=== PATIENT | female | born 1970 | race Caucasian/White ===

== ENCOUNTER 2019-08-02 09:59 | Emergency (ER) | payer BC, SELFPAY ==
--- NOTE | ~2019-08-02 | XR_ITS ---
EXAMINATION: XR chest 2V DATE: 08/02/2019 10:44 INDICATION: Shortness of breath and cough TECHNIQUE: PA and lateral views of the chest are obtained. COMPARISON: None available FINDINGS: The lungs are free of acute opacities. There is no pleural effusion or pneumothorax. The ca rdiomediastinal silhouette is normal. There is moderate thoracic spondylosis. IMPRESSION: 1. No acute cardiopulmonary abnormality. Reviewed, dictated and finalized at location A.
--- NOTE | ~2019-08-02 | CT_ITS ---
EXAMINATION: CTA chest PE protocol DATE: 08/02/2019 11:31 INDICATION: Left-sided chest pain, fever and shortness of breath TECHNIQUE: Computed tomography angiography (CTA) of the chest was performed with 100 mL Omnipaque-350 intravenous contrast timed to evaluate the pulmonary arteries. Coronal maximum intensity projection 3D-reconstructions were created by the technologist. The dose-length product (DLP) was 301.48 mGy-cm. Automated exposure control and iterative reconstruction technique were employed. COMPARISON: None. FINDINGS: The pulmonary arteries are well-opacified. No pulmonary embolism is identified. There is mi ld atelectasis of the lower lobes. No pleural effusion or pneumothorax is identified. No pathological ly enlarged thoracic lymph nodes are identified. The heart size is normal. There is mild thoracic spo ndylosis. IMPRESSION: 1. No pulmonary embolism or acute cardiopulmonary abnormality. Reviewed, dictated and finalized at location A.
--- NOTE | 2019-08-02 10:11 | ED_ITS ---
I attest that this documentation has been prepared under the direction and in the presence of Katherine Sams MD. Santos Lopez, Abbyibdc 08/02/19;10:12 HPI - URI/Sore Throat General Chief Complaint: Upper Respiratory Infection Stated Complaint: +INFLUENZA A, RIB PAIN Time Seen by Provider: 08/02/19 10:06 Related Data Allergies Allergy/AdvReac Type Severity Reaction Status Date / Time No Known Allergies Allergy Verified 08/02/19 10:11
[2019-08-02 10:14] VITALS: BP 132/91; PULSE 104; RESP 20; TEMP 37.3; O2SAT 99
--- NOTE | 2019-08-02 10:14 | ED_ITS ---
I attest that this documentation has been prepared under the direction and in the presence of Katherine Sams MD. Santos Lopez, Scribdc 08/02/19;10:14 HPI - Chest Pain General Chief Complaint: Upper Respiratory Infection Stated Complaint: +INFLUENZA A, RIB PAIN Time Seen by Provider: 08/02/19 10:06 Related Data Allergies Allergy/AdvReac Type Severity Reaction Status Date / Time No Known Allergies Allergy Verified 08/02/19 10:11
--- NOTE | 2019-08-02 10:15 | ED.GENADULT ---
HPI - General Adult General Chief complaint: Upper Respiratory Infection Stated complaint: +INFLUENZA A, RIB PAIN Time Seen by Provider: 08/02/19 10:06 Source: patient Mode of arrival: ambulatory Limitations: no limitations History of Present Illness HPI narrative: The pt is a 49 y/o female who presents to the ED c/o left-sided ribs pain onset one day ago. Pt states that she tested positive for Influenza A on 07/29/19. The pt states that she received Tamiflu and Tessalon Perles. She states that the pain radiates to the back and worsens when she coughs. She notes that she has utilized Tylenol and a heating pad to try and alleviate the pain. Pt states that she experienced a fever that resolved one day ago after taking Tylenol. She also notes that she had a fever prior to the pain beginning as well, but this also resolved. Pt reports cough and SOB that both began prior to the pain's onset. She denies N/V and rash. Pt notes that she has a PMHx of asthma and Ankylosing spondylitis. MD complaint: Left-sided ribs pain Onset (ago): day(s) (1) Location: chest (Left-sided ribs) Radiation: back Exacerbating factors: other (Coughing) Associated symptoms: cough (Onset prior to pain), fever/chills (Resolved) and shortness of breath (Onset prior to pain) Treatments prior to arrival: other (Tylenol, heating pad) Related Data Home Medications Medication Instructions Recorded Confirmed benzonatate 100 mg PO TID PRN 08/02/19 fluticasone furoate-vilanterol 1 inh INHALATION DAILY 08/02/19 [Breo Ellipta] methylprednisolone See Rx Instructions .ROUTE .COMPLEX 08/02/19 oseltamivir 75 mg PO BID 08/02/19 pantoprazole 40 mg PO DAILY 08/02/19 Allergies Allergy/AdvReac Type Severity Reaction Status Date / Time No Known Allergies Allergy Verified 08/02/19 10:11 Review of Systems Review of Systems: All systems reviewed & are unremarkable except as noted in HPI and below Constitutional: Constitutional: Reports fever(s) (Resolved) Respiratory: Respiratory: Reports cough (Onset prior to pain) and Reports dyspnea (Onset prior to pain) Gastrointestinal: Gastrointestinal: Denies nausea and Denies vomiting Musculoskeletal: Musculoskeletal: Reports other (Left-sided ribs pain that radiates to the back) Integumentary/Breasts: Skin/Breast: Denies rash PMFSH Past Medical History Medical History (Updated 08/02/19 @ 12:52 by Katherine Sams MD) [place]'s disease Ankylosing spondylitis Asthma Humberto disease GERD (gastroesophageal reflux disease) Surgical History Surgical History (Updated 08/02/19 @ 10:21 by Santos Lopez) S/P foot surgery, left Social History Social History (Updated 08/02/19 @ 10:21 by Santos Lopez) Smoking status: Never smoker Gender identity (if verbalized by the patient): Female Exam Narrative: Exam Narrative: GENERAL: Well-appearing, well-nourished, and in no acute distress. HEAD: Normocephalic, atraumatic EYES: PERRLA and EOMI, conjunctiva clear without discharge EARS: TM's clear bilaterally without erythema or dullness NOSE: Nares clear, no rhinorrhea or epistaxis THROAT:Mucous membranes moist, Oropharynx normal without erythema, exudate, peritonsillar swelling or fluctuance NECK: Supple, without lymphadenopathy or mass RESPIRATORY: No respiratory distress, Airway patent, Respirations non-labored, Expiratory wheezing to left lower, left lower anterior tenderness HEART: Regular rate and rhythm. No murmur heard. Normal peripheral pulses. ABDOMEN: Soft, nontender, nondistended, normal active bowel sounds. No masses. No rebound or guarding, No organomegaly. EXTREMITIES: No edema, normal strength with full range of motion. SKIN: Warm, dry, normal color without rash NEURO: Alert and oriented x3. CN 2-12 grossly intact. No focal deficits. PSYCH: Normal mood and affect. Course Reevaluation(s) Reevaluation #1: I have discussed with patient that her CT was negative for pneumonia and
--- NOTE | 2019-08-02 10:18 | ECG_ITS ---
Measurements Intervals [place] Rate: 92 P: 57 TX: 137 QRS: 15 QRSD: 87 T: 31 QT: 361 QTc: 449 Interpretive Statements SINUS RHYTHM BASELINE ARTIFACT- III, V1-V6 NORMAL ECG Electronically Signed On 08-02-2019 13:28:22 CDT by Gordon Serna D.O.
[2019-08-02] MEDS: IPRATROPIUM BR 0.02% INH SOLN 0.5 MG/2.5 ML VIAL INHALATION (10:28)
[2019-08-02] MEDS: ALBUTEROL SULFATE NEB 2.5 MG/0.5 ML INH 5 MG INHALATION (10:28)
[2019-08-02 10:31] VITALS: PULSE 87; RESP 18
[2019-08-02 10:35] VITALS: PULSE 88; RESP 18
[2019-08-02] MEDS: KETOROLAC 30 MG/ML VIAL (*BKC) IV PUSH (10:36)
[2019-08-02 10:38] LABS: Basophils Percent Auto 0.4 % (0.2-1.2); Eosinophils Percent Auto 0.4 % (0-4.4); Hematocrit 44.6 % (37.0-47.0); Hemoglobin 14.8 g/dL (12.0-15.0); Immature Granulocyte Absolute 0.02 K/mm3 (0.00-0.031); Immature Granulocyte Percent A 0.4 % (0-0.5); Lymphocytes Absolute Auto 1.71 K/mm3 (0.9-3.2); Lymphocytes Percent Auto 37.3 % (18.3-44.2); Mean Corpuscular HGB Conc 33.2 g/dl (32-36); Mean Corpuscular Hemoglobin 29.4 pg (26-34); Mean Corpuscular Volume 88.7 fl (80-100); Mean Platelet Volume 9.6 fl (7.4-10.4); Monocytes Absolute Auto 0.7 K/mm3 (0.1-0.6); Monocytes Percent Auto 15.9 % (2.6-8.5); Neutrophils Absolute Auto 2.1 K/mm3 (1.3-6.7); Neutrophils Percent Auto 45.6 % (45.5-73.1); Platelet Count Result 318 k/mm3 (150-375); Red Blood Count 5.03 M/mm3 (4.2-5.4); Red Cell Distribution Width 12.7 % (11.5-14.5); White Blood Count 4.6 K/mm3 (4.5-10.0)
[2019-08-02 10:46] LABS: Lactic Acid Reflex 0.7 mmol/L (0.7-2.1)
[2019-08-02 10:47] LABS: Alanine Aminotransferase 79 U/L (4-35); Albumin Level 4.2 g/dL (3.5-5.1); Alkaline Phosphatase 78 U/L (38-126); Aspartate Amino Transferase 77 U/L (14-36); Bilirubin,Total 0.5 mg/dL (0.2-1.3); Blood Urea Nitrogen 10 mg/dL (7-17); Calcium 8.6 mg/dL (8.4-10.2); Carbon Dioxide 24 mmol/L (22-30); Chloride 102 mmol/L (98-107); Estimated CRCL calculation 98 ml/min; Estimated Glomerular Filt Rate > 60; Glucose 90 mg/dL (65-105); Potassium 3.5 mmol/L (3.4-5.0); Sodium 137 mmol/L (137-145)
== END 2019-08-02 13:04 | disposition home or self-care (01) ==
PROVIDERS: Emergency Provider General Practice
DX: J10.1 Influenza due to other identified influenza virus with other respiratory manifestations (principal); J45.909 Unspecified asthma, uncomplicated; E27.1 Primary adrenocortical insufficiency; E24.9 Cushing's syndrome, unspecified; K21.9 Gastro-esophageal reflux disease without esophagitis; M45.9 Ankylosing spondylitis of unspecified sites in spine
CPT/HCPCS: 36415; 71046; 71275; 80053; 83605; 85025; 93005; 94640; 96374; 99284; J1885; Q9967

== ENCOUNTER 2021-04-11 12:23 | Emergency (ER) | payer BC, SELFPAY ==
--- NOTE | ~2021-04-11 | XR_ITS ---
EXAMINATION: XR chest 2V DATE: 04/11/2021 13:08 INDICATION: Cough and congestion TECHNIQUE: PA and lateral views of the chest were obtained. COMPARISON: Chest radiograph and CT dated 08/02/2019 FINDINGS: The lungs remain clear with no focal airspace opacities, pulmonary edema, pleural effusion or pneumot horax. The cardiomediastinal silhouette is normal. Mild thoracic levocurvature with moderate spondylo sis. IMPRESSION: 1. No acute cardiopulmonary disease. Reviewed, dictated and finalized at location A. TION CLASSIFICATION MANAGER
[2021-04-11 12:42] VITALS: BP 133/65; PULSE 91; RESP 16; TEMP 36.6; O2SAT 99
--- NOTE | 2021-04-11 12:54 | ED.URI ---
HPI - URI/Sore Throat General Chief Complaint: Upper Respiratory Infection Stated Complaint: Sinus,Sore Throat,Headache,Cough Time Seen by Provider: 04/11/21 12:54 Source: patient Mode of arrival: ambulatory Limitations: no limitations History of Present Illness HPI Narrative: Sienna Walker is a 51 yo female with a PMH of GERD, ankylosing spondylitis, who comes to [facility] with upper respiratory symptoms of sore throat, sinus drainage, headache and cough x1 week-states she is not taking [id number] meds but has not improved her symptoms Related Data Home Medications Medication Instructions Recorded Confirmed fluticasone furoate-vilanterol 1 inh INHALATION DAILY 08/02/19 [Breo Ellipta] oseltamivir 75 mg PO BID 08/02/19 pantoprazole 40 mg PO DAILY 08/02/19 Remicade 04/11/21 meloxicam 04/11/21 Allergies Allergy/AdvReac Type Severity Reaction Status Date / Time No Known Allergies Allergy Verified 08/02/19 10:11 Review of Systems Review of Systems: CONSTITUTIONAL: Denies fever, chills, sweats. EYES: Denies visual changes, redness, discharge. ENT: Denies rhinorrhea, congestion, sore throat, otalgia. CARDIOVASCULAR: Denies chest pain, palpitations, edema. RESPIRATORY: Denies dyspnea, wheezing, cough GASTROINTESTINAL: Denies abdominal pain, nausea, vomiting, diarrhea. GENITOURINARY: Denies dysuria, hematuria, abnormal discharge SKIN: Denies rash or itching. NEUROLOGIC: Denies numbness, or focal weakness. PSYCHIATRIC: Denies anxiety or depression. [facility] Past Medical History Medical History [place]'s disease Ankylosing spondylitis Asthma Humberto disease GERD (gastroesophageal reflux disease) Surgical History Surgical History S/P foot surgery, left Social History Social History Smoking status: Never smoker Gender identity (if verbalized by the patient): Female Comments At time of signature, I agree with nursing past medical, surgical, social and family history. There is no relevant family history pertinent to the presenting complaint. Exam Narrative: GENERAL: This is a well-nourished, well-developed patient, in mild distress. HEAD: normocephalic, atraumatic. EYES: PERRL. Sclera clear/white. Vision is grossly intact. EARS: External ears normal, auditory canals clear and without drainage, bulging TMs due to fluid. Hearing grossly intact. NOSE: External nose normal without nasal discharge, nares with redness, has rhinorrhea. THROAT: Mucous membranes moist, posterior pharynx erythema w PND. Voice diminished NECK: Neck supple, non-tender CARDIOVASCULAR: Regular rate and rhythm without murmurs, gallops, or rubs. RESPIRATORY: coarselear to auscultation. Breath sounds equal bilaterally. No wheezes, rales, or rhonchi. GASTROINTESTINAL: Abdomen soft, non-tender, SKIN: warm, intact with no suspicious lesions or rash, good texture and turgor. NEURO: awake, alert, and oriented to person, place and time. There were no obvious focal neurologic abnormalities. Steady gait EXTREMITIES: Normal range of motion. BACK: Nontender without deformity Course Course Emergency Course: Patient comes in with a weeks worth of worsening upper respiratory symptoms including laryngitis, ear pain and sore throat. On Remicade so may not be running fever Chest x-ray done-no acute cardiopulmonary disease Started on prednisone Zithromax Tessalon Michael; use albuterol inhaler as needed Vital Signs Vital signs: Vital Signs Temperature 97.9 F 04/11/21 12:42 Pulse Rate 91 04/11/21 12:42 Respiratory Rate 16 04/11/21 12:42 Blood Pressure 133/65 04/11/21 12:42 Pulse Oximetry 99 04/11/21 12:42 Temperature 97.9 F 04/11/21 12:42 Pulse Rate 91 04/11/21 12:42 Respiratory Rate 16 04/11/21 12:42 Blood Pressure 133/65 04/11/21 1
== END 2021-04-11 13:33 | disposition home or self-care (01) ==
PROVIDERS: Emergency Provider Nurse Practitioner; PCP Internal Medicine
DX: J04.0 Acute laryngitis (principal); J40 Bronchitis, not specified as acute or chronic; E27.1 Primary adrenocortical insufficiency; M45.9 Ankylosing spondylitis of unspecified sites in spine; J45.909 Unspecified asthma, uncomplicated; K21.9 Gastro-esophageal reflux disease without esophagitis
CPT/HCPCS: 71046; 99213; G0463

== ENCOUNTER 2021-08-28 12:55 | Emergency (ER) | payer BC, SELFPAY ==
--- NOTE | ~2021-08-28 | XR_ITS ---
EXAMINATION: XR foot RT min 3V EXAM DATE: 08/28/2021 14:21 INDICATION: Loss of toenail right 1st toe, unknown cause. Possible foreign body. TECHNIQUE: Right foot dorsoplantar, lateral and oblique projections obtained and reviewed. There is no prior study for comparison. FINDINGS: There are no bony erosions identified. Small inferior right calcaneal spur. There are no acute fractures or dislocations identified. There is no subcutaneous gas. The soft tissue is unrema rkable. There are no radiopaque foreign bodies. Mild bunion and hallux valgus. Mild to moderate os teoarthritis at the 2nd, 3rd tarsometatarsal joint. IMPRESSION: No radiopaque foreign bodies identified. Reviewed, dictated and finalized at location A.
[2021-08-28 13:26] VITALS: BP 153/91; PULSE 86; RESP 16; TEMP 36.8; O2SAT 99
[2021-08-28 13:33] VITALS: BP 153/91; PULSE 86; RESP 16; TEMP 36.8; O2SAT 99
--- NOTE | 2021-08-28 14:10 | ED.GENADULT ---
HPI - General Adult General Chief complaint: Extremity Problem,Nontraumatic Stated complaint: toenail fell off Source: patient Mode of arrival: ambulatory Limitations: no limitations History of Present Illness HPI narrative: Patient presents for evaluation of pain in the right great toe. She indicates she was walking with some friends about a month ago and had some mild discomfort at that time. Pain improved over the week. Two days ago she noted some yellow drainage from beneath the nailplate of the left great toe. The nail seemed to come of the nailbed yesterday. She was able to trim the nail back. She continues to have a throbbing sensation in the affected digit. No fever, chills, nausea, vomiting. She is diabetic. She does not smoke. Date of last tetanus unknown. She has underlying ankylosing spondylitis for which she receives remicade per rheumatology. In the past she had a UTI that progressed quite quickly to the point that she was admitted for four days for IV abx. She came in today and she was concerned this could progress quickly. Related Data Home Medications Medication Instructions Recorded Confirmed fluticasone furoate-vilanterol 1 inh INHALATION DAILY 08/02/19 08/28/21 [Breo Ellipta] pantoprazole 40 mg PO DAILY 08/02/19 08/28/21 meloxicam 15 mg PO DAILY 04/11/21 08/28/21 infliximab [Remicade] 100 mg IV USEASDIRECTD 08/28/21 08/28/21 Allergies Allergy/AdvReac Type Severity Reaction Status Date / Time No Known Allergies Allergy Verified 08/28/21 13:28 Review of Systems Review of Systems: CONSTITUTIONAL: Denies fever, chills, or sweats. EYES: Denies visual changes, redness, or discharge. ENT: Denies rhinorrhea, congestion, sore throat, or otalgia. CARDIOVASCULAR: Denies chest pain, palpitations, or edema. RESPIRATORY: Denies cough or dyspnea. GASTROINTESTINAL: Denies abdominal pain, nausea, vomiting, or diarrhea. GENITOURINARY: Denies dysuria or hematuria. SKIN: Reports yellow drainage from left great toe. MUSCULOSKELETAL: Reports pain in left great toe. Denies back pain NEUROLOGIC: Denies headache, numbness, dizziness, or weakness. PSYCHIATRIC: Denies anxiety or depression. [facility] Past Medical History Medical History (Updated 08/28/21 @ 14:32 by JAMILA AbramsP, ) [place]'s disease Ankylosing spondylitis Asthma [place] disease GERD (gastroesophageal reflux disease) Surgical History Surgical History Hx of total adrenalectomy S/P foot surgery, left Family History Family History Father Diabetes mellitus Social History Social History Smoking status: Never smoker Alcohol intake: never Substance use: never Living arrangements: with family Gender identity (if verbalized by the patient): Female Sexual Orientation (if Verbalized by the Patient): Straight or Heterosexual Spiritual care concerns: No Exam Narrative: GENERAL: Well-appearing, well-nourished, and in no acute distress. HEAD: Normocephalic, atraumatic. EYES: PERRLA and EOMI. ENT: Nares clear, no rhinorrhea or epistaxis. Mucous membranes moist. Oropharynx without tonsillar hypertrophy exudate or other lesions. Bilateral TMs pearly bartlett nonbulging NECK: Supple. No adenopathy or masses. No carotid bruits or JVD CHEST: Clear to auscultation. No respiratory distress. No wheezes rales or rhonchi HEART: Regular rate and rhythm. No murmur heard. Normal peripheral pulses. ABDOMEN: Soft, nontender, nondistended, normal active bowel sounds. EXTREMITIES: Normal range of motion. No edema. SKIN: There is a transverse incision through the nailplate of left great toe with distal portion of that nailplate absent. No discharge noted NEURO: No focal deficits. Alert and oriented x3. PSYCH: Normal mood and affect. Course Course Emergency C
[2021-08-28] MEDS: TETANUS,DIPHTHERIA,AC PERTUSSIS ADULT (0.5 ML) BOOSTRIX IM (14:49)
== END 2021-08-28 15:10 | disposition home or self-care (01) ==
PROVIDERS: Emergency Provider Nurse Practitioner; PCP Internal Medicine
DX: L03.031 Cellulitis of right toe (principal); Z23 Encounter for immunization; E27.1 Primary adrenocortical insufficiency; M45.9 Ankylosing spondylitis of unspecified sites in spine; J45.909 Unspecified asthma, uncomplicated; K21.9 Gastro-esophageal reflux disease without esophagitis; E24.9 Cushing's syndrome, unspecified
CPT/HCPCS: 73630; 90471; 90715; 99213; G0463

== ENCOUNTER 2024-12-14 04:11 | Inpatient (IN) | payer BC, SELFPAY ==
[2024-12-14] VITALS (16 sets, daily range): BP systolic 100–128; BP diastolic 50–88; PULSE 74–100; RESP 15–22; TEMP 36.6–36.9; O2SAT 91–99; BMI 29.7
--- NOTE | ~2024-12-14 | CT_ITS ---
CLINICAL INDICATION: Abdominal pain and diverticulitis without along the spine. Upper lobes are favored. If COMPARISON: . TECHNIQUE: Multiple contiguous axial images of the abdomen and pelvis were performed following the ad ministration of with 100 mL Omnipaque-350 intravenous contrast The dose-length product (DLP) was 694.32 mGy-cm. Automated exposure control and iterative reconstruction technique were employed. FINDINGS/OBSERVATIONS: Visualized lower thorax: Redemonstration of atelectasis along the medial right lung base. The remainder of the bilateral lung bases are clear. The heart is of normal size, without pericardial effusion. Small hiatal hernia is present. Liver: The liver demonstrates homogeneous enhancement and is not enlarged. Gallbladder and biliary system: The gallbladder is only minimally distended, and otherwise unremarkable. Pancreas: The pancreas enhances homogeneously without ductal dilatation. Spleen: The spleen enhances homogeneously and is not enlarged. Kidneys: The bilateral kidneys enhance symmetrically without hydronephrosis or renal calculi. Adrenal glands: Unremarkable. Gastrointestinal tract: Redemonstration of mural thickening within the proximal sigmoid colon. On today's study, there are very few diverticulum in this area, which raises the concern for a possib le malignancy. Follow-up to resolution is recommended, as is direct visualization when patient is cli nically able. No gross perforation or drainable fluid collection. . Appendix: The appendix is not definitively visualized. However, no pericecal inflammatory change is identified suggest the presence of acute appendicitis. Vasculature: Unremarkable. Lymph nodes: No pathologically enlarged or morphologically suspicious lymph nodes within the retroperitoneum or at the root of the mesentery. Pelvic structures: The bladder is only minimally distended, and otherwise unremarkable. The uterus is either surgically absent or markedly atrophic. Body wall and musculoskeletal: Small fat-containing umbilical hernia. Age advanced degenerative disease within the lower thoracic and lumbosacral spines. IMPRESSION: Redemonstration of mural thickening within the proximal sigmoid colon. The diverticulum are less prom inent on today's examination for which the possibility of malignancy is suggested. Follow-up to resolution is again recommended as a malignancy has a similar appearance. No drainable fluid collection or gross perforation is appreciated Reviewed, dictated and finalized at location A. IMPRESSION: Redemonstration of mural thickening within the proximal sigmoid colon. The dive rticulum are less prominent on today's examination for which the possibility of malignancy is suggested. Follow-up to resolution is again recommended as a malignancy has a similar appe arance. No drainable fluid collection or gross perforation is appreciated
--- NOTE | ~2024-12-14 | XR_ITS ---
Exam: Abdomen 1V HISTORY: abd pain, constipation in a 50-year-old patient with acute diverticulitis COMPARISON: Reference is made to CT examination of the abdomen and pelvis performed 48 hours earlier which demonstrated acute diverticulitis of the sigmoid colon TECHNIQUE: Supine images of the abdomen FINDINGS: Gaseous distention of the stomach. A paucity of bowel gas is identified within the left lower quadrant, consistent with patient's known inflammatory change. There is no free air or deep sulci. No pathologic calcifications are seen. Lung bases are unremarkable. Age advanced degenerative disease within the lumbar spine. IMPRESSION: A paucity of bowel gas within the left lower quadrant consistent with patient's known sigmoid diverti culitis for which follow-up CT examination may be performed for if the concern is for possible progre ssion to abscess formation. Follow-up to resolution is recommended as a malignancy has a similar appearance. Reviewed, dictated and finalized at location A. IMPRESSION: A paucity of bowel gas within the left lower quadrant consistent with patient's known sigmoid diverticulitis for which follow-up CT examination may be perform ed for if the concern is for possible progression to abscess formation. Follow-up to resolution is recommended as a malignancy has a similar appearance .
--- NOTE | ~2024-12-14 | CT_ITS ---
CLINICAL INDICATION: Left lower quadrant pain COMPARISON: None. TECHNIQUE: Multiple contiguous axial images of the abdomen and pelvis were performed following the ad ministration of with 100 mL Omnipaque-350 intravenous contrast The dose-length product (DLP) was 674.65 mGy-cm. Automated exposure control and iterative reconstruction technique were employed. FINDINGS/OBSERVATIONS: Visualized lower thorax: Medial right basilar atelectasis. The remainder of the bilateral lung bases are clear. The heart is borderline enlarged, without pericardial effusion. Small hiatal hernia is present. Liver: The liver demonstrates homogeneous enhancement and is not enlarged. Gallbladder and biliary system: The gallbladder is distended, and otherwise unremarkable. Pancreas: The pancreas enhances homogeneously without ductal dilatation. Spleen: The spleen enhances homogeneously and is not enlarged. Kidneys: The bilateral kidneys enhance symmetrically without hydronephrosis or renal calculi. Adrenal glands: Unremarkable. Gastrointestinal tract: Mural thickening and surrounding inflammatory changes identified within the distal descending colon, with infiltration of the adjacent mesentery, findings consistent with (likely) acute diverticulitis f or which follow-up to resolution is recommended as a malignancy can have a similar appearance. Appendix: The air-filled appendix is of normal caliber (axial series, images 136 through 145). Vasculature: Unremarkable. Lymph nodes: No pathologically enlarged or morphologically suspicious lymph nodes within the retroperitoneum or at the root of the mesentery. Pelvic structures: The bladder is only minimally distended, and otherwise unremarkable. The uterus is either atrophic or surgically absent. Body wall and musculoskeletal: Small fat-containing umbilical hernia. Age advanced degenerative disease within the lumbosacral spine without acute compression fracture. IMPRESSION: Mural thickening and surrounding inflammatory change within the distal descending colon, with infiltr ation of the adjacent mesentery, consistent with (likely) acute diverticulitis for which follow-up to resolution is recommended as a malignancy can have a similar appearance. No gross perforation or drainable fluid collection. Reviewed, dictated and finalized at location A. IMPRESSION: Mural thickening and surrounding inflammatory change within the distal descendi ng colon, with infiltration of the adjacent mesentery, consistent with (likely) acute diverticulitis for which follow-up to resolution is recommended as a mal ignancy can have a similar appearance. No gross perforation or drainable fluid collection.
--- OUTSIDE RECORDS SUMMARY | 2024-12-14 04:13 | XMS_ITS ---
Author Organization [facility] Address [address] [place], [place] [id number] Care Team Providers Care Milker Machine Name Role Phone Jaleel CONROY, Abelino Primary Care Provider UnavailClarisa Sykes Unavailable [phone] REASON FOR VISIT Cancel Appointment Request Encounters Encounter Location Date Provider Diagnosis [facility] [address] [place], [place] [id number] 12/02/2024 Clarisa Arreaga PLAN OF TREATMENT No Information
--- OUTSIDE RECORDS SUMMARY | 2024-12-14 04:13 | XMS_ITS | Patient Health Record ---
Author Organization [facility] Address [address] [facility] [address] [place], [place] [address] Care Team Providers Care Freelance Operator Name Role Phone Abelino Marmolejo Primary Care Provider Jackson Scott Unavailable [phone] Migration, Provider Unavailable Unavailable Allergies No Known Allergies Reason For Referral No Information Medications Medication SIG (Take, Route, Frequency, Duration) Notes Start Date End Date Status Singulair 10 MG 1 tab(s) orally once a day for 30 day(s) Unknown KENALOG IN ORA BASE 0.1% USE PEA SIZE AMOUNT ON TONGUE 2-3 TIMES A DAY, MAY APPLY BY HAND OR WITH TOOTH BRUSH ORALLY BID for 14 DAYS *Please review for potential replacement for e-prescription and drug interaction check* 08/16/2022 Active Cyclobenzaprine HCl 10 MG 1 tab(s) orally 3 times a day Unknown Albuterol Sulfate (2.5 MG/3ML) 0.083% 3 mL inhaled every 6 hours as needed for 30 day(s) Unknown metFORMIN HCl 500 MG 1 tab(s) orally 2 times a day for 30 day(s) Unknown Meloxicam 15 MG 1 tab(s) orally once a day for 30 day(s) Unknown MAGIC MOUTHWASH BENADRYL 50MG/5ML, MAALOX [id number]/5ML, LIDOCAINE VICOUS 2% 5ML ORALLY, SWISH AND SPIT TID for 7 DAYS *Please review for potential replacement for e-prescription and drug interaction check* 07/26/2022 Unknown Remicade *Please review a nd pick correct strength-formulati on from Medispan options. If intended option is not shown, discontinue and re-order from Quick Search* Unknown Breo Ellipta 100 MCG-25 MCG/INH 1 PUFF(S) INHALED ONCE A DAY for 30 DAY(S) *Please review and pick correct strength-formulati on from Medispan options. If intended option is not shown, discontinue and re-order from Quick Search* Unknown NexIUM 40 MG 1 cap(s) orally once a day for 30 day(s) Unknown traMADol HCl 50 MG 1 tab(s) orally every 6 hours Unknown Problems Problem Type SNOMED Code ICD Code Onset Dates Problem Status W/U Status Risk Notes Problem Ankylosing spondylitis (0564337) Ankylosing spondylitis sacral and sacrococcygeal region (M45.8) Active confirmed Problem Allergic rhinitis (17194404) Allergic rhinitis, unspecified (J30.9) Active confirmed Problem Uncomplicated mild persistent asthma (997003334) Mild persistent asthma, uncomplicated (J45.30) Active confirmed Encounters Encounter Location Date Provider Diagnosis [facility] [address] [facility] [address] [place], [place] [id number] 05/03/2024 Provider Migration Ankylosing spondylitis sacral and sacrococcygeal region M45.8 Assessments Encounter Date Diagnosis (ICD Code) Assessment Notes Treatment Notes Treatment Clinical Notes Section Notes 05/03/2024 Ankylosing spondylitis sacral and sacrococcygeal region (ICD-10 - M45.8) Plan Of Treatment No Information Insurance Providers Payer Name Payer Address Payer Phone Subscriber Number Group Number Insured Name Patient Relationship to Insured Coverage Start Date Coverage End Date [facility] [address] [place] [address] [id number] Sienna Martines Self - patient is the insured Medical (General) History Medical History History ICD Code Pertinent Medical History: H istory of Allergies, Throat/Neck problems, Asthma, Other, Surgical History Surgery Date(Month/Year) adrenal gland removal 2014 foot surgery 2010 hernia 2015/2016 hysterectomy 2018
--- OUTSIDE RECORDS SUMMARY | 2024-12-14 04:14 | XMS_ITS ---
Author Organization [facility] Address [address] [place] [address] Care Team Providers Care Wharf Labourer Name Role Phone Abelino Marmolejo MD Primary Care Provider Abelino Marmolejo MD Unavailable [phone] Hansa Cheng MD Unavailable Cirilo Guzman MD Unavailable [phone] Vicki Mackay MD Unavailable Active Problems Problem Noted Date Diagnosed Date Vomiting without nausea 03/18/2024 Epigastric pain 03/18/2024 Skin lesion of right leg 04/24/2022 Neck pain 04/24/2022 Elevated C peptide level 04/24/2022 COVID-19 11/10/2021 Allergic rhinitis due to animal hair and dander 05/12/2021 Carpal tunnel syndrome of left wrist 05/12/2021 Carpal tunnel syndrome of right wrist 05/12/2021 Thrombocytosis 05/12/2021 History of tobacco use 05/12/2021 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 2020 Low back pain 05/12/2021 Pain in joint involving pelvic region and thigh 05/12/2021 Pain in thoracic spine 05/12/2021 Rectal bleeding 05/12/2021 Urinary urgency 05/12/2021 GERD (gastroesophageal reflux disease) Hematochezia 02/08/2021 Essential hypertension 12/14/2020 Acute pyelonephritis 11/03/2020 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 Hernández on 04/1998 based on inflammatory back pain; sacroiliitis; elevated CRP. Treated with sulfasalazine and Vioxx. Added Enbrel (very briefly) 1999. Remicade started 10/2005. Excellent response. Asthma Current Treatment and Therapy Plans No current plan information found. Other Current Plans INFLIXIMAB (REMICADE)??THERAPY PLAN* Plan Start Date:03/30/2023 Plan Provider:Yuan Garcia MD Linked Problems Ankylosing spondylitis, unsp ecified site of spine (HCC)Secondary adrenal insufficiency (HCC) Treatment Medications No medications scheduled. 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 Extensive workup showed evidence for adrenal adenoma. Surgery at 09/2013; had cortisol producing tumor.
--- OUTSIDE RECORDS SUMMARY | 2024-12-14 04:14 | XMS_ITS | Patient Health Record ---
Author Organization [facility] Address [address] [place], [place] [id number] Care Team Providers Care Ice Guard [employer] Name Role Phone Greta Early Unavailable [phone] Allergies No Known Allergies Reason For Referral No Information Medications Medication SIG (Take, Route, Frequency, Duration) Notes Start Date End Date Status metFORMIN HCl 500 MG 1 tablet with a vanessa l Orally Once a day Active Cosentyx Sensoready Pen 150 MG/ML Inject 1 pen (150mg) Subcutaneous on week 4 and then every 4 weeks thereafter for 84 days 11/27/2024 02/19/2025 Active NexIUM 40 MG 1 capsule 1/2 to 1 h our before morning meal Orally Once a day Active Medrol 4 MG 1 tablet with food o r milk Orally every 12 hrs Active Spironolactone 100 MG 1 tablet Orally On ce a day Active Cosentyx Sensoready Pen 150 MG/ML Inject 1 pen (150mg) Subcutaneous on week 0, 1, 2, and 3 11/27/2024 Active Albuterol Sulfate 0.63 MG/3ML as directed Inhalation Activ e Estradiol 0.5 MG 1 tablet Orally Once a day Active Meloxicam 15 MG 1 tablet Orally Once a day Active Social History Tobacco Use: Social History Observation Description Date Details (start date - stop date) Never Smoker NA - NA Sex Assigned At : Social History Observation Description Sex Assigned At Unknown Tobacco Control (Standard) Question Answer Notes Tobacco use: Nonsmoker Problems Problem Type SNOMED Code ICD Code Onset Dates Problem Status W/U Status Risk Notes Problem [id number] Arthropathic psoriasis, unspecified (L40.50) Active confirmed Problem Chronic fatigue syndrome (54395587) Chronic fatigue (R53.82) Active confirmed Problem Rheumatoid arthritis (81369266) Rheumatoid arthritis, involving unspecified site, unspecified whether rheumatoid factor present (M06.9) Active confirmed Problem Raised antinuclear antibody (350658483) Positive TANIA (antinuclear antibody) (R76.8) Active confirmed Problem Psoriasis (7415578) Psoriasis (L40.9) Active confirmed Problem Dry mouth (11324717) Dry mouth (R68.2) Active confirmed Problem Oral ulcer (99635740) Oral ulcer (K12.1) Active confirmed Problem Osteoarthritis (611868562) OA (osteoarthritis ) (M19.90) Active confirmed Problem Gastroesophageal reflux disease (566980132) GERD (gastroesophage al reflux disease) (K21.9) Active confirmed Problem Ankylosing spondylitis (9134706) (ankylosing spondylitis) (M45.9) Active confirmed Problem PsA (Psoriatic arthritis) (408856169) PSA (psoriatic arthritis) (L40.50) Active 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 Problem 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 Vital Signs Height-cm 160.02 cm 11/26/2024 Weight-kg 77.11 kg 11/26/2024 Height 63 in 11/26/2024 Weight 170 lbs 11/26/2024 BMI 30.11 kg/m2 11/26/2024 Encounters Encounter Location Date Provider Diagnosis [address] [place], [place] [id number] 11/26/2024 Greta Espurvoa Arthropathic psoriasis, unspecified L40.50 ; Other halfway (current) drug therapy Z79.899 and Routine health maintenance Z00.00 Assessments Encounter Date Diagnosis (ICD Code) Assessment Notes Treatment Notes Treatment Clinical Notes Section Notes 11/26/2024 Arthropathic psoriasis, unspecified (ICD-10 - L40.50) Ms. Walker is a 54 year-old female with psoriatic arthritis, currently managed by Dr. Osuna. At this time, patient will begin Cosentyx. Patient will be monitored night supervisor for symptom control and side effects. LABS: QuantiFERON-TB Gold (11/03/2024): Negative Hepatitis B Surface Antigen (11/03/2024): NR Psoriatic Arthritis is chronic in nature with periods of remission and flares. Flares can be triggered by stress, infections (group A strep), certain medications, and alcohol. Discussed Cosentyx can worsen Crohn's disease, immunosuppressi on, allergic reactions and infections. Instructed to call the office with any concerns. 11/26/2024 Other night supervisor (current) drug therapy (ICD-10 - Z79.899) When on high-risk medications, patient must be vigilant about any new symptoms and understand the risks and side effects of their treatment. Biologic/small molecule medications can have significant side effects that may require blood test monitoring on a regular basis. Patient to contact providers for fever, chills, night sweats, malaise, abdominal pain, weakness, fatigue, headaches, infections, difficulty breathing or persistent cough, new skin lesions, or other unusual symptoms. 11/26/2024 Routine health maintenance (ICD-10 - Z00.00) https://www.cdc .gov/vaccines/s chedules/downlo ads/adult/adult -combined-sched ule.pdf 11/26/2024 Other Plan Of Treatment No Information Medical (General) History Medical History History ICD Code PSA (psoriatic arthritis) L40.50 Psoriasis L40.9 (ankylosing spondylitis) M45.9 OA (osteoarthritis) M19.90 Humberto's syndrome E24.9 GERD (gastroesophageal reflux disease) K 21.9 Chronic fatigue R53.82 Oral ulcer K12.1 Lichen planopilaris L66.10 Dry mouth R68.2 Positive TANIA (antinuclear antibody) R76. 8 Hospitalization History Reason Date(Month/Year) Visited urgent care due to cold 07/2024
--- OUTSIDE RECORDS SUMMARY | 2024-12-14 04:14 | XMS_ITS ---
Author Organization [facility] Address [address] [facility] [address] [place], [place] [address] Care Team Providers Care Editor Continuity And Script Name Role Phone Abelino Marmolejo Primary Care Provider UnavailJackson Miguel Unavailable [phone] Migration, Provider Unavailable Unavailable [facility] Encounter Medications Medication SIG (Take, Route, Frequency, Duration) Notes Start Date End Date Status Cyclobenzaprine HCl 10 MG 1 tab(s) orally 3 times a day Unknown Meloxicam 15 MG 1 tab(s) orally once a day for 30 day(s) Unknown Breo Ellipta 100 MCG-25 MCG/INH 1 PUFF(S) INHALED ONCE A DAY for 30 DAY(S) *Please review and pick correct strength-formulati on from [facility] options. If intended option is not shown, discontinue and re-order from Quick Search* Unknown NexIUM 40 MG 1 cap(s) orally once a day for 30 day(s) Unknown traMADol HCl 50 MG 1 tab(s) orally every 6 hours Unknown Singulair 10 MG 1 tab(s) orally once a day for 30 day(s) Unknown KENALOG IN ORA BASE 0.1% USE PEA SIZE AMOUNT ON TONGUE 2-3 TIMES A DAY, MAY APPLY BY HAND OR WITH TOOTH BRUSH ORALLY BID for 14 DAYS *Please review for potential replacement for e-prescription and drug interaction check* 08/16/2022 Active Albuterol Sulfate (2.5 MG/3ML) 0.083% 3 mL inhaled every 6 hours as needed for 30 day(s) Unknown MAGIC MOUTHWASH BENADRYL 50MG/5ML, MAALOX [id number]/5ML, LIDOCAINE VICOUS 2% 5ML ORALLY, SWISH AND SPIT TID for 7 DAYS *Please review for potential replacement for e-prescription and drug interaction check* 07/26/2022 Unknown Remicade *Please review a nd pick correct strength-formulati on from [employer] options. If intended option is not shown, discontinue and re-order from Quick Search* Unknown metFORMIN HCl 500 MG 1 tab(s) orally 2 times a day for 30 day(s) Unknown Encounters Encounter Location Date Provider Diagnosis [facility] [address] [facility], [place] [id number] 05/03/2024 Provider Migration Ankylosing spondylitis sacral and sacrococcygeal region M45.8 Assessments Encounter Date Diagnosis (ICD Code) Assessment Notes Treatment Notes Treatment Clinical Notes Section Notes 05/03/2024 Ankylosing spondylitis sacral and sacrococcygeal region (ICD-10 - M45.8) Plan Of Treatment Medication Medication Name Sig Start Date Stop Date Notes KENALOG IN ORA BASE 0.1% USE PEA SIZE AMOUNT ON TONGUE 2-3 TIMES A DAY, MAY APPLY BY HAND OR WITH TOOTH BRUSH ORALLY BID for 14 DAYS 08/16/2022 *Please review for potential replacement for e-prescription and drug interaction check* Progress Notes * KAYLEE ColtOB:[birth year] (54 yo F)Acc No.[id number]:05/03/2024 Patient: Sienna HERNANDEZ Provider: Larissa Edgar :1970 A ge:54 Y S ex:Female Date:05/03/2024 Address:[address] [place] [address] Pcp:Abelino Marmolejo Subjective: * Chief Complaints: * 1 . [facility] Encounter. * Medical History: * Medications: U nknown Singulair 10 MG Tablet 1 tab(s) orally once a day , Unknown Albuterol Sulfate (2.5 MG/3ML) 0.083% Nebulization Solution 3 mL inhaled every 6 hours as needed , Unknown Cyclobenzaprine HCl 10 MG Tablet 1 tab(s) orally 3 times a day , Unknown traMADol HCl 50 MG Tablet 1 tab(s) orally every 6 hours , Unknown NexIUM 40 MG Capsule Delayed Release 1 cap(s) orally once a day , Unknown Breo Ellipta 100 MCG-25 MCG/INH POWDER 1 PUFF(S) INHALED ONCE A DAY , Notes to Pharmacist: *Please review and pick correct strength-formulation from [employer] options. If intended option is not shown, discontinue and re-order from Quick Search*, Unknown Meloxicam 15 MG Tablet 1 tab(s) orally once a day , Unknown metFORMIN HCl 500 MG Tablet 1 tab(s) orally 2 times a day , Unknown Remicade , Notes to Pharmacist: *Please review and pick correct strength-formulation from [facility] options. If intended option is not shown, discontinue and re-order from Quick Search*, Unknown MAGIC MOUTHWASH BENADRYL 50MG/5ML, MAALOX [id number]/5ML, LIDOCAINE VICOUS 2% BENADRYL 20ML, MAALOX 20ML, VICOUS LIDOCAINE 20ML 5ML ORALLY, SWISH AND SPIT TID , Notes to Pharmacist: *Please review for potential replacement for e-prescription and drug interaction check* Objective: * Vitals: * Physical Examination: Assessment: * Assessment: 1. A nkylosing spondylitis sacral and sacrococcygeal region - M45.8 Plan: * Treatment: * Images: * Electronic signature of Prov ider Migration on 12/14/2024 at 04:13 AM CDT Sign off status: Pending * Provider: Larissa padilla Migration Date: 07/04/2023 Generated for Jonny good/Mira/Giorgio on: 12/14/2024 04:13 AM CDT
--- OUTSIDE RECORDS SUMMARY | 2024-12-14 04:14 | XMS_ITS | Encounter Summary ---
Author Organization [facility] Address [address] [place] [address] Care Team Providers Care Director Payer Name Role Phone Abelino Marmolejo MD Primary Care Provider Abelino Marmolejo MD Unavailable [phone] Hansa Cheng MD Unavailable [phone] Tereso Gardner MD Unavailable [phone] Cirilo Guzman MD Unavailable [phone] Marquise Peres MD Unavailable [phone] Vicki Mackay MD Unavailable Encounter Details Date Type Department Care Team (Late st Contact Info) Description 01/20/2016 [facility] [address] [place] [address] [place] [address] 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 Gender Identity Not on file Sexual Orientation Not on file documented as of this encounter Plan of Treatment Upcoming Encounters Date Type Department Care Team (Late st Contact Info) Description 01/08/2025 11:20 AM CDT Office Visit [facility] - Endocrinology [address] [facility], [address] [place] [address] [place] [address] [facility] [address] [place] [address] 02/10/2025 10:45 AM CDT Office [place] [facility] [place] [address] [facility] [address] [place] [address] [place] [address] [facility] [address] [place] [address] 11/16/2025 10:30 AM CDT Office Visit [facility] - OLERICULTURE PROFESSOR [address] [facility] [address] [place] [address] Heath Hernandez MD [address] [facility] [address] [place] [address] documented as of this encounter Visit Diagnoses Not on filedocumented in this encounter Care Teams Director Payer Relationship Specialty Start [place] [address] [place] [address] PCP - General Internal Medicine 01/17/16 [place] [address] [place] [address] Internal Medicine 01/17/16 [place] [address] [facility] [address] [place] [address] Endocrinology 11/18/14 [place] [address] [facility] [address] [place] [address] Obstetrics and Gynecology 11/18/14 Cirilo Guzman MD [address] [facility] [address] [place] [address] Rheumatology 11/18/14 Marquise Peres MD [address] [place] [address] Obstetrics and Gynecology 04/11/1708/19 Vicki Mackay MD [address] [place] [address] Surgery 02/13/18 documented as of this encounter
--- OUTSIDE RECORDS SUMMARY | 2024-12-14 04:14 | XMS_ITS | Clinical Summary ---
Author Organization [facility] Address [address] [place] [address] Care Team Providers Care Hotel Operations Manager Name Role Phone Abelino Marmolejo MD Primary Care Provider Abelino Marmolejo MD Unavailable [phone] Hansa Cheng MD Unavailable [phone] Cirilo Guzman MD Unavailable [phone] Vicki Mackay MD Unavailable [phone] Source Comments [facility],non-owned Affiliates and Associated Physician Practices is amultiple site organization consisting of ambulatory clinics and hospital sitesin [place], [place], [place] and [place]. This disclosure is being madepursuant to the Care Everywhere program and may not contain all information available regarding this patient. Last updated 18.[facility] Allergies No known active allergies Medications * Be aware that medications may not be up to date on this document. Alwaysverify current medications with the patient. inFLIXimab (REMICADE) injection 5 mg/kg by Intravenous route every 8 weeks Active albuterol HFA (PROVENTIL;JIMMY CHAO;PROAIR) 108 (90 Base) MCG/ACT inhaler Inhale 2 (two) puffs by mouth every 4 hours as needed for Shortness of Breath or Wheezing Active metFORMIN (GLUCOPHAGE) 500 MG tablet Take 1 (one) tablet by mouth 2 times daily 2 Active meloxicam (Mobic) 15 MG tablet Take 1 (one) tablet by mouth once daily Active esomeprazole (NexIUM) 40 MG capsule Take 1 (one) capsule by mouth 2 times daily, before breakfast and supper 60 capsule 11 4 Active spironolactone (Aldactone) 100 MG tabletIndication s:Hair loss,Acne, unspecified acne type Take 1 (one) tablet by mouth once daily 5 Active estradiol (Estrace) 0.5 MG tabletIndication s:Postmenopausal symptoms TAKE 1 (ONE) TABLET BY MOUTH ONCE DAILY REPLACING ESTRATEST SCRIPT 90 tablet 2 5 Active amitriptyline (Elavil) 25 MG tabletIndication s:Epigastric pain,Early satiety TAKE 1 TABLET BY MOUTH EVERY DAY IN THE EVENING 90 tablet 2 5 Active Active Problems Problem Noted Date Diagnosed Date Vomiting without nausea 03/18/2024 Epigastric pain 03/18/2024 Skin lesion of right leg 04/24/2022 Neck pain 04/24/2022 Elevated C peptide level 04/24/2022 COVID-19 11/10/2021 Allergic rhinitis due to animal hair and dander 05/12/2021 Carpal tunnel syndrome of left wrist 05/12/2021 Carpal tunnel syndrome of right wrist 05/12/2021 Thrombocytosis 05/12/2021 History of tobacco use 05/12/2021 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 2020 Low back pain 05/12/2021 Pain in joint involving pelvic region and thigh 05/12/2021 Pain in thoracic spine 05/12/2021 Rectal bleeding 05/12/2021 Urinary urgency 05/12/2021 GERD (gastroesophageal reflux disease) Hematochezia 02/08/2021 Essential hypertension 12/14/2020 Acute pyelonephritis 11/03/2020 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 06/10/2018 Left inguinal hernia 01/20/2016 Vitamin D deficiency 03/04/2015 Hypotestosteronism 11/18/2014 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 Hernández on 04/1998 based on inflammatory back pain; sacroiliitis; elevated CRP. Treated with sulfasalazine and Vioxx. Added Enbrel (very briefly) 1999. Remicade started 10/2005. Excellent response. 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 Extensive workup showed evidence for adrenal adenoma. Surgery at 09/2013; had cortisol producing tumor. Encounters Date Type Department Care Team Description 11/10/2024 10:30 AM CDT Office Visit [facility] - GEOPHYSICAL LABORATORY SUPERVISOR [address] [place] [address] Heath Hernandez MD LOCO III (vulvar intraepithelial neoplasia III) (Primary Dx) 11/10/2024 Travel 10/18/2024 Refill [facility] [place] [address] [address] , [address] [phone] Nas Asencio MD Refill Request from Last 3 Months Family History Medical History Relation Name Comments Cancer - Skin, Melanoma Brother 1 SMOL SANDRA MULITIPLE MYELOMA Diabetes Brother 2 Diabetes Father Aneurysm Maternal Grandmother Cancer - Other Maternal Grandmother LYMPH MERA Kidney Disease Maternal Grandmother Cancer - Pancreatic Mother Cancer - Colon Paternal Aunt GREAT Cancer - Ovarian Paternal Grandmother Hypertension Neg Hx Thyroid Disease Neg Hx Relation Name Status Comments Brother 1 Alive Brother 2 Father Alive Maternal Grandmother Mother Alive Paternal Aunt GREAT Alive Paternal Grandmother Social History Tobacco Use Types Packs/Day Years Used Date Smoking Tobacco: Former Cigarettes Q uit: 04/28/2003 Smokeless Tobacco: Never Tobacco Cessation:Counseling Given: Not Answered Alcohol Use Standard Drinks/Week Comments Yes 1 (1 standard drink = 0.6 oz pur e alcohol) occasional PHQ-2 Answer Date Recorded Patient Health Questionnaire-2 Score 0 11/10/2024 Comments No Sex and Gender Information Value Date Recorded Sex Assigned at Not on file Legal Sex Female 6:59 AM HEALTH UNIT SUPERVISOR Gender Identity Not on file Sexual Orientation Not on file Last Filed Vital Signs Vital Sign Reading Time Taken Comments Blood Pressure 124/72 11/10/2024 9:58 AM CDT Pulse 101 06/26/2024 10:23 AM HEALTH UNIT SUPERVISOR Temperature 36.5 C (97.7 F) 03/25/2024 7:27 AM HEALTH UNIT SUPERVISOR Respiratory Rate 23 03/25/2024 7:45 AM HEALTH UNIT SUPERVISOR Oxygen Saturation 99% 06/26/2024 10:23 AM HEALTH UNIT SUPERVISOR Inhaled Oxygen Concentration - - Weight 78 kg (172 lb) 11/10/2024 9:58 AM CDT Height 160 cm (5' 3) 11/10/2024 9:58 AM CDT Body Mass Index 30.47 11/10/2024 9:58 AM CDT Plan of Treatment Upcoming Encounters Date Type Department Care Team (Late st Contact Info) Description 01/08/2025 11:20 AM CDT Office Visit [facility] - Endocrinology [address] [place] [address], [address] [place] [phone] [place] [id number] [place] [address] [address] [place] [address] 02/10/2025 10:45 AM CDT Office [place] [address] [address], [facility] [address] [place] [address] [place] [address] [address] [facility] [address] [place] [phone] 11/16/2025 10:30 AM CDT Office Visit [facility] - GEOPHYSICAL LABORATORY SUPERVISOR [address] [place] [phone] Heath Hernandez MD [address] [facility] [place] [address] Health Maintenance Due Date Last Done Comments COLOGUARD (AGES 45-75) - COLON CA SCREENING 1970 CT COLONOGRAPHY - COLON CA SCREENING 1970 FIT - COLON CA SCREENING 1970 FLEX SIG - COLON CA SCREENING 1970 HIV SCREENING 1985 DTAP/TDAP/TD VACCINES (1 - Tdap) 1989 HEPATITIS B VACCINE (1 of 3 - 19+ 3-dose series) 1989 PNEUMOCOCCAL VACCINE 50+ (1 of 2 - PCV) 1989 ZOSTER VACCINE (1 of 2) 2020 COVID-19 VACCINE (4 - 2023- season) 2024 05/16/2021, 08/20/2020, 07/30/2020 INFLUENZA VACCINE (#1) 2025 05/26/2021, 2019 MAMMOGRAM 12/31/2025 01/01/2024, 08/12/2022, 12/26/2022, Additional history exists LIPID TESTING 03/14/2027 03/14/2022, 02/28/2011 SCREENING FOR DIABETES 06/21/2027 , 06/21/2024, 11/28/2023, Additional history exists PAP with HPV 11/11/2028 11/12/2023 COLON MONITORING 08/07/2033 08/08/2023, , 03/20/2016, Additional history exists COLONOSCOPY - COLON CA SCREENING 08/07/2033 08/08/2023, 08/08/2023, 03/20/2016, Additional history exists Colorectal Cancer Screening 08/07/2033 HEPATITIS C SCREENING Completed 01/09/2023 , 09/20/2022, 02/23/2010 DEPRESSION SCREENING Completed 11/10/2024, 11/07/19 23 HIB VACCINE Aged Out No longer eligi ble based on patient's age to complete this topic HPV VACCINE Aged Out No longer eligi ble based on patient's age to complete this topic MENINGOCOCCAL (Group B) VACCINE SHARED DECISION-MAKING Aged Out No longer eligible based on patient's age to complete this topic MENINGOCOCCAL GROUPS A/C/Y/W VACCINE Aged Out No longer eligible based on patient's age to complete this topic Medical Devices Implanted Type Area Apartment Groundskeeper Device Identifier Shelf Expiration Date Model / Serial / Lot Perfix Plug Large Implanted:Qty: 1 on 05/03/2016 by Jaylan Naravez MD at [facility] Left: [employer] 10/15/2021 [id number] / / [id number] Procedures Procedure Name Priority Date/Time Associated Diagnosis Comments PAP IMAGE-GUIDED Routine 11/10/2024 10:4 8 AM CDT LOCO III (vulvar intraepithelial neoplasia III) BASIC METABOLIC PANEL (CALCIUM TOTAL) Routine 06/21/2024 9:04 AM HEALTH UNIT SUPERVISOR Secondary adrenal insufficiency Essential hypertension Hyperkalemia MAMMO BILAT SCREENING W MICAH Routine 01/01/2024 11:29 AM CDT Encounter for screening mammogram for malignant neoplasm of breast HPV DETECTION HIGH RISK CYNDY Routine 11/12/2023 9:30 AM CDT LOCO III (vulvar intraepithelial neoplasia III) ENDOSCOPY, COLON, DIAGNOSTIC Routine 08/08/2023 10:23 AM CDT Hematochezia HEPATITIS C ANTIBODY Routine 01/09/2023 10:14 AM CDT Ankylosing spondylitis of multiple sites in spine Immunosuppressed status High risk medication use Polyarthralgia Osteoarthritis of multiple joints, unspecified osteoarthritis type LIPID PROFILE Routine 02/28/2011 1:28 PM CDT Pure hypercholesterolemia from Last 3 Months or Most Recently Relevant to Health Maintenance Results * PAP IMAGE-GUIDED (11/10/2024 10:48 AM CDT) Case Report Gynecologic Cytology Report Case: [id number] Authorizing Provider: Heath Hernandez MD Collected: 11/10/2024 10:48 AM Ordering Location: [facility] - Received: 11/10/2024 10:49 AM GEOPHYSICAL LABORATORY SUPERVISOR First Screen: Perico Barker CT(ASCP) Specimen: THINPREP - IMAGE GUIDED, Vagina 11/12/2024 9:40 AM CDT [facility] LMP unknown 11/12/2024 9:40 AM CDT [facility] Menstrual Status None Applicable 9:40 AM CDT [facility] Specimen Adequacy Satisfactory for evaluation. 11/12/2024 9:40 AM CDT [facility] Categorization Negative for intraepithelial lesion or malignancy. 11/12/2024 9:40 AM CDT [facility] Interpretation BARREL PLANER Negative for intraepithelial lesion or malignancy. 11/12/2024 9:40 AM CDT [facility] at 0940 CDT Pap Footnote The Pap Smear is a screening test. False positive and false negative results occur. Negative results do not preclude abnormalities, thus clinical correlation is required. This specimen was evaluated by the ThinPrep Imaging System along with an additional manual rescreening by a sole dyer and/or pathologist. 11/12/2024 9:40 AM CDT [facility] Embedded Images 9:40 AM CDT [facility] Pathology/Cytolo gy ENTIRE VAGINA / Unknown Collection / Unknown 11/10/2024 10:48 AM CDT 11/10/2024 10:49 AM CDT Heath Hernandez MD LAB - PATHOLOGY/CYTOLOGY ORDERAB LES Final Result Performing Organization Address City/State/[facility] Co de Phone Number [facility] [address] [phone] * BASIC METABOLIC PANEL (CALCIUM TOTAL) (06/21/2024 9:04 AM HEALTH UNIT SUPERVISOR) Glucose 91 70 - 99 mg/dL [facility] ACCOUNT BILL BUN 19 6 - 24 mg/dL [facility] ACCOUNT BILL Creatinine 0.86 0.57 - 1.00 mg/dL [facility] ACCOUNT BILL eGFR by CKD-EPI 80 >59 mL/min/1.7 3 [facility] ACCOUNT BILL BUN/Creatinine Ratio 22 9 - 23 [facility] ACCOUNT BILL Sodium 141 134 - 144 mmol/L [facility] ACCOUNT BILL Potassium 4.9 3.5 - 5.2 mmol/L [facility] ACCOUNT BILL Chloride 104 96 - 106 mmol/L [facility] ACCOUNT BILL CO2 24 20 - 29 mmol/L [facility] ACCOUNT BILL Calcium 9.7 8.7 - 10.2 mg/dL [facility] ACCOUNT BILL Blood BLOOD SPECIMEN / Unknown 06/21/2024 9:04 AM HEALTH UNIT SUPERVISOR 06/21/2024 Narrative [facility] ACCOUNT BILL - 06/22/2024 9:35 AM HEALTH UNIT SUPERVISOR Performed at: - [facility] [address] [id number] Pants Maker: Frankie Henson PhD, Phone: [phone] us Hansa Cheng MD LAB - CHEMISTRY ORDERABL ES Final Result [facility] ACCOUNT BILL [address] [place] [address] * Mammo Bilat Screening [facility] (01/01/2024 11:29 AM CDT) Anatomical Region Laterality Modality Breast Bilateral Mammography 01/01/2024 12:4 5 PM CDT Impressions 01/01/2024 12:50 PM CDT : Annual screening mammography is recommended. OVERALL FINAL ASSESSMENT: BI-RADS Category 1: Negative. > Interpreting Provider: Dashawn Sim MD on 01/01/2024 12:50 PM Narrative 01/01/2024 12:50 PM CDT EXAMINATION: BILATERAL DIGITAL SCREENING MAMMOGRAM AND BILATERAL BREAST TOMOSYNTHESIS HISTORY: Screening. COMPARISON: Serial examinations dating back to March 11, 2019. TECHNIQUE: BILATERAL digital breast tomosynthesis (DBT) and synthetic 2D digital mammogram images were obtained (bilateral craniocaudal and mediolateral oblique projections) including computer aided detection (CAD.) BREAST PARENCHYMAL COMPOSITION:Category B: There are scattered areas of fibroglandular density. MAMMOGRAM FINDINGS: There is no suspicious finding in either breast. us Abelino Marmolejo MD MAMMO ORDERABLES Final Result * HPV DETECTION HIGH RISK CYNDY (11/12/2023 9:30 AM CDT) High Risk Human Papilloma Result Not detected Not detected 11/16/2023 7:35 AM CDT [facility] High Risk Human Papilloma Interp 11/16/2023 7:35 AM CDT [facility] Comment:High Risk Human Isiah lloma Virus was Not Detected. Pathology/Cytolo gy MISCELLANEOUS SAMPLES / Unknown 11/12/2023 9:30 AM CDT 11/13/2023 12:32 PM CDT Narrative [facility] - 11/16/2023 7:35 AM CDT Nucleic acid isolated from the specimen was analyzed with a nucleic acid amplification test (FDA approved Gen-Probe HPV Assay) to detect high risk human papilloma virus (Types: 16, 18, 31, 33, 35, 39, 45, 51, 52, 56, 58, 59, 66, and 68). The reference range is Not Detected. Comment: These test results should not be used as the sole basis for clinical assessment and treatment of patients. These results should always be correlated with other available data (cytology, histology, and clinical information). Heath Hernandez MD LAB - MICROBIOLOGY ORDERABLES Fi nal Result [facility] [address] [phone] * ENDOSCOPY, COLON, DIAGNOSTIC (08/08/2023 10:23 AM CDT) Report Endoscopy POC _ Patient Name: Chao Page Procedure Date: 08/08/2023 10:23 AM Date of : 1970 Admit Type: Outpatient Age: 53 Gender: Female Attending MD: Nas Asencio MD, [id number] _ Procedure: Colonoscopy Indications: Last colonoscopy: 2016, Hematochezia Providers: Nas Asencio MD (Doctor) Referring MD: Abelino Marmolejo MD (Referring MD) Medicines: Monitored Anesthesia Care Complications: No immediate complications. _ Estimated Blood Loss: Estimated blood loss: none. Procedure: Pre-Anesthesia Assessment: - Prior to the procedure, a History and Physical was performed, and patient medications and allergies were reviewed. The patient is competent. The risks and benefits of the procedure and the sedation options and risks were discussed with the patient. All questions were answered and informed consent was obtained. Patient identification and proposed procedure were verified by the physician, the nurse and the hammerer helper in the procedure room. Mental Status Examination: alert and oriented. Airway Examination: normal oropharyngeal airway and neck mobility. Respiratory Examination: clear to auscultation. CV Examination: normal. Prophylactic Antibiotics: The patient does not require prophylactic antibiotics. Prior Anticoagulants: The patient has taken no anticoagulant or antiplatelet agents. ASA Grade Assessment: II - A patient with mild systemic disease. After reviewing the risks and benefits, the patient was deemed in satisfactory condition to undergo the procedure. The anesthesia plan was to use monitored anesthesia care (MAC). Immediately prior to administration of medications, the patient was re-assessed for adequacy to receive sedatives. The heart rate, respiratory rate, oxygen saturations, blood pressure, adequacy of pulmonary ventilation, and response to care were monitored throughout the procedure. The physical status of the patient was re-assessed after the procedure. After I obtained informed consent, the scope was passed under direct vision. Throughout the procedure, the patient's blood pressure, pulse, and oxygen saturations were monitored continuously. The Colonoscope was introduced through the anus and advanced to the cecum, identified by appendiceal orifice and ileocecal valve. The colonoscopy was performed without difficulty. The patient tolerated the procedure well. The quality of the bowel preparation was excellent. The ileocecal valve, appendiceal orifice, and rectum were photographed. Findings: The digital rectal exam was normal. Pertinent negatives include no palpable rectal lesions. A 4 mm polyp was found in the transverse colon. The polyp was sessile. The polyp was removed with a cold biopsy forceps. Resection and retrieval were complete. The mucosa vascular pattern in the distal rectum was locally increased. Fulguration to ablate the lesion to prevent bleeding by argon plasma at 0.4 liters/minute and 20 motta was successful. The sigmoid colon, descending colon, ascending colon, cecum, appendiceal orifice and ileocecal valve appeared normal. _ Impression: - One 4 mm polyp in the transverse colon, removed with a cold biopsy forceps. Resected and retrieved. - Increased mucosa vascular pattern in the distal rectum. Treated with argon plasma coagulation (APC). - The sigmoid colon, descending colon, ascending colon, cecum, ileocecal valve and appendiceal orifice are normal. Recommendation: - Await pathology results. - Repeat colonoscopy in 5 years for surveillance if polyp is adenomatous. - Return to primary care physician as previously scheduled. - Resume previous diet. - Continue present medications. - Patient has a contact number available for emergencies. The signs and symptoms of potential delayed complications were discussed with the patient. Return to normal activities tomorrow. Written discharge instructions were provided to the patient. Procedure Code(s): --- Professional --- 95356, 59, Colonoscopy, flexible; with control of bleeding, any method 32795, Colonoscopy, flexible; with biopsy, single or multiple --- Technical --- 77932, 59, Colonoscopy, flexible; with control of bleeding, any method 49421, Colonoscopy, flexible; with biopsy, single or multiple Diagnosis Code(s): --- Professional --- D12.3, Benign neoplasm of transverse colon (hepatic flexure or splenic flexure) K92.1, Melena (includes Hematochezia) --- Technical --- D12.3, Benign neoplasm of transverse colon (hepatic flexure or splenic flexure) K92.1, Melena (includes Hematochezia) CPT copyright 2020 [employer]. All rights reserved. The codes documented in this report are preliminary and upon cage/vault supervisor review may be revised to meet current compliance requirements. Dr. Nas Asencio MD Nas Asencio MD 08/08/2023 1:13:27 PM This report has been signed electronically. Number of Addenda: 0 Note Initiated On: 08/08/2023 10:23 AM [facility] 08/08/2023 10:2 3 AM CDT us Alyssa Toure LONGITUDINAL FLOAT OPERATOR-STRIP MILL OPERATOR GI PROCEDURE ORDERABLE S Edited Result - Final [facility] [place] [address] * HEPATITIS C ANTIBODY (01/09/2023 10:14 AM CDT) Hepatitis C Antibody Non Reactive Non Reactive [facility] INSURANCE BILL Comment: HCV antibody alone does not differentiate between previously resolved infection and active infection. Equivocal and Reactive HCV antibody results should be followed up with an HCV RNA test to support the diagnosis of active HCV infection. Blood BLOOD SPECIMEN / Unknown 01/09/2023 10:14 AM CDT 01/09/2023 Narrative Resulting Agency Comment Lab Testing performed at: [facility] [address] [id number] us Yuan Garcia MD LAB - CHEMISTRY ORDERABLES Final Result [facility] INSURANCE BILL [address] [place] [address] * LIPID PROFILE (LIPID PANEL) (02/28/2011 1:28 PM CDT) Cholesterol 163 100 - 199 mg/dL [facility] ACCOUNT BILL Triglycerides 77 0 - 149 mg/dL [facility] ACCOUNT BILL HDL Cholesterol 79 >39 mg/dL [facility] ACCOUNT BILL Comment: According to ATP-III Guidelines, HDL-C >59 mg/dL is considered a negative risk factor for CHD. VLDL Calculated 15 5 - 40 mg/dL [facility] ACCOUNT BILL LDL Calculated 69 0 - 99 mg/dL [facility] ACCOUNT BILL BLOOD SPECIMEN / Unknown 02/28/2011 1:28 PM CDT 02/28/2011 8:47 PM CDT Narrative Resulting Agency Comment [facility] [address] [facility] [id number] us Reji Hernández MD LAB - CHEMISTRY ORDERABLE S Final Result [facility] ACCOUNT BILL [address] [place] [address] from Last 3 Months or Most Recently Relevant to Health Maintenance [facility] Advance Directives * Full Code (Latest Code Status on File) Date Activated Date Inactivated Comments 11/03/2020 3:41 PM 11/06/2020 1:04 PM * Full Code Date Activated Date Inactivated Comments 11/03/2020 11:14 AM 11/03/2020 3:41 PM Care Teams Hotel Operations Manager Relationship Specialty [place] [address] [facility] [address] [place] [address] PCP - General Internal Medicine 01/17/16 [place] [address] [facility] [address] [place] [phone] Internal Medicine 01/17/16 [place] [address] [facility] [address] [place], [place] [phone] Endocrinology 11/18/14 Cirilo Guzman MD [address] [facility] [address] [place] [address] Rheumatology 11/18/14 Vicki Mackay MD [address] [place] [address] Surgery 02/13/18
--- OUTSIDE RECORDS SUMMARY | 2024-12-14 04:15 | XMS_ITS | Referral Summary ---
Author Organization [facility] Address [address] [place] [address] Care Team Providers Care Internet E Commerce Specialist Name Role Phone Abelino Marmolejo MD Primary Care Provider [phone] Allergies No known active allergies Medications albuterol 2.5 mg /3 mL (0.083 %) nebulizer solution INHALE 3 MILLILITER (2.5MG) BY NEBULIZATION ROUTE EVERY 4-6 HOURS NEEDED 3 Active ALBUTEROL, BULK, MISC 0 Active cyclobenzaprine (FLEXERIL) 10 mg tablet 3 Active infliximab (REMICADE IV) 6 Active meloxicam (MOBIC) 15 mg tablet Take 1 tablet (15 mg total) by mouth daily 3 Active metFORMIN (GLUCOPHAGE) 500 mg tablet TAKE 1 TABLET BY MOUTH TWICE A DAY WITH BREAKFAST AND DINNER 3 Active omeprazole (PriLOSEC) 40 mg capsule Take by mouth daily before breakfast 3 Active meloxicam 30 mg/mL suspension 6 Active traMADoL (ULTRAM) 50 mg tablet 3 Active Active Problems Problem Noted Date Diagnosed Date Osteoarthritis of patellofemoral joints of both knees 06/25/2024 Weakness of both hips 06/25/2024 Ankylosing spondylitis 10/06/2022 3 Overview (10/06/2022): Dx made by Dr. Hernández on 04/1998 based on inflammatory back pain; sacroiliitis; elevated CRP. Treated with sulfasalazine and Vioxx. Added Enbrel (very briefly) 1999. Remicade started 10/2005. Excellent response. Elevated C peptide level 04/24/2022 023 Pain in limb 04/24/2022 10/06/2022 Skin lesion of right leg 04/24/2022 023 COVID-19 11/10/2021 10/06/2022 Allergic rhinitis due to animal hair and dander 05/12/2021 10/06/2022 Carpal tunnel syndrome of right wrist 05/12/2021 10/06/2022 Low back pain 05/12/2021 10/06/2022 Pain in joint involving pelvic region and thigh 05/12/2021 10/06/2022 Pain in thoracic spine 05/12/2021 3 Rectal bleeding 05/12/2021 10/06/2022 Thrombocytosis 05/12/2021 10/06/2022 Urinary urgency 05/12/2021 10/06/2022 GERD (gastroesophageal reflux disease) 10/06/2022 Hematochezia 02/08/2021 10/06/2022 Essential hypertension 12/14/2020 3 Acute pyelonephritis 11/03/2020 10/06/2022 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 06/10/2018 10/06/2022 Right sided abdominal pain 07/24/201810/06 Incisional hernia 05/01/2017 10/06/2022 Dysuria 02/26/2017 10/06/2022 Encounter for postoperative care 02/26/2017 10/06/2022 Bladder pain 02/26/2017 10/06/2022 Abnormal uterine bleeding 12/27/20162022 Menorrhagia 12/26/2016 10/06/2022 Gastroesophageal reflux disease 08/10/2016 10/06/2022 Hypercortisolism 08/10/2016 10/06/2022 Inguinal pain 08/09/2016 10/06/2022 Left inguinal hernia 01/20/2016 10/06/2022 Vitamin D deficiency 03/04/2015 10/06/2022 Dysfunctional uterine bleeding 01/13/2015 0 10/06/2022 Hypotestosteronism 11/18/2014 10/06/2022 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 05/23/1910/06/2022 Overview (10/06/2022): Adrenalectomy [facility] 2013 following episodes of hypertension Secondary adrenal insufficiency 12/19/2013 10/06/2022 Overview (10/06/2022): p-op adrenal insuff Disorder of adrenal gland 06/27/20132022 Allergic rhinitis due to pollen 02/08/2004 10/06/2022 Allergic rhinitis 01/07/2004 10/06/2022 Asthma 01/07/2004 10/06/2022 Social History Tobacco Use Types Packs/Day Years Used Date Smoking Tobacco: Former Cigarettes 1 17 0 02/06/1988 - 02/22/2005 Smokeless Tobacco: Never Tobacco Cessation:Counseling Given: Not Answered Comments Unknown Sex and Gender Information Value Date Recorded Sex Assigned at Not on file Legal Sex Female 5:05 AM ICT TEACHER Gender Identity Not on file Sexual Orientation Not on file Last Filed Vital Signs Vital Sign Reading Time Taken Comments Blood Pressure 105/66 08/10/2017 7:58 AM CDT Pulse 84 08/09/2017 2:28 PM CDT Temperature 36.8 C (98.2 F) 11/27/2014 7:42 AM CDT Respiratory Rate - - Oxygen Saturation 98% 08/10/2017 8:08 AM CDT Inhaled Oxygen Concentration - - Weight 73 kg (161 lb) 06/25/2024 1:04 PM ICT TEACHER Height 160 cm (5' 3) 06/25/2024 1:04 PM ICT TEACHER Body Mass Index 28.52 06/25/2024 1:04 PM ICT TEACHER Plan of Treatment Not on file Insurance [facility] [employer] [facility] [employer] Care Teams Internet E Commerce Specialist Relationship Specialty [place] [id number] [address] PCP - General 10/17/16
--- OUTSIDE RECORDS SUMMARY | 2024-12-14 04:15 | XMS_ITS | Clinical Summary ---
Author Organization [facility] Address [address] [place] [id number] Care Team Providers Care Net Lead Developer Name Role Phone Unavailable Primary Care Provider Unavailabl e Encounters Date Type Department Care Team Description 12/03/2024 External Device Data [facility] ABSTRACTION Provider, Abstract 12/02/2024 External Device Data [facility] ABSTRACTION Provider, Abstract 11/04/2024 1:15 PM CDT Ancillary Procedure [facility] [address] [address] Mariah Moffett, DPM Primary osteoarthritis, right ankle and foot 11/04/2024 12:30 PM CDT Ancillary Procedure [facility] [address] [address] Mariah Moffett, DPM Primary osteoarthritis, left ankle and foot 11/04/2024 11:40 AM CDT Ancillary Procedure [facility] [address] [address] Mansoor Osuna MD Multiple joint pain 11/04/2024 External Device Data [facility] ABSTRACTION Provider, Abstract 10/09/2024 10:30 AM CDT Ancillary Procedure [facility] [address] [address] Stephanie Núñez NP Low back pain; Knee pain 10/09/2024 External Device Data [facility] ABSTRACTION Provider, Abstract 10/07/2024 External Device Data [facility] ABSTRACTION Provider, Abstract 09/23/2024 External Device Data [facility] ABSTRACTION Provider, Abstract from Last 3 Months Social History Tobacco Use Types Packs/Day Years Used Date Smoking Tobacco: Never Assessed Comments Unknown Sex and Gender Information Value Date Recorded Sex Assigned at Not on file Legal Sex Female 2:52 AM PATIENT SERVICE SPECIALIST Gender Identity Not on file Sexual Orientation Not on file Plan of Treatment Health Maintenance Due Date Last Done Comments Pre-Diabetes and Diabetes Screening 1970 DTAP/TDAP/TD VACCINES (1 - Tdap) 1989 HEPATITIS B VACCINES (1 of 3 - 19+ 3-dose series) 1989 FIT-DNA Q 3 years 2015 FIT/FOBT Q 1 year 2015 Flex Sig/CT Colonography Q 5 years 2015 ZOSTER VACCINE (1 of 2) 2020 COVID-19 Vaccine (2 - 2023- season) 2024 INFLUENZA VACCINE (#1) 2024 BREAST CANCER SCREENING 12/31/2024 01/01/20 24, 01/01/2024, 12/26/2022 COLORECTAL SCREENING 08/07/2033 08/08/2023 Colorectal Cancer Screening 08/07/2033 Procedures Procedure Name Priority Date/Time Associated Diagnosis Comments MRI ANKLE WO CONTRAST RIGHT Routine 11/04/2024 1:38 PM CDT Primary osteoarthritis, right ankle and foot MRI ANKLE WO CONTRAST LEFT Routine 11/04/2024 1:20 PM CDT Primary osteoarthritis, left ankle and foot XR HAND 2 VW BILAT Routine 11/04/2024 12 :12 PM CDT Multiple joint pain XR SACROILIAC JOINTS 3+ VW Routine 11/04/2024 12:12 PM CDT Multiple joint pain XR KNEE 1 OR 2 VW RIGHT Routine 10/09/2024 10:59 AM CDT Knee pain XR KNEE 1 OR 2 VW LEFT Routine 10/09/2024 10:59 AM CDT Knee pain XR LUMBAR SPINE 2 OR 3 VW Routine 10/09/2024 10:59 AM CDT Low back pain from Last 3 Months Results * MRI ANKLE WO CONTRAST RIGHT (11/04/2024 1:38 PM CDT) Anatomical Region Laterality Modality Ankle / Foot Magnetic Resonan ce 11/04/2024 1:38 PM CDT Impressions 11/04/2024 3:23 PM CDT IMPRESSION: 1. Severe osteoarthritis of the second through fourth tarsometatarsal joints. 2. At least mild to moderate osteoarthritis of the naviculocuneiform articulations. 3. Mild osteoarthrosis of the ankle joint with osteochondral defects of the medial and lateral talar dome with overlying high-grade articular cartilage loss. Narrative 11/04/2024 3:23 PM CDT EXAM: MRI ANKLE WO CONTRAST RIGHT DATE: 11/04/2024 HISTORY: Primary osteoarthritis, right ankle and foot COMPARISON: None. TECHNIQUE: Multiplanar multisequence. FINDINGS: The anterior talofibular ligament is chronically torn and there is heterotopic ossification. The anterior inferior tibiofibular ligament is intact. The posterior talofibular ligament is intact. The calcaneofibular ligament appears intact. The peroneal tendons are intact. The extensor tendons are intact. The flexor tendons are intact. The signal in the sinus tarsi and tarsal tunnel is normal. The Achilles tendon is intact. There is extensive bone marrow edema in the cuboid and severe osteoarthritis of the fourth, third, second, tarsometatarsal joints and intermetatarsal joints at the cuboids. There is osteoarthritis at the naviculocuneiform articulation. There is a osteochondral lesion at the medial talar dome measuring 14 x 9 mm. No loose fragment. There is additional osteochondral lesion at the lateral talar dome measuring only a few millimeters. There is extensive low grade loss of articular cartilage at the tibiotalar joint with the exception of the medial talar dome where there is full-thickness loss of articular cartilage. There is a subtalar joint effusion. The plantar fascia is intact. Intrinsic muscles of the foot have normal signal. Procedure Note Jens Davis MD - 11/04/2024 EXAM: MRI ANKLE WO CONTRAST RIGHT DATE: 11/04/2024 HISTORY: Primary osteoarthritis, right ankle and foot COMPARISON: None. TECHNIQUE: Multiplanar multisequence. FINDINGS: The anterior talofibular ligament is chronically torn and there is heterotopic ossification. The anterior inferior tibiofibular ligament is intact. The posterior talofibular ligament is intact. The calcaneofibular ligament appears intact. The peroneal tendons are intact. The extensor tendons are intact. The flexor tendons are intact. The signal in the sinus tarsi and tarsal tunnel is normal. The Achilles tendon is intact. There is extensive bone marrow edema in the cuboid and severe osteoarthritis of the fourth, third, second, tarsometatarsal joints and intermetatarsal joints at the cuboids. There is osteoarthritis at the naviculocuneiform articulation. There is a osteochondral lesion at the medial talar dome measuring 14 x 9 mm. No loose fragment. There is additional osteochondral lesion at the lateral talar dome measuring only a few millimeters. There is extensive low grade loss of articular cartilage at the tibiotalar joint with the exception of the medial talar dome where there is full-thickness loss of articular cartilage. There is a subtalar joint effusion. The plantar fascia is intact. Intrinsic muscles of the foot have normal signal. IMPRESSION: 1. Severe osteoarthritis of the second through fourth tarsometatarsal joints. 2. At least mild to moderate osteoarthritis of the naviculocuneiform articulations. 3. Mild osteoarthrosis of the ankle joint with osteochondral defects of the medial and lateral talar dome with overlying high-grade articular cartilage loss. Mariah Moffett [facility] MR ORDERABLES Final Result * MRI ANKLE WO CONTRAST LEFT (11/04/2024 1:20 PM CDT) Anatomical Region Laterality Modality Ankle / Foot Magnetic Resonan ce 11/04/2024 1:20 PM CDT Impressions 11/04/2024 3:14 PM CDT IMPRESSION: 1. Osteoarthritis of the joints of the midfoot. 2. Extensive edema and the os trigonum and adjacent navicular. Correlate for hindfoot impingement syndrome. 3. Small osteochondral lesion at the medial talar dome that appears to be chronic. Narrative 11/04/2024 3:14 PM CDT EXAM: MRI ANKLE WO CONTRAST LEFT DATE: 11/04/2024 HISTORY: Primary osteoarthritis, left ankle and foot COMPARISON: None. TECHNIQUE: Multiplanar multisequence. FINDINGS: The anterior talofibular ligament is intact. The posterior talofibular ligament is intact. The calcaneofibular ligament is intact. The syndesmotic ligaments are intact. The deep and superficial deltoid ligament is intact. The Achilles tendon, peroneal tendons, flexor tendons, and extensor tendons are intact. There is severe osteoarthritis of the second, third, and fourth tarsometatarsal joints. There is moderate to severe osteoarthritis of the fourth tarsometatarsal joint. There is osteoarthritis of the naviculocuneiform articulation. There is osteoarthritis of the intermetatarsal joint at the cuboid and lateral cuneiform. There is severe osteoarthritis of the lateral cuneiform navicular articulation with subchondral cyst formation and osteophytes. There is a 5 mm osteochondral lesion at the medial talar dome that appears to be chronic. No loose fragment. The overlying articular cartilage is markedly thinned. There is edema with low signal on T1 at the os trigonum and syndesmosis with the talus. Signal in the sinus tarsi and tarsal tunnel is normal. The plantar fascia is intact. Intrinsic muscles of the foot have normal signal. No marrow signal abnormality to suggest a fracture or a marrow replacement process. Procedure Note Jens Davis MD - 11/04/2024 EXAM: MRI ANKLE WO CONTRAST LEFT DATE: 11/04/2024 HISTORY: Primary osteoarthritis, left ankle and foot COMPARISON: None. TECHNIQUE: Multiplanar multisequence. FINDINGS: The anterior talofibular ligament is intact. The posterior talofibular ligament is intact. The calcaneofibular ligament is intact. The syndesmotic ligaments are intact. The deep and superficial deltoid ligament is intact. The Achilles tendon, peroneal tendons, flexor tendons, and extensor tendons are intact. There is severe osteoarthritis of the second, third, and fourth tarsometatarsal joints. There is moderate to severe osteoarthritis of the fourth tarsometatarsal joint. There is osteoarthritis of the naviculocuneiform articulation. There is osteoarthritis of the intermetatarsal joint at the cuboid and lateral cuneiform. There is severe osteoarthritis of the lateral cuneiform navicular articulation with subchondral cyst formation and osteophytes. There is a 5 mm osteochondral lesion at the medial talar dome that appears to be chronic. No loose fragment. The overlying articular cartilage is markedly thinned. There is edema with low signal on T1 at the os trigonum and syndesmosis with the talus. Signal in the sinus tarsi and tarsal tunnel is normal. The plantar fascia is intact. Intrinsic muscles of the foot have normal signal. No marrow signal abnormality to suggest a fracture or a marrow replacement process. IMPRESSION: 1. Osteoarthritis of the joints of the midfoot. 2. Extensive edema and the os trigonum and adjacent navicular. Correlate for hindfoot impingement syndrome. 3. Small osteochondral lesion at the medial talar dome that appears to be chronic. Mariah Canalesga DPM MR ORDERABLES Final Result * XR SACROILIAC JOINTS 3+ VW (11/04/2024 12:12 PM CDT) Anatomical Region Laterality Modality Pelvis Computed Radiogr aphy 11/04/2024 12:1 2 PM CDT Impressions 11/04/2024 12:39 PM CDT IMPRESSION: Normal SI joints. Narrative 11/04/2024 12:39 PM CDT SI joints HISTORY: Multiple joint pain AP and bilateral oblique projections of the SI joints demonstrate patent SI joints without abnormal sclerosis or erosions. Procedure Note Sophia Ray MD - 11/04/2024 SI joints HISTORY: Multiple joint pain AP and bilateral oblique projections of the SI joints demonstrate patent SI joints without abnormal sclerosis or erosions. IMPRESSION: Normal SI joints. Mansoor Osuna MD DIAGNOSTIC IMAGING ORDERABLES Final Result * XR HAND 2 VW BILAT (11/04/2024 12:12 PM CDT) Anatomical Region Laterality Modality Wrist / Hand Computed Radiogr aphy 11/04/2024 12:1 2 PM CDT Impressions 11/04/2024 1:16 PM CDT IMPRESSION: Severe bilateral osteoarthritis of the carpal metacarpal joints of the thumbs. No joint erosions. Narrative 11/04/2024 1:16 PM CDT Examination: X-ray hand two view bilateral HISTORY: Pain in multiple joints FINDINGS: There is osteoarthritis of the bilateral carpometacarpal joints, severe. No joint erosions, no acute fracture. No suspicious osseous lesions. Soft tissues are normal. Procedure Note Jens Davis MD - 11/04/2024 Examination: X-ray hand two view bilateral HISTORY: Pain in multiple joints FINDINGS: There is osteoarthritis of the bilateral carpometacarpal joints, severe. No joint erosions, no acute fracture. No suspicious osseous lesions. Soft tissues are normal. IMPRESSION: Severe bilateral osteoarthritis of the carpal metacarpal joints of the thumbs. No joint erosions. us Mansoor Osuna MD DIAGNOSTIC IMAGING ORDERABLES Final Result * XR KNEE 1 OR 2 VW RIGHT (10/09/2024 10:59 AM CDT) Anatomical Region Laterality Modality Lower Extremity Computed Radiogr aphy 10/09/2024 11:0 0 AM CDT Impressions 10/09/2024 11:04 AM CDT IMPRESSION: No acute abnormality in the bilateral knees. Narrative 10/09/2024 11:04 AM CDT EXAM: XR KNEE 1 OR 2 VW LEFT, XR KNEE 1 OR 2 VW RIGHT STUDY DATE: 10/09/2024 10:59 AM CLINICAL INDICATION: Knee pain COMPARISON: None PROCEDURE: AP and lateral views of the bilateral knees were obtained. FINDINGS: Right knee: No acute fracture or dislocation. The osseous mineralization is normal. No bony erosions. No degenerative changes. No joint effusion. Left knee: No acute fracture or dislocation. The osseous mineralization is normal. No bony erosions. No degenerative changes. No joint effusion. Procedure Note Roselyn Marroquin MD - 10/09/2024 EXAM: XR KNEE 1 OR 2 VW LEFT, XR KNEE 1 OR 2 VW RIGHT STUDY DATE: 10/09/2024 10:59 AM CLINICAL INDICATION: Knee pain COMPARISON: None PROCEDURE: AP and lateral views of the bilateral knees were obtained. FINDINGS: Right knee: No acute fracture or dislocation. The osseous mineralization is normal. No bony erosions. No degenerative changes. No joint effusion. Left knee: No acute fracture or dislocation. The osseous mineralization is normal. No bony erosions. No degenerative changes. No joint effusion. IMPRESSION: No acute abnormality in the bilateral knees. [facility] DIAGNOSTIC IMAGING ORDERABLES Fi nal Result * XR KNEE 1 OR 2 VW LEFT (10/09/2024 10:59 AM CDT) Anatomical Region Laterality Modality Lower Extremity Computed Radiogr aphy 10/09/2024 11:0 0 AM CDT Impressions 10/09/2024 11:04 AM CDT IMPRESSION: No acute abnormality in the bilateral knees. Narrative 10/09/2024 11:04 AM CDT EXAM: XR KNEE 1 OR 2 VW LEFT, XR KNEE 1 OR 2 VW RIGHT STUDY DATE: 10/09/2024 10:59 AM CLINICAL INDICATION: Knee pain COMPARISON: None PROCEDURE: AP and lateral views of the bilateral knees were obtained. FINDINGS: Right knee: No acute fracture or dislocation. The osseous mineralization is normal. No bony erosions. No degenerative changes. No joint effusion. Left knee: No acute fracture or dislocation. The osseous mineralization is normal. No bony erosions. No degenerative changes. No joint effusion. Procedure Note Roselyn Marroquin MD - 10/09/2024 EXAM: XR KNEE 1 OR 2 VW LEFT, XR KNEE 1 OR 2 VW RIGHT STUDY DATE: 10/09/2024 10:59 AM CLINICAL INDICATION: Knee pain COMPARISON: None PROCEDURE: AP and lateral views of the bilateral knees were obtained. FINDINGS: Right knee: No acute fracture or dislocation. The osseous mineralization is normal. No bony erosions. No degenerative changes. No joint effusion. Left knee: No acute fracture or dislocation. The osseous mineralization is normal. No bony erosions. No degenerative changes. No joint effusion. IMPRESSION: No acute abnormality in the bilateral knees. [facility] DIAGNOSTIC IMAGING ORDERABLES Fi nal Result * XR LUMBAR SPINE 2 OR 3 VW (10/09/2024 10:59 AM CDT) Anatomical Region Laterality Modality Spine Computed Radiogr aphy 10/09/2024 11:0 0 AM CDT Impressions 10/09/2024 11:05 AM CDT IMPRESSION: Multilevel degenerative changes of the lumbar spine, progressed since the prior study. Narrative 10/09/2024 11:05 AM CDT EXAM: XR LUMBAR SPINE 2 OR 3 VW STUDY DATE: 10/09/2024 10:59 AM CLINICAL INDICATION: Low back pain COMPARISON: Lumbar spine radiographs dated 05/19/2020 PROCEDURE: AP and lateral views of the lumbar spine with lateral coned-down view of lumbosacral junction are obtained. FINDINGS: The lumbar vertebral bodies demonstrate satisfactory height. No acute fracture. The osseous mineralization is normal. There is right curvature of the lumbar spine. There is mild retrolisthesis of L3 on L4. There are multilevel degenerative changes of the lumbar spine with multilevel disc space narrowing, vertebral body osteophytes and facet hypertrophic changes. There is subchondral sclerosis at L3-L4. Procedure Note Roselyn Marroquin MD - 10/09/2024 EXAM: XR LUMBAR SPINE 2 OR 3 VW STUDY DATE: 10/09/2024 10:59 AM CLINICAL INDICATION: Low back pain COMPARISON: Lumbar spine radiographs dated 05/19/2020 PROCEDURE: AP and lateral views of the lumbar spine with lateral coned-down view of lumbosacral junction are obtained. FINDINGS: The lumbar vertebral bodies demonstrate satisfactory height. No acute fracture. The osseous mineralization is normal. There is right curvature of the lumbar spine. There is mild retrolisthesis of L3 on L4. There are multilevel degenerative changes of the lumbar spine with multilevel disc space narrowing, vertebral body osteophytes and facet hypertrophic changes. There is subchondral sclerosis at L3-L4. IMPRESSION: Multilevel degenerative changes of the lumbar spine, progressed since the prior study. Stephanie Núñez NP DIAGNOSTIC IMAGING ORDERABLES Fi nal Result from Last 3 Months Insurance [facility] [employer] ACCESS
--- OUTSIDE RECORDS SUMMARY | 2024-12-14 04:15 | XMS_ITS | Encounter Summary ---
Author Organization [facility] Health Address [address] [place] [address] Care Team Providers Care [facility] Name Role Phone Reji Hernández MD Primary Care Provider [phone] Abelino Marmolejo MD Primary Care Provider [phone] Abelino Marmolejo MD Primary Care Provider [phone] Reji Hernández MD Unavailable [phone] Abelino Marmolejo MD Unavailable [phone] Ofe Savage MD Unavailable [phone] Vicki Mackay MD Unavailable Hansa Cheng MD Unavailable Tereso Gardner MD Unavailable Cirilo Guzman MD Unavailable [phone] Marquise Peres MD Unavailable [phone] Vicki Mackay MD Unavailable [phone] Encounter Details Date Type Department Care Team (Late st Contact Info) Description 05/08/2013 [facility] [address] [address] Social History Tobacco Use Types Packs/Day Years Used Date Smoking Tobacco: Former Cigarettes Q uit: 04/28/2003 Alcohol Use Standard Drinks/Week Comments No 0 (1 standard drink = 0.6 oz pur e alcohol) Comments No Sex and Gender Information Value Date Recorded Sex Assigned at Not on file Legal Sex Female 6:59 AM [employer] Gender Identity Not on file Sexual Orientation Not on file documented as of this encounter Plan of Treatment Upcoming Encounters Date Type Department Care Team (Late st Contact Info) Description 01/08/2025 11:20 AM CDT Office Visit [facility] - Endocrinology [id number] [place] [address], [address] [place] [phone] [place] [address] [facility] [address] [place] [address] 02/10/2025 10:45 AM CDT Office [place] [address] [address] [facility] [address] [place] [address] [place] [address] [address] [facility] [address] [place] [address] 11/16/2025 10:30 AM CDT Office Visit [facility] - PROGRAM ELIGIBILITY SPECIALIST [address] [facility] [address] [place] [phone] Heath Hernandez MD [address] [facility] [address] [place] [address] documented as of this encounter Visit Diagnoses Not on filedocumented in this encounter Care Teams [facility] Specialists Relationship Specialty Start Date End Date Reji Hernández MD [address] [place] [address] PCP - General 04/30/08 01/10/16 [place] [address] [facility] [address] [place] [phone] PCP - General Internal Medicine 01/11/16 01/16/16 [place] [address] [facility] [address] [place] [phone] PCP - General Internal Medicine 01/17/16 Reji Hernández MD [address] [place] [address] 01/11/16 01/16/16 [place] [address] [facility] [address] [place] [address] Internal Medicine 01/17/16 [place] [address] [address] [facility] [address] [place] [address] Nephrology 05/31/13 11/17/14 Vicki Mackay MD [address] [place] [address] Surgery 07/10/13 11/17/14 [place] [address] [address] [place] [address] Endocrinology 11/18/14 [place] [address] [address] [place] [address] Obstetrics and Gynecology 11/18/14 Cirilo Guzman MD [address] [facility] [address] [place] [address] Rheumatology 11/18/14 Marquise Peres MD [address] [place] [address] Obstetrics and Gynecology 04/11/1708/19 Vicki Mackay MD [address] [place] [address] Surgery 02/13/18 documented as of this encounter
--- OUTSIDE RECORDS SUMMARY | 2024-12-14 04:15 | XMS_ITS | Data Portability ---
Author Organization [facility] Address [address] [place] [address] Assessment Encounter Date Assessment Date Assessment LastModified by Organization Details LastModified Time 12/15/2014 12/15/2014 On review of lab s leah Sen specialist I cant decipher the meaning of having low test dheAS AND 17 OH PREGNENOLONE--WILL OBTAIN REFERRAL With rep endo at [facility] program. Advised to use Aleve with menses / pt is willing to try OCP's for the tx of dysmenorrhea but agrees ot see Dr Sandhu( REP/ ENDO spec at [facility]. [email or web address] Not available 12/15/2014 18:22:41 07/17/2016 07/17/2016 c/o se adolfo dysmenorhea treatwed erffecctivel with Ibuprofen 1200 mg, S/P left inguinal herniorrhaphy 05/03/16 has developed seroma at mesh site. A Ct revvealed a small cyst in rioght ovary and lympohatic node enlargement [email or web address] Not available 07/17/2016 12:17:58 08/16/2016 08/16/2016 in for discussio n of results of US done in [facility]. 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 Not hurtingas bad as before.. Opting to cont on NUvaring and iv it a chance while using Ibuprofen(s not used Tramadol yet). DIscussed option of MInipilll. Sonohysterography [facility] ordered pt agrees [email or web address] Not available 08/16/2016 18:44:50 09/19/2016 09/19/2016 IMP BTB while on Nuvaring continuous Tx-- Pt finding acceptable to manage this BTb with interrupted Nuvaring use (3 weeks on - one week off)--to allow for quicker thinning and stabilization of the endometrial lining. . Sampled 3 rings Plans to remove very small submucosal fibroid in her arcuate uterus is held off at this time hoping that hormonal management may correcct patiewnts main prob with dysmenorrhagia [email or web address] Not available 09/19/2016 18:34:47 10/13/2016 10/13/2016 BTB while on Ramicade and Nuvaring ---bleeding since 06/2016( had test with her health safety specialist getting hgb of 12.9 6 weeks ago). Will screen PT ptt von willebrand's facctor activity / recommend to remove Nuvaring temporarily and restart after menses. Pt to call back for results [email or web address] Not available 10/13/2016 17:36:25 Plan of Treatment Reminders Order Date Submit Date Provider Last Modified By Organization Details Last Modified Time Details Appointments None record ed. Lab CBC w/ auto diff 2016 017 [facility] (Lab), [address] [place], [address], 7 19:37:04 PT/PTT , plasma 2016 017 [facility] (Lab), [address] [place], [address], 7 20:03:56 von willeb rand factor (vWF) activi ty, plasma 2016 017 [facility] (Lab), [address] [place], [address], 7 14:24:39 Referral infert ility reprod uctive endocr inolog y referr al - On review of labs [facility] Sen specia list I cant deciph er the meanin g of having low test dheAS AND 17 OH PREGNE NOLONE --WILL OBTAIN REFERR AL With rep endo at [facility] progra m 2014 015 [email or web address] Adair Sandhu MD, [address], [place], [address], 5 10:59:13 Procedures None record ed. Surgeries None record ed. Imaging US, saline infuse d uterus 2016 017 [facility], [address], [place], [address], 7 09:59:07 US, pelvis , comple te - CY with small right ovaria n cyst 1.7 cms 2016 017 [facility], [address], [address], [place], [address], 7 15:37:39 Medication Orders ibupro fen 800 mg tablet 2016 017 [id number], [address] [place], [address], 7 12:13:57 Ultram 50 mg tablet 2016 017 [email or web address] [id number], [address] [place], [address], 7 12:14:01 Patient TargetsNo targets recorded. Patient Instructions Encounter Date Encounter Id Patient Instructions Last Modified By Organization Details Last Modified Time 12/15/2014 [id number] painful menstrua l cramps: care instructions [email or web address] Not available 12/15/2014 18:23:26 07/17/2016 [id number] painful menstrua l cramps: care instructions [email or web address] Not available 07/17/2016 12:14:01 08/16/2016 [id number] painful menstrua l cramps: care instructions [email or web address] Not available 08/16/2016 18:16:34 sonohysterogram fact sheet [email or web address] Not available 08/17/2016 16:12:38 sonohysterogram: about this test [email or web address] Not available 08/16/2016 18:16:34 10/13/2016 [id number] von willebrand disease education [email or web address] Not available 10/18/2016 10:57:35 von willebrand fact(or) sheet Not available 10/18/2016 10:57:35 Reason for Referral Infertility Reproductive End ocrinology Referral for Adrenal [place]'s syndrome On review of labs leah Sen specialist I cant decipher the meaning of having low test dheAS AND 17 OH PREGNENOLONE--WILL OBTAIN REFERRAL With rep endo at [facility] program Referring Physician: Doug Gardner, SILVICULTURIST, Encounter Date: 12/15/2014 Results Created Date Observation Date Name Description Value Unit Range Abnormal Flag Note LastModifiedBy Organization Detail LastModifiedTime 10/14/19 17 10/13/2016 CBC w/ auto diff WBC 7.9 K/uL 3.4-10 .8 Not Available [facility] (Lab) [address] [place], [address], 10/13/2016 19:37:04 10/14/19 17 10/13/2016 CBC w/ auto diff red blood count 4.9 M/uL 4.2-5. 4 Not Available [facility] (Lab) [address] [place], [address], 10/13/2016 19:37:04 10/14/19 17 10/13/2016 CBC w/ auto diff hemoglobin 14.2 g/dL 11.5-1 5.5 Not Available [facility] (Lab) [address] [place], [address], 10/13/2016 19:37:04 10/14/19 17 10/13/2016 CBC w/ auto diff hematocrit 43.6 % 36.0-4 8.0 Not Available [facility] (Lab) [address] [place], [address], 10/13/2016 19:37:04 10/14/19 17 10/13/2016 CBC w/ auto diff MCV 88 fL 80-95 Not Available [facility] (Lab) [address] [place], [address], 10/13/2016 19:37:04 10/14/19 17 10/13/2016 CBC w/ auto diff MCH 29 pg 27-32 Not Available [facility] (Lab) [address], [place], [address], 10/13/2016 19:37:04 10/14/19 17 10/13/2016 CBC w/ auto diff MCHC 33 g/dL 32-36 Not Available [facility] (Lab) [address] [place], [address], 10/13/2016 19:37:04 10/14/19 17 10/13/2016 CBC w/ auto diff platelets 381 K/uL 155-37 9 high Not Available [facility] (Lab) [address] [facility], [place], [address], 10/13/2016 19:37:04 10/14/19 17 10/13/2016 CBC w/ auto diff RDW 13.5 % 11.5-1 4.5 Not Available [facility] (Lab) [address] [facility], [place], [address], 10/13/2016 19:37:04 10/14/19 17 10/13/2016 CBC w/ auto diff MPV 10.8 fL 8.9-12 .7 Not Available [facility] (Lab) [address] [place], [address], 10/13/2016 19:37:04 10/14/19 17 10/13/2016 CBC w/ auto diff neutrophils absolute 3.4 K/uL 1.4-7. 0 Not Available [facility] (Lab) [address] [place], [address], 10/13/2016 19:37:04 10/14/19 17 10/13/2016 CBC w/ auto diff lymphs (absolute) 3.4 K/uL 0.7-3. 1 high Not Available [facility] (Lab) [address] [place], [address], 10/13/2016 19:37:04 10/14/19 17 10/13/2016 CBC w/ auto diff monocytes (absolute) 0.6 K/uL 0.1-0. 9 Not Available [facility] (Lab) [address] [facility], [place], [address], 10/13/2016 19:37:04 10/14/19 17 10/13/2016 CBC w/ auto diff eos (absolute) 0.4 K/uL 0.0-0. 4 Not Available [facility] (Lab) [address] [place], [address], 10/13/2016 19:37:04 10/14/19 17 10/13/2016 CBC w/ auto diff baso (absolute) 0.1 K/uL 0.1-0. 3 Not Available [facility] (Lab) [address] [place], [address], 10/13/2016 19:37:04 10/14/19 17 10/13/2016 CBC w/ auto diff neut % 43.3 % 40.0-7 4.0 Not Available [facility] (Lab) [address] [place], [address], 10/13/2016 19:37:04 10/14/19 17 10/13/2016 CBC w/ auto diff lymphs % 42.9 % 14.0-4 6.0 Not Available [facility] (Lab) [address] [place], [address], 10/13/2016 19:37:04 10/14/19 17 10/13/2016 CBC w/ auto diff mono % 7.8 % 4.0-12 .0 Not Available [facility] (Lab) [address] [place], [address], 10/13/2016 19:37:04 10/14/19 17 10/13/2016 CBC w/ auto diff eos % 5 % <=5 Not Available [facility] (Lab) [address] [place], [address], 10/13/2016 19:37:04 10/14/19 17 10/13/2016 CBC w/ auto diff baso % 0.6 % 0.1-1. 1 Not Available [facility] (Lab) [address] [place], [address], 10/13/2016 19:37:04 10/14/19 17 10/13/2016 PT/PT T, plasm a PT 9.6 secon ds 9.3-11 .4 Not Available [facility] (Lab) [address] [place], [address], 10/13/2016 20:03:56 10/14/19 17 10/13/2016 PT/PT T, plasm a INR 0.95 0.40-2 .00 Not Available [facility] (Lab) [address] [place], [address], 10/13/2016 20:03:56 10/14/19 17 10/13/2016 PT/PT T, plasm a PTT 25.3 secon ds 24.0-3 2.0 Not Available [facility] (Lab) [address] [place], [address], 10/13/2016 20:03:56 10/14/19 17 10/13/2016 PT/PT T, plasm a coagcom Please note Refere nce Range has change d Not Available [facility] (Lab) [address] [place], [address], 10/13/2016 20:03:56 10/14/19 17 10/15/2016 von howard brand facto r (vWF) activ ity, plasm a von willebrand factor (vwf) activity 92 % 50-200 Not Available [facility] (Lab) [address] [place], [address], 10/15/2016 14:24:39 05/03/20 15 11/27/2014 imagi ng/di agnos tic resul t No observ ation record ed. [email or web address] Not Available 2014 17:55:38 08/01/19 17 07/31/2016 usbrr comp PT NAME: EDMUND DEGROOT M : 1969 PT SEX/AG E: F/46 PT ACCT NUMBER : [id number] PT MR#: [id number] ROOM/B ED: PT STATUS : REG CLI DATE OF EXAMIN ATION: ORDERI PHYSIC SHALONDA: AFRICA ALEX Annia ATTEND [facility] PHYSIC SHALONDA: AFRICA ALEX, MNelly DICTAT [facility] PHYSIC SHALONDA: Byron GARCIA M.D. 008 EXAMIN ATION: US PELVIC NON OB COMPLE TE DATE: 09:52: 00 INDICA TION: Right ovaria n cyst. TECHNI QUE: Multip le transa bdomin al sonogr aphic images of the pelvis were obtain ed. COMPAR OG: Ultras ound pelvis 5 FINDIN GS: The uterus measur es 9.7 x 4.3 x 9.0 cm. The uterin e morpho logy is arcuat e. There is no free fluid in the pelvis . The endome trial comple x measur es 8 mm in thickn ess. There is a 1.5 cm submuc osal fibroi d. The right ovary measur es 2.2 x 1.3 x 2.3 cm. The left ovary measur es 2.6 x 1.8 x 3.0 cm. There is normal vascul ar flow in the ovarie s. IMPRES LIZ: 1. Small submuc osal fibroi d. __ Review ed, dictat ed and finali zed at [facility] on A. __ Electr onical ly signed by: Dr. NAZIA GARCIA Date: Time: 13:20 NAZIA GARCIA M.D.__ ___ [facility], [facility] [address] [facility] [address] [place] [address] [facility] (Imaging) [facility], [place], [address], 01/16/2017 19:54:32 08/01/19 17 07/31/2016 US, pelsarmad s, compl ete No observ ation record ed. [facility] [address] [facility] [address], [place], [address], 01/16/2017 19:54:32 09/05/19 17 09/01/2016 US, chio irwin infus ed uteru s No observ ation record ed. [email or web address] [facility] [address] [place] [address], [place], [address], 09/06/2016 14:18:11 09/07/19 17 09/01/2016 US, salin e infus ed uteru s No observ ation record ed. BARCODE [facility] [address], [address], 09/06/2016 14:34:38 Result Notes None recorded. 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 Procedures Surgical History Date Name Laterality Status Provider Name and Address Organization Details Recorded Time 05/03/20 16 Hernia Repair completed Ophelia Donahue [facility] 07/17/19 17 10:41:14 11/28/19 15 DILATION AND CURETTAGE WITH HYSTEROSCOPY (SURG) completed Luz Johnson MA [facility] 12/03/2014 11:27:09 10/23/19 15 Most Recent Mammogram completed Nayeli Mo [facility] 10/23/2014 13:46:31 06/12/19 15 Date of Last Pap Smear completed Ophelia Donahue [facility] 07/17/2016 10:28:31 Imaging Results None recorded. Procedure Notes None recorded. Medical Equipment None Reported. Allergies No known drug allergies Medications Name Sig Start Date Stop Date Status Note LastModified by Organization Details LastModified Time cyclobenzap rine 10 mg tablet 07/17 completed Not Available Not Available Not Available fluconazole 100 mg tablet 07/17 completed Not Available Not Available Not Available clotrimazol e 10 mg major active Not Available Not Available Not Available nystatin 100,000 unit/mL oral suspension 07/17 completed Not Available Not Available Not Available prednisone 10 mg tablet 08/16 completed Not Available Not Available Not Available ipratropium 0.5 mg-albutero l 3 mg (2.5 mg base)/3 mL nebulizatio n soln active Not Available Not Available Not Available albuterol sulfate 2.5 mg/3 mL (0.083 %) solution for nebulizatio n active Not Available Not Available Not Available azithromyci n 250 mg tablet 08/16 completed Not Available Not Available Not Available ibuprofen 800 mg tablet Take 1 tablet 3 times a day by oral route. active Not Available Not Available No t Available tizanidine 4 mg tablet 07/17 completed Not Available Not Available Not Available hydrocodone 5 mg-acetamin ophen 325 mg tablet 07/17 completed Not Available Not Available Not Available meloxicam 15 mg tablet 07/17 completed Not Available Not Available Not Available prednisone 5 mg tablet active Not Available Not Available Not Available Ultram 50 mg tablet Take 1 tablet every 6 hours by oral route as needed. 2016 active Not Available Not Available Not Avai lable Remicade 100 mg intravenous solution Inject 4 mg every 2 months by intraveno us route. active Not Available Not Available No t Available cosyntropin 0.25 mg solution for injection 07/17 completed Not Available Not Available Not Available acetaminoph en 300 mg-codeine 30 mg tablet 07/17 completed Not Available Not Available Not Available ciprofloxac in 250 mg tablet 07/17 completed Not Available Not Available Not Available valacyclovi r 500 mg tablet Take 1 tablet every day by oral route. 07/17 completed Not Available Not Available Not Available hydrocortis one acetate 25 mg rectal suppository 07/17 completed Not Available Not Available Not Available propranolol 10 mg tablet 07/17 completed Not Available Not Available Not Available dexamethaso ne 1 mg tablet 07/17 completed Not Available Not Available Not Available amlodipine 10 mg tablet 07/17 completed Not Available Not Available Not Available dexamethaso ne 2 mg tablet 07/17 completed Not Available Not Available Not Available cephalexin 500 mg capsule 07/17 completed Not Available Not Available Not Available esomeprazol e magnesium 40 mg capsule,del ayed release active Not Available Not Available Not Available lisinopril 10 mg tablet 07/17 completed Not Available Not Available Not Available triamterene 37.5 mg-hydrochl orothiazide 25 mg tablet 07/17 completed Not Available Not Available Not Available montelukast 10 mg tablet active Not Available Not Available Not Available methylpredn isolone 4 mg tablets in a dose pack 07/17 completed Not Available Not Available Not Available dexamethaso ne 0.5 mg tablet 07/17 completed Not Available Not Available Not Available rizatriptan 5 mg tablet 07/17 completed Not Available Not Available Not Available Ventolin HFA 90 mcg/actuati on aerosol inhaler active Not Available Not Available Not Available NuvaRing 0.12 mg-0.015 mg/24 hr vaginal Insert 1 vaginal ring every month by vaginal route. 07/17 completed Not Available Not Available Not Available azithromyci n 500 mg tablet 07/17 completed Not Available Not Available Not Available metoprolol tartrate 25 mg tablet 07/17 completed Not Available Not Available Not Available albuterol sulfate active Not Available Not Available Not Available Symbicort 160 mcg-4.5 mcg/actuati on HFA aerosol inhaler active Not Available Not Available Not Available tranexamic acid 650 mg tablet Take 2 tablets 3 times a day by oral route for 5 days. 07/17 completed Not Available Not Available Not Available Vios Aerosol Delivery System active Not Available Not Available Not Available Vicodin ES 7.5 mg-300 mg tablet 07/17 completed Not Available Not Available Not Available Jublia 10 % topical solution with applicator 07/17 completed Not Available Not Available Not Available Nexium 24HR 20 mg tablet,dora yed release Take 2 tablets every day by oral route. 08/16 completed Not Available Not Available Not Available Vitals Date Recorded Body height Body weight Body mass index (BMI) Systolic And Diastolic Provider Name and Address Organization Details Last Updated DateTime 07/17/2016 160.02 cm 79668.77 g 30.7 kg/m2 122/80 mm[Hg] Ophelia Donahue [place] [facility] 07/17/2016 10:45:37 Date Recorded Body height Body weight Body mass index (BMI) Systolic And Diastolic Provider Name and Address Organization Details Last Updated DateTime 08/16/2016 160.02 cm 70364.48 g 30.6 kg/m2 122/78 mm[Hg] Ophelia Donahue [facility] 08/16/2016 16:59:36 Date Recorded Body height Body weight Body mass index (BMI) Systolic And Diastolic Provider Name and Address Organization Details Last Updated DateTime 09/19/2016 160.02 cm 57344.69 g 31.2 kg/m2 142/92 mm[Hg] Ophelia Donahue [facility] 09/19/2016 14:58:21 Date Recorded Body height Body weight Body mass index (BMI) Systolic And Diastolic Provider Name and Address Organization Details Last Updated DateTime 10/13/2016 160.02 cm 16303.66 g 31 kg/m2 118/78 mm[Hg] Cecile Echols MA [facility] 10/13/2016 16:05:23 Date Recorded Body weight Systolic And Diastolic Provider Name and Address Organization Details Last Updated DateTime 12/15/2014 27334.20517 g 122/74 mm[Hg] Mac Barnhart MD Attn: Accounting,[address] [place], [address], [facility] 12/15/2014 16:17:47 Social History Question Answer Notes LastModified by Organizat ion Details LastModified Time Tobacco Smoking Status [facility] 10:40:16 Is Blood Transfusion Acceptable In An Emergency? Yes Information not available 07/17/2016 What Is Your Level Of Caffeine Consumption? Occasional [email or web address] Information not available 06/12/2014 How Much Tobacco Do You Chew? None [email or web address] Information not available 06/12/2014 What Type Of Diet Are You Following? REGULAR [email or web address] Information not available 06/12/2014 Which Illicit Or Recreational Drugs Have You Used? None [email or web address] Information not available 07/17/2016 Education 4 Year College Informatio n not available 06/12/2014 Live Alone Or With Others? With Others [email or web address] Information not available 06/12/2014 How Many Children Do You Have? 0 Information not available 06/12/2014 Performs Monthly Self-breast Exam? No Information no t available 06/12/2014 Do You Use Protection During Sex? No Information not available 06/12/2014 What Is Your Relationship Status? Information not available 06/12/2014 Seat Belts Used Routinely Yes [email or web address] Information not available 06/12/2014 Are You Sexually Active? Yes [email or web address] Information not available 06/12/2014 How Much Tobacco Do You Smoke? 1 PPD [email or web address] Information not available 07/17/2016 Do You Use Sunscreen Routinely? No [email or web address] Information not available 06/12/2014 How Many Years Have You Smoked Tobacco? 15 [email or web address] Information not available 07/17/2016 Sex: Unknown Functional Status Question Answer Note LastModified by Organizat ion Details LastModified Time What is your level of alcohol consumption? Occasional [email or web address] Information not available 06/12/2014 Are you currently employed? Yes [email or web address] Information not available 06/12/2014 What is your exercise level? Moderate [email or web address] Information not available 06/12/2014 Mental Status None recorded. Family History Relationship Description Onset Age of this Age Resolved Age Notes LastModified by Organization Details LastModified Time Father Hypertensive disorder Not available 2016 10:25:25 Father Diabetes mellitus [email or web address] Not available 2016 10:25:32 Mother Hypertensive disorder [email or web address] Not available 2016 10:25:25 Maternal Grandfather Diabetes mellitus [email or web address] Not available 2016 10:39:45 Brother Diabetes mellitus [email or web address] Not available 2016 10:39:55 Maternal Grandmother Kidney disease Not available 2016 10:40:07 Medical History Condition Response Asthma Y Gynecological History Statement/Question Response Abnormal Pap Y Flow Moderate STIs/STDs N HPV Vaccine N Duration of Flow (days) 11 Most Recent Mammogram 10/22/2014 Age at Menarche 11 Current Control Method Other Frequency of Cycle (Q days) 20 Sexually Active? Y Menses Monthly Y Date of Last Pap Smear 06/12/2014 Sexual Problems? N LMP Approximate Obstetrics History GPAL:G 0 P 0 0 0 0 Type Value Living 0 Total 0 Past Encounters Encounter ID Performer Location Encounter Start Date Encounter Closed Date Diagnosis/Indication Diagnosis SNOMED-CT Code Diagnosis ICD10 Code Diagnosis Note [id number] Mac Barnhart MD W Paresh irwin (SILVICULTURIST) [address] [place] [address] 06/12/2014 14:54:26 06/15/2014 11:46:17 Gynecologic examination [id number] Dysmenorrhea [id number] MD Melly Arguello (SILVICULTURIST) [address] [place] [phone] 10/06/2014 16:11:10 10/06/2014 19:44:55 Dysmenorrhea [id number] Uterus bic ornis unicollis 40878025 [id number] MD Melly Arguello (SILVICULTURIST) [address] [place] [address] 10/26/2014 16:18:28 10/26/2014 22:52:00 Adrenal Humberto's syndrome [id number] MD Melly Arguello (SILVICULTURIST) [address] [place] [address] 12/15/2014 15:46:33 12/16/2014 10:59:13 Dysmenorrhea 994603184 Uterus bic ornis unicollis 40945199 Adrenal Cu shing's syndrome 392197073 [id number] MD Melly Arguello (SILVICULTURIST) [address] [place] [address] 07/17/2016 09:53:02 07/19/2016 10:56:15 Uterus bicornis unicollis 51291758 Q51.3 unable to do novasure Dysmenorrhea 529029294 N 94.6 Adrenal Cu shing's syndrome 791467820 E24.9 pt reporta thtat is has resolved since she had surgery Pain in pelvis 15585202 R10.[address] positive with left peritoneal cyst--Sero ma Cyst of right ovary 1223 090632 [id number] N83.739 [id number] MD Melly Arguello (SILVICULTURIST) [address] [place] [phone] 08/16/2016 15:56:11 08/18/2016 09:39:26 Dysmenorrhea 363187556 N94.6 [id number] Mac Barnhart MD [facility] (SILVICULTURIST) [address] [place] [address] 09/19/2016 14:48:14 10/03/2016 10:37:41 Dysmenorrhea [id number] N94.6 [id number] Mac Barnhart MD [facility] (SILVICULTURIST) [address] [place] [address] 10/13/2016 15:51:40 10/23/2016 08:47:14 Break-through bleeding 55746072 N92.1 Health Concerns Section Related Observation LastModified by Organization Detai ls LastModified Time None Recorded Concern Status LastModified by Organization Details LastModified Time None Recorded Advance Directives Directive None Recorded Payers Insurance Date Sequence Insurance Name Policy Number Policy Younger Covered Member ID Younger Member ID Guarantor Name 10/23/2016 1 [place] [id number] Sienna Carter [id number] Sienna Mckeon Notes Date Note Type Note Provider Name and Address Organization Details Recorded Time 12/15/2014 text/html Feeling well-had heavy menses after last D&C--showed me reports from her smartphone of her last endocrinological visit at [facility]--17 oh pregnenolone<10 / DHEAS 11.2 / lh 5 / FSH 6.9 / PRL 12.9 / insulin-like growth factor 144 / TSH 1.65 / T4 1.13 / Test <3 / E2 57 / cortisol baseline 12.9/ cortisol 30 min 20.8 / cortisol stimulate 25 /ACTH 58.2 wnl Mac Barnhart MD Attn: Accounting,[address] [facility], [place], [address], [facility] 12/15/2014 18:23:42 07/17/2016 text/html c/o se dante dysmenorhea treatwed erffecctivel with Ibuprofen 1200 mg, S/P left inguinal herniorrhaphy 05/03/16 has developed seroma at mesh site. A Ct revvealed a small cyst in rioght ovary and lympohatic node enlargement Mac Barnhart MD Attn: Accounting,[address] [facility], [place], [address], [facility] 07/17/2016 12:28:35 09/19/2016 text/html Pt reporting htat has not had a discrete period and that she has had spotting daily. Which is not accompanied by cramping or pain but now has made it difficult of having any intimacy Mac Barnhart MD Attn: Accounting,[address] [facility], [place], [address], [facility] 09/19/2016 18:35:21 10/13/2016 text/html having persiditnt BTb while on Nuvaring since June 2016 . Since 2 weeks ago with pain and incresed flow. Mac Barnhart MD Attn: Accounting,[address] [facility], [place], [address], [facility] 10/13/2016 17:36:40 OBGyn Episode No OBEpisode recorded.
--- OUTSIDE RECORDS SUMMARY | 2024-12-14 04:15 | XMS_ITS | Patient Health Record ---
Author Organization [facility] Address [address] [facility] [address] [place], [place] [id number] Care Team Providers Care Clinical Nutritionist Name Role Phone Abelino Marmolejo MD Primary Care Provider Unavailnila Arreaga Clarisa Unavailable [phone] Stephanie Núñez Unavailable [phone] ALLERGIES No Known Allergies RESULTS Component Value Reference Range Notes AST (SGOT) Reviewed date:03/24/2024 02:10:56 PM Interpretation: Performing Lab:[facility], Phone - [phone], Director - [facility] Notes/Report: AST (SGOT) 26 0-40 IU/L Creatinine, Serum Reviewed date:03/24/2024 02:10:56 PM Interpretation: Performing Lab:[employer] [facility], Phone - [phone], Director - [facility] Notes/Report: Creatinine 0.86 0.57-1.00 mg/dL eGFR 81 >59 mL/min/1.73 ALT (SGPT) Reviewed date:03/24/2024 02:10:56 PM Interpretation: Performing Lab:[facility], Phone - [phone], Director - [facility] Notes/Report: ALT (SGPT) 22 0-32 IU/L CBC With Differential/Platel et Reviewed date:03/24/2024 02:10:56 PM Interpretation: Performing Lab:[facility] [place], Phone - [phone], Director - [facility] Notes/Report: WBC 7.7 3.4-10.8 x10E3/uL RBC 4.60 3.77-5.28 x10E6/uL Hemoglobin 13.9 11.1-15.9 g/dL Hematocrit 42.6 34.0-46.6 % MCV 93 79-97 fL MCH 30.2 26.6-33.0 pg MCHC 32.6 31.5-35.7 g/dL RDW 12.1 11.7-15.4 % Platelets 370 150-450 x10E3/uL Neutrophils 61 Not Estab. % Lymphs 27 Not Estab. % Monocytes 7 Not Estab. % Eos 4 Not Estab. % Basos 1 Not Estab. % Immature Cells Neutrophils (Absolute) 4.7 1.4-7.0 x10E3/uL Lymphs (Absolute) 2.1 0.7-3.1 x10E3/uL Monocytes(Absolute) 0.5 0.1-0.9 x10E3/uL Eos (Absolute) 0.3 0.0-0.4 x10E3/uL Baso (Absolute) 0.1 0.0-0.2 x10E3/uL Immature Granulocytes 0 Not Estab. % Immature Grans (Abs) 0.0 0.0-0.1 x10E3/uL NRBC Hematology Comments: Sed Rate - Westergren Reviewed date:03/24/2024 02:10:56 PM Interpretation: Performing Lab:[facility] [address] [facility], Phone - [phone], Director - [facility] Notes/Report: Sedimentation Rate-[place] Lake[place] 25 0-40 mm/hr QUANTIFERON(R)-TB GOLD PLUS, 1 TUBE Reviewed date:03/24/2024 02:10:56 PM Interpretation: Performing Lab:[facility], [address] [facility], Phone - [phone], Director - [facility] Notes/Report: QuantiFERON Incubation Incubation performed. QuantiFERON-TB Gold Plus Negative Negative No response to M tuberculosis antigens detected. Infection with M tuberculosis is unlikely, but high risk individuals should be considered for additional testing (ATS/IDSA/CDC Clinical Practice Guidelines, 2017). The reference range is an Antigen minus Nil result of <0.35 IU/mL. Chemiluminescence immunoassay methodology QuantiFERON Criteria QuantiFERON-TB Gold Plus is a qualitative indirect test for M tuberculosis infection (including disease) and is intended for use in conjunction with risk assessment, radiography, and other medical and diagnostic evaluations. The QuantiFERON-TB Gold Plus result is determined by subtracting the Nil value from either TB antigen (Ag) value. The Mitogen tube serves as a control for the test. QuantiFERON TB1 Ag Value 0.07 QuantiFERON TB2 Ag Value 0.09 QuantiFERON Nil Value 0.07 QuantiFERON Mitogen Value >10.00 AST (SGOT) Reviewed date:06/19/2024 01:07:23 PM Interpretation: Performing Lab:[address], Phone - [phone], Director - [facility] Notes/Report: AST (SGOT) 23 0-40 IU/L Creatinine, Serum Reviewed date:06/19/2024 01:07:23 PM Interpretation: Performing Lab:[address], Phone - [phone], Director - [facility] Notes/Report: Creatinine 1.09 0.57-1.00 mg/dL eGFR 60 >59 mL/min/1.73 ALT (SGPT) Reviewed date:06/19/2024 01:07:23 PM Interpretation: Performing Lab:[address], Phone - [phone], Director - [facility] Notes/Report: ALT (SGPT) 17 0-32 IU/L CBC With Differential/Platel et Reviewed date:06/19/2024 01:07:23 PM Interpretation: Performing Lab:[address], Phone - [phone], Director - [facility] Notes/Report: WBC 6.2 3.4-10.8 x10E3/uL RBC 4.84 3.77-5.28 x10E6/uL Hemoglobin 14.1 11.1-15.9 g/dL Hematocrit 44.0 34.0-46.6 % MCV 91 79-97 fL MCH 29.1 26.6-33.0 pg MCHC 32.0 31.5-35.7 g/dL RDW 12.0 11.7-15.4 % Platelets 417 150-450 x10E3/uL Neutrophils 43 Not Estab. % Lymphs 41 Not Estab. % Monocytes 10 Not Estab. % Eos 5 Not Estab. % Basos 1 Not Estab. % Immature Cells Neutrophils (Absolute) 2.6 1.4-7.0 x10E3/uL Lymphs (Absolute) 2.5 0.7-3.1 x10E3/uL Monocytes(Absolute) 0.6 0.1-0.9 x10E3/uL Eos (Absolute) 0.3 0.0-0.4 x10E3/uL Baso (Absolute) 0.1 0.0-0.2 x10E3/uL Immature Granulocytes 0 Not Estab. % Immature Grans (Abs) 0.0 0.0-0.1 x10E3/uL NRBC Hematology Comments: Sed Rate - Westergren Reviewed date:06/19/2024 01:07:23 PM Interpretation: Performing Lab:[employer] [address], Phone - [phone], Director - [facility] Notes/Report: Sedimentation Rate-Westergren 11 0-40 mm/hr Magnesium, Serum Reviewed date:08/20/2024 07:57:34 AM Interpretation: Performing Lab:[employer] [address], Phone - [phone], Director - [facility] Notes/Report: Magnesium 2.2 1.6-2.3 mg/dL Comp. Metabolic Panel (14) Reviewed date:08/20/2024 07:57:34 AM Interpretation: Performing Lab:[employer] [place], [address] [place] [address], Phone - [phone], Director - [facility] Notes/Report: Glucose 94 70-99 mg/dL BUN 22 6-24 mg/dL Creatinine 0.80 0.57-1.00 mg/dL eGFR 88 >59 mL/min/1.73 BUN/Creatinine Ratio 28 9-23 Sodium 139 134-144 mmol/L Potassium 4.7 3.5-5.2 mmol/L Chloride 102 96-106 mmol/L Carbon Dioxide, Total 24 20-29 mmol/L Calcium 9.9 8.7-10.2 mg/dL Protein, Total 7.3 6.0-8.5 g/dL Albumin 4.5 3.8-4.9 g/dL Globulin, Total 2.8 1.5-4.5 g/dL Bilirubin, Total 0.7 0.0-1.2 mg/dL Alkaline Phosphatase 80 44-121 IU/L AST (SGOT) 20 0-40 IU/L ALT (SGPT) 18 0-32 IU/L AST (SGOT) Reviewed date:09/18/2024 09:08:03 AM Interpretation: Performing Lab:[employer], Phone - [phone], Director - [facility] Notes/Report: AST (SGOT) 24 0-40 IU/L Creatinine, Serum Reviewed date:09/18/2024 09:08:03 AM Interpretation: Performing Lab:[address], Phone - [phone], [facility] - [facility] Notes/Report: Creatinine 0.80 0.57-1.00 mg/dL eGFR 88 >59 mL/min/1.73 ALT (SGPT) Reviewed date:09/18/2024 09:08:03 AM Interpretation: Performing Lab:[address], Phone - [phone], [facility] Notes/Report: ALT (SGPT) 18 0-32 IU/L CBC With Differential/Platel et Reviewed date:09/18/2024 09:08:03 AM Interpretation: Performing Lab:[address], Phone - [phone], [facility] - [facility] Notes/Report: WBC 5.0 3.4-10.8 x10E3/uL RBC 5.17 3.77-5.28 x10E6/uL Hemoglobin 15.7 11.1-15.9 g/dL Hematocrit 47.9 34.0-46.6 % MCV 93 79-97 fL MCH 30.4 26.6-33.0 pg MCHC 32.8 31.5-35.7 g/dL RDW 13.1 11.7-15.4 % Platelets 434 150-450 x10E3/uL Neutrophils 48 Not Estab. % Lymphs 37 Not Estab. % Monocytes 9 Not Estab. % Eos 5 Not Estab. % Basos 1 Not Estab. % Immature Cells Neutrophils (Absolute) 2.4 1.4-7.0 x10E3/uL Lymphs (Absolute) 1.8 0.7-3.1 x10E3/uL Monocytes(Absolute) 0.4 0.1-0.9 x10E3/uL Eos (Absolute) 0.3 0.0-0.4 x10E3/uL Baso (Absolute) 0.1 0.0-0.2 x10E3/uL Immature Granulocytes 0 Not Estab. % Immature Grans (Abs) 0.0 0.0-0.1 x10E3/uL NRBC Hematology Comments: Sed Rate - Westergren Reviewed date:09/18/2024 09:08:03 AM Interpretation: Performing Lab:[employer] [place], [address] [place] [address], Phone - [phone], Director - [facility] Notes/Report: Sedimentation Rate-Westergren 4 0-40 mm/hr Sed Rate - Westergren Reviewed date:10/12/2024 04:08:28 PM Interpretation: Performing Lab:[employer] [address], Phone - [phone], Director - [facility] Notes/Report: Sedimentation Rate-Westergren 25 0-40 mm/hr C-Reactive Protein, Quant Reviewed date:10/12/2024 04:08:28 PM Interpretation: Performing Lab:[employer] [address], Phone - [phone], Director - [facility] Notes/Report: C-Reactive Protein, Quant 1 0-10 mg/L AST (SGOT) Reviewed date:11/19/2024 08:09:04 AM Interpretation: Performing Lab:[employer] [address], Phone - [phone], Director - [facility] Notes/Report: AST (SGOT) 22 0-40 IU/L Creatinine, Serum Reviewed date:11/19/2024 08:09:04 AM Interpretation: Performing Lab:[employer] [place], [address] [place] [address], Phone - [phone], Director - [facility] Notes/Report: Creatinine 0.84 0.57-1.00 mg/dL eGFR 83 >59 mL/min/1.73 ALT (SGPT) Reviewed date:11/19/2024 08:09:04 AM Interpretation: Performing Lab:[employer], Phone - [phone], Director - [facility] Notes/Report: ALT (SGPT) 20 0-32 IU/L CBC With Differential/Platel et Reviewed date:11/19/2024 08:09:04 AM Interpretation: Performing Lab:[facility], [address] [place] [address], Phone - [phone], Director - [facility] Notes/Report: WBC 6.2 3.4-10.8 x10E3/uL RBC 4.84 3.77-5.28 x10E6/uL Hemoglobin 14.9 11.1-15.9 g/dL Hematocrit 45.2 34.0-46.6 % MCV 93 79-97 fL MCH 30.8 26.6-33.0 pg MCHC 33.0 31.5-35.7 g/dL RDW 11.6 11.7-15.4 % Platelets 393 150-450 x10E3/uL Neutrophils 51 Not Estab. % Lymphs 35 Not Estab. % Monocytes 9 Not Estab. % Eos 4 Not Estab. % Basos 1 Not Estab. % Immature Cells Neutrophils (Absolute) 3.2 1.4-7.0 x10E3/uL Lymphs (Absolute) 2.2 0.7-3.1 x10E3/uL Monocytes(Absolute) 0.5 0.1-0.9 x10E3/uL Eos (Absolute) 0.2 0.0-0.4 x10E3/uL Baso (Absolute) 0.1 0.0-0.2 x10E3/uL Immature Granulocytes 0 Not Estab. % Immature Grans (Abs) 0.0 0.0-0.1 x10E3/uL NRBC Hematology Comments: Sed Rate - Westergren Reviewed date:11/19/2024 08:09:04 AM Interpretation: Performing Lab:[facility], [address] [place] [address], Phone - [phone], Director - [facility] Notes/Report: Sedimentation Rate-Westergren 15 0-40 mm/hr C-Reactive Protein, Quant Reviewed date:11/19/2024 08:09:04 AM Interpretation: Performing Lab:[facility] [place], [address] [facility], [place], Phone - [phone], Director - [facility] Notes/Report: C-Reactive Protein, Quant 2 0-10 mg/L REASON FOR REFERRAL Reason REMICADE 400 MG DOSE MAX PER VISIT Diagnosis 1 Ankylosing spondylit is (M45.9) Referral Organization [facility] Referring Provider First Name Clarisa Referring Provider Last Name Whitley Referring Provider Speciality Rheumatolo gy Referred Organization [facility] Referred Provider Clarisa Arreaga Referred Address [address] [facility] [address],[place], [id number], Referred Provider Specialty Rheumatology Referral Priority Routine MEDICATIONS Medication SIG (Take, Route, Frequency, Duration) Notes Start Date End Date Status Remicade 100 mg 5 mg/kg intravenousl y every 6 weeks Active cyclobenzaprine 10 mg 1 tab(s) orally at night as needed Active Arava 20 mg 1 tab(s) orally once a day for 30 day(s) 11/18/2024 Active meloxicam 15 mg 1 tab(s) orally once a day Active tramadol 50 mg 1 tab(s) orally ever y 8 hours prn Active Breo Ellipta PRN Active Diclofenac Sodium sodium 75 mg 1 tab(s) orally 2 times a day 10/09/2024 Active TraMADol Hydrochloride 50 mg 1 tab(s) orally every 8 hours as needed 07/09/2023 Active NexIUM 40 mg 1 cap(s) orally once a day Active metFORMIN 500 mg 1 tab(s) orally 2 ti mes a day Active Singulair 10 mg 1 tab(s) orally once a day (in the evening) prn Active albuterol CFC free 90 mcg/inh 2 puff(s) inhaled PRN Active estrogen Active PROBLEMS Problem Type ICD Code Onset Dates Problem Status W/U Status Risk SNOMED Code Notes Problem Other mcfp (current) drug therapy (Z79.899) Active confirmed 109412684 Problem Ankylosing spondylitis (M45.9) Active confirmed 8151941 Problem Vitamin D deficiency (E55.9) Active confirmed 89718872 Problem Screening examination for pulmonary tuberculosis (Z11.1) Active confirmed 218611540 Problem BP (high blood pressure) (I10) Active confirmed 05198012 Problem Left hip pain (M25.552) Active confirmed 37078546 Problem Former cigarette smoker (Z87.891) Active confirmed 398620772 Problem Pain of left thumb (M79.645) Active confirmed 6968289852684838 Problem Carpal tunnel syndrome of right wrist (G56.01) Active confirmed 603208243025496 Problem Thoracic spine pain (M54.6) Active confirmed 096010611 Problem Carpal tunnel syndrome of left wrist (G56.02) Active confirmed 917137585062382 Problem Spine pain, lumbar (M54.5) Active confirmed 983075723 VITAL SIGNS Heart Rate 86 /min 11/18/2024 Temperature 97.4 degrees Fahrenheit 11/05/2024 Blood pressure diastolic 91 mm Hg 11/18/2024 Height 66 in 11/18/2024 Blood pressure systolic 145 mm Hg 11/18/2024 Weight 170 lbs 11/18/2024 BMI 27.44 kg/m2 11/18/2024 Encounters Encounter Location Date Provider Diagnosis [facility] [address] [place], [place] [id number] 01/28/2024 Akpatrick Whitley Ankylosing spondylit is M45.9 [facility] [address] [facility], [facility] [address] [place], [place] [id number] 03/20/2024 Akgun Whitley Ankylosing spondylit is M45.9 ; Other mcfp (current) drug therapy Z79.899 and Screening examination for pulmonary tuberculosis Z11.1 [facility] [address] [place], [place] [id number] 05/06/2024 Akgun Whitley Ankylosing spondylit is M45.9 [facility] [address] [place], [place] [id number] 06/17/2024 Akgun Whitley Ankylosing spondylit is M45.9 and Other mcfp (current) drug therapy Z79.899 [facility] [address] [place], [place] [id number] 07/29/2024 Akgun Whitley Ankylosing spondylit is M45.9 [facility] [address], [address] [id number] 09/17/2024 Akgun Whitley Ankylosing spondylit is M45.9 and Other mcfp (current) drug therapy Z79.899 [facility] [address] [facility], [address] [id number] 11/05/2024 Akgun Whitley Ankylosing spondylit is M45.9 [facility] [address] [facility], [address] [id number] 04/08/2024 Akgun Whitley [facility] [address] [facility], [address] [id number] 04/28/2024 Akgun Whitley Ankylosing spondylit is M45.9 and Other mcfp (current) drug therapy Z79.899 [facility] [address] [facility], [address] [id number] 08/04/2024 Located Within [facility] [address] [facility], [address] [id number] 08/12/2024 Located [facility] [address] [facility], [address] [id number] 08/19/2024 Stephanie Fac Ankylosing spondylit is M45.9 ; Other mcfp (current) drug therapy Z79.899 and Muscle cramp R25.2 [facility] [address] [facility], [address] [id number] 11/18/2024 Akgun Whitley Ankylosing spondylit is M45.9 and Other mcfp (current) drug therapy Z79.899 [facility] [address] [facility], [address] [id number] 10/09/2024 Stephanie Fajic Ankylosing spondylit is M45.9 ; Low back pain M54.50 ; Other mcfp (current) drug therapy Z79.899 ; Muscle cramp R25.2 and Knee pain M25.569 [facility] [address] [facility], [address] [id number] 03/19/2024 Akgun Whitley Ankylosing spondylit is M45.9 [facility] [address] [place], [place] [id number] 04/25/2024 Akgun Whitley [facility] [address], [address] [place] [id number] 04/30/2024 Akgun Whitley [facility] [address], [address] [place] [id number] 08/20/2024 Akgun Whitley [facility] [address], [address] [place], [place] [id number] 09/29/2024 Akgun Whitley Ankylosing spondylit is M45.9 [facility] [address], [address] [place] [id number] 10/08/2024 Akgun Whitley [facility] [address], [address] [place] [id number] 10/09/2024 Akgun Whitley [facility] [address], [address] [place] [id number] 10/12/2024 Akgun Whitley [facility] [address], [address] [place] [id number] 10/14/2024 Akgun Whitley [facility] [address], [address] [place] [id number] 11/11/2024 Akgun Whitley [facility] [address], [address] [id number] 11/18/2024 Akgun Whitley Ankylosing spondylit is M45.9 [facility] [address], [address] [place] [id number] 03/11/2024 Akgun Whitley [facility] [address], [address] [place] [id number] 04/11/2024 Akgun Whitley [facility] [address] [place], [place] [id number] 07/07/2024 Akgun Whitley [facility] [address], [address] [id number] 07/07/2024 Akgun Whitley [facility] [address] [facility], [address] [place], [place] [id number] 08/01/2024 Clarisa Arreaga [facility] [address] [place], [place] [id number] 12/02/2024 Clarisa Arreaga [facility] [address] [place], [place] [id number] 12/02/2024 Clarisa Arreaga ASSESSMENTS Encounter Date Diagnosis Assessment Notes Treatment Notes Treatment Clinical Notes Section Notes 01/28/2024 Ankylosing spondylitis (ICD-10 - M45.9) 03/20/2024 Other intermediate frame tender (current) drug therapy (ICD-10 - Z79.899) 03/20/2024 Ankylosing spondylitis (ICD-10 - M45.9) 05/06/2024 Ankylosing spondylitis (ICD-10 - M45.9) 06/17/2024 Other intermediate frame tender (current) drug therapy (ICD-10 - Z79.899) 06/17/2024 Ankylosing spondylitis (ICD-10 - M45.9) 07/29/2024 Ankylosing spondylitis (ICD-10 - M45.9) 09/17/2024 Other intermediate frame tender (current) drug therapy (ICD-10 - Z79.899) 09/17/2024 Ankylosing spondylitis (ICD-10 - M45.9) 11/05/2024 Ankylosing spondylitis (ICD-10 - M45.9) 04/28/2024 Other intermediate frame tender (current) drug therapy (ICD-10 - Z79.899) I recommend to continue with the same medications and to drink plenty of water. Recent laboratory studies and today's ARMD MDHAQ form are reviewed. Current treatment recommendations and treatment options are discussed with patient. A copy of this progress note and any studies ordered will be forwarded to this patient's primary care physician for coordination of care. 04/28/2024 Ankylosing spondylitis (ICD-10 - M45.9) I recommend to continue with the same medications and to drink plenty of water. Recent laboratory studies and today's ARMD MDHAQ form are reviewed. Current treatment recommendations and treatment options are discussed with patient. A copy of this progress note and any studies ordered will be forwarded to this patient's primary care physician for coordination of care. 08/19/2024 Other mcfp (current) drug therapy (ICD-10 - Z79.899) - Cont Remica de infusions every 6 weeks. Did not tolerate MTX due to GI SE. Labs in infusion. Yearly QNF. Mouth sores - saw Dr. Williamson dx her with PsO and gave her PRN topical steroid for flares. Muscle cramps - check electrolytes, can try theraworx OTC. 08/19/2024 Ankylosing spondylitis (ICD-10 - M45.9) - Cont Remic bertrand infusions every 6 weeks. Did not tolerate MTX due to GI SE. Labs in infusion. Yearly QNF. Mouth sores - saw Dr. Williamson dx her with PsO and gave her PRN topical steroid for flares. Muscle cramps - check electrolytes, can try theraworx OTC. 11/18/2024 Other mcfp (current) drug therapy (ICD-10 - Z79.899) I have added treatment with leflunomide 20 mg daily in combination with Remicade infusions. I have ordered routine labs today. Patient will follow up in 4 weeks. Patient reports 1 adrenal gland working so we will use predniosne sparingly. Patient was given a 6 day taper of prednisone. Recent laboratory studies and today's ARMD MDHAQ form are reviewed. Current treatment recommendations and treatment options are discussed with patient. A copy of this progress note and any studies ordered will be forwarded to this patient's primary care physician for coordination of care. 11/18/2024 Ankylosing spondylitis (ICD-10 - M45.9) I have added treatment with leflunomide 20 mg daily in combination with Remicade infusions. I have ordered routine labs today. Patient will follow up in 4 weeks. Patient reports 1 adrenal gland working so we will use predniosne sparingly. Patient was given a 6 day taper of prednisone. Recent laboratory studies and today's ARMD MDHAQ form are reviewed. Current treatment recommendations and treatment options are discussed with patient. A copy of this progress note and any studies ordered will be forwarded to this patient's primary care physician for coordination of care. 10/09/2024 Ankylosing spondylitis (ICD-10 - M45.9) - Cont Remic bertrand infusions every 6 weeks. Did not tolerate MTX due to GI SE. Low back pain - likely muscular, can try pred taper and muscle relaxer, check Lspine x-ray. Knee pain - check x-rays, consider knee injections. Consider adding Leflunomide to see if it will help with migratory joint pain, did dicuss that she also has OA. Switch NSAID to Diclofenac. Check ESR/CRP. Labs in infusion. Yearly QNF. Mouth sores - saw Dr. Williamson dx her with PsO and gave her PRN topical steroid for flares. 10/09/2024 Low back pain (ICD-10 - M54.50) - Cont Remica de infusions every 6 weeks. Did not tolerate MTX due to GI SE. Low back pain - likely muscular, can try pred taper and muscle relaxer, check Lspine x-ray. Knee pain - check x-rays, consider knee injections. Consider adding Leflunomide to see if it will help with migratory joint pain, did dicuss that she also has OA. Switch NSAID to Diclofenac. Check ESR/CRP. Labs in infusion. Yearly QNF. Mouth sores - saw Dr. Williamson dx her with PsO and gave her PRN topical steroid for flares. 03/19/2024 Ankylosing spondylitis (ICD-10 - M45.9) 09/29/2024 Ankylosing spondylitis (ICD-10 - M45.9) 11/18/2024 Ankylosing spondylitis (ICD-10 - M45.9) 03/20/2024 Screening examination for pulmonary tuberculosis (ICD-10 - Z11.1) 08/19/2024 Muscle cramp (ICD-10 - R25.2) - Cont Remic bertrand infusions every 6 weeks. Did not tolerate MTX due to GI SE. Labs in infusion. Yearly QNF. Mouth sores - saw Dr. Williamson dx her with PsO and gave her PRN topical steroid for flares. Muscle cramps - check electrolytes, can try theraworx OTC. 10/09/2024 Other mcfp (current) drug therapy (ICD-10 - Z79.899) - Cont Remica de infusions every 6 weeks. Did not tolerate MTX due to GI SE. Low back pain - likely muscular, can try pred taper and muscle relaxer, check Lspine x-ray. Knee pain - check x-rays, consider knee injections. Consider adding Leflunomide to see if it will help with migratory joint pain, did dicuss that she also has OA. Switch NSAID to Diclofenac. Check ESR/CRP. Labs in infusion. Yearly QNF. Mouth sores - saw Dr. Williamson dx her with PsO and gave her PRN topical steroid for flares. 10/09/2024 Muscle cramp (ICD-10 - R25.2) - Cont Remic bertrand infusions every 6 weeks. Did not tolerate MTX due to GI SE. Low back pain - likely muscular, can try pred taper and muscle relaxer, check Lspine x-ray. Knee pain - check x-rays, consider knee injections. Consider adding Leflunomide to see if it will help with migratory joint pain, did dicuss that she also has OA. Switch NSAID to Diclofenac. Check ESR/CRP. Labs in infusion. Yearly QNF. Mouth sores - saw Dr. Williamson dx her with PsO and gave her PRN topical steroid for flares. 10/09/2024 Knee pain (ICD-10 - M25.569) - Cont Remica de infusions every 6 weeks. Did not tolerate MTX due to GI SE. Low back pain - likely muscular, can try pred taper and muscle relaxer, check Lspine x-ray. Knee pain - check x-rays, consider knee injections. Consider adding Leflunomide to see if it will help with migratory joint pain, did dicuss that she also has OA. Switch NSAID to Diclofenac. Check ESR/CRP. Labs in infusion. Yearly QNF. Mouth sores - saw Dr. Williamson dx her with PsO and gave her PRN topical steroid for flares. PLAN OF TREATMENT Pending Test Test Name Order Date Sed Rate (IH) 05/19/2014 Sed Rate (IH) 07/03/2022 X ray : Spines, dorsal- outside order X ray : Spines, lumbar- outside order X ray : Spines, lumbar- outside order X ray : Spines, lumbar- outside order AST (SGOT) 06/07/2023 Creatinine, Serum 06/07/2023 ALT (SGPT) 06/07/2023 Complement, Total (CH50) 03/07/2023 CBC With Differential/Platelet 01/18/202 4 CBC With Differential/Platelet 3 Sed Rate - Westergren 06/07/2023 Sed Rate - Westergren 07/25/2018 C-Reactive Protein, Quant 12/24/2015 C-Reactive Protein, Quant 09/30/2014 C-Reactive Protein, Quant 07/02/2015 C-Reactive Protein, Quant 07/25/2018 Joint Injection - CMC, LEFT 12/10/2018 AST (IH) 03/03/2021 ALT (IH) 03/03/2021 Creatinine (IH) 03/03/2021 Joint Injection-wrist, right 04/30/2018 X ray : SI joints- outside order 019 X ray : Knee, right 3 views- outside ord er 10/09/2024 X ray : Knee, left, 3 views- outside ord er 10/09/2024 PPD 07/14/2014 X ray : Shoulder, left- outside order Lab slip given 05/07/2020 CREATININE 07/03/2022 ASPARTATE AMINOTRANSFERASE 07/03/2022 ALANINE AMINOTRANSFERASE 07/03/2022 Insurance Providers Payer Name Payer Address Payer Phone Subscriber Number Group Number Insured Name Patient Relationship to Insured Coverage Start Date Coverage End Date BCBS Federal 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 Program [address] [place] [address] [id number] Sienna Martines Self - patient is the insured 3 MEDICAL (GENERAL) HISTORY Medical History History ICD Code hoarseness swelling of ankles/feet asthma indigestion abnormal pap smear pneumonia 1998 esophageal ulcers 2014 vitamin D deficiency CARPAL TUNNEL 2017 pneumonia Sep, 2018 stress fracture left foot Surgical History Surgery Date(Month/Year) hernia repair left flank Jul, 2017 D & C November 27, 2013 ganglion cyst excised right foot Dec, left adrenal gland excised Sep, 2013 hardware removed from foot 2009 lis gallo fusion 2007 Hospitalization History Reason Date(Month/Year) kidney infection - [facility] 11/03/20 L adrenalectomy 10/01
--- OUTSIDE RECORDS SUMMARY | 2024-12-14 04:15 | XMS_ITS | Clinical Summary ---
Author Organization [facility] Address [address] [place] [address] Care Team Providers Care Hooker Operator Name Role Phone Abelino Marmolejo MD Primary Care Provider [phone] Allergies No known active allergies Medications albuterol [...] Allergic rhinitis 01/07/2004 10/06/2022 Asthma 01/07/2004 10/06/2022 Surgical History Surgery Date Site/Laterality Comments ND UNLISTED PROCEDURE ABDOMEN PERITONEUM & OMENTUM Hernia Repair - (Added by TW Conv) FOOT SURGERY Foot Surgery - (Added by TW Conv) ND INJECTION AA&/STRD ILIOINGUINAL IH NERVES Nerve Block Ilioinguinal - excision (Added by TW Conv) ADRENALECTOMY Adrenalectomy - (Added by TW Conv) ND TOTAL ABDOMINAL HYSTERECT W/WO RMVL TUBE OVARY Hysterectomy - (Added by TW Conv) ND SALPINGO-OOPHORECTOMY COMPL/PRTL UNI/BI SPX Salpingo-oophorectomy Unilateral - (Added by TW Conv) FRACTURE SURGERY LEFT LIS FRANC FUSION, 2ND HARDWARE REMOVAL DUE TO PAIN AND CLEARANCE ISSUES HERNIA REPAIR MULTIPLE DATES HYSTERECTOMY 2006 Medical History Medical History Date Comments Personal history of allergy to anesthetic agent Reaction To Anesthetics - nausea (Added by TW Conv) Personal history of other diseases of the musculoskeletal system and connective tissue History of systemic lupus erythematosus (SLE) - (Added by TW Conv) Personal history of other diseases of the circulatory system History of hypertension - (Added by TW Conv) Uncomplicated asthma Asthma - (A dded by TW Conv) Abdominal hernia without obstruction or gangrene Hernia - (Added by TW Conv) Personal history of other diseases of the circulatory system History of stenosis of renal artery - (Added by TW Conv) Personal history of other diseases of the circulatory system History of hypertension - (Added by TW Conv) Other specified disorders of arteries and arterioles Fibromuscular dysplasia of renal artery - (Added by TW Conv) Renovascular hypertension Balaton scular hypertension - (Added by TW Conv) Personal history of other diseases of the musculoskeletal system and connective tissue History of ankylosing spondylitis - (Added by TW Conv) GERD (gastroesophageal reflu x disease) 05/21/1997 Autoimmune disease ANKYLOSING SPONDYLITIS Family History Medical History Relation Name Comments Diabetes Father MYCHAL CHADWICK Family history of diabetes mellitus - (Added by TW Conv) Hypertension Father MYCHAL CHADWICK Family history of hypertension - (Added by TW Conv) Hypertension Mother BRYANNA CHADWICK Family history of hypertension - (Added by TW Conv) Cancer Other 1 Reported Family History Of Cancer - MGM (Added by TW Conv) Hypertension Other 2 Reported Previo us High Blood Pressure - parents (Added by TW Conv) Diabetes Other 3 Diabetes Mellit us - father, brother, nephew (Added by TW Conv) Heart disease Other 4 Heart Disease - uncles (Added by TW Conv) Breast cancer Other 5 Breast Cancer - maternal great aunt (Added by TW Conv) Breast cancer Other 6 Family history of malignant neoplasm of breast - Relation: Aunt (Added by TW Conv) Relation Name Status Comments Father MYCHAL CHADWICK Mother BRYANNA CHADWICK Other 1 Other 2 Other 3 Other 4 Other 5 Other 6 Social History Tobacco Use Types Packs/Day Years Used Date Smoking Tobacco: Former Cigarettes 1 17 0 02/06/1988 - 02/22/2005 Smokeless Tobacco: Never Tobacco Cessation:Counseling Given: Not Answered Comments Unknown Sex and Gender Information Value Date Recorded Sex Assigned at Not on file Legal Sex Female 5:05 AM PULP MAKER Gender Identity Not on file Sexual Orientation Not on file Obstetrics History Last Filed Vital Signs Vital Sign Reading Time Taken Comments Blood Pressure 105/66 08/10/2017 7:58 AM CDT Pulse 84 08/09/2017 2:28 PM CDT Temperature 36.8 C (98.2 F) 11/27/2014 7:42 AM CDT Respiratory Rate - - Oxygen Saturation 98% 08/10/2017 8:08 AM CDT Inhaled Oxygen Concentration - - Weight 73 kg (161 lb) 06/25/2024 1:04 PM PULP MAKER Height 160 cm (5' 3) 06/25/2024 1:04 PM PULP MAKER Body Mass Index 28.52 06/25/2024 1:04 PM PULP MAKER Plan of Treatment Health Maintenance Due Date Last Done Comments Colon Cancer Screening-Colonoscopy 1970 Depression Screening 1970 Hepatitis C Screening 1970 Hepatitis B Screening 1988 Regular Well Visit/Exam 18-64 1988 Pneumococcal vaccine <65 (1 of 2 - PCV) 1989 Zoster Vaccine (1 of 2) 1989 Covid-19 Vaccine (4 - 2023-2 5 season) 2024 05/16/2021, 08/20/2020, 07/30/2020 Breast Cancer Screening-Mammogram 12/31/2024 01/01/2024, 01/01/2024, 12/26/2022, Additional history exists Influenza Vaccine (#1) 2025 , 05/26/2021, 01/29/2020 DTaP/Tdap/Td Vaccine (2 - Td or Tdap) 08/29/2031 08/28/2021 Insurance [facility] Care Teams Hooker Operator Relationship Specialty [place] [address] [address] PCP - General 10/17/16
--- OUTSIDE RECORDS SUMMARY | 2024-12-14 04:15 | XMS_ITS | Encounter Summary ---
Author Organization [facility] Address [address] [place] [address] Care Team Providers Care Polymer Materials Consultant Name Role Phone Reji Hernández MD Primary Care Provider [phone] Abelino Marmolejo MD Primary Care Provider [phone] Abelino Marmolejo MD Primary Care Provider [phone] Reji Hernández MD Unavailable [phone] Abelino Marmolejo MD Unavailable [phone] Ofe Savage MD Unavailable Vicki Mackay MD Unavailable Hansa Cheng MD Unavailable Tereso Gardner MD Unavailable [phone] Cirilo Guzman MD Unavailable [phone] Marquise Peres MD Unavailable [phone] Vicki Mackay MD Unavailable Encounter Details Date Type Department Care Team (Late st Contact Info) Description 01/14/2013 [facility] Luke Brandon MD [address] [place] [address] Social History Tobacco Use Types Packs/Day Years Used Date Smoking Tobacco: Former Cigarettes Q uit: 04/28/2003 Alcohol Use Standard Drinks/Week Comments No 0 (1 standard drink = 0.6 oz pur e alcohol) Comments No Sex and Gender Information Value Date Recorded Sex Assigned at Not on file Legal Sex Female 6:59 AM SPIRITS MODEL Gender Identity Not on file Sexual Orientation Not on file documented as of this encounter Plan of Treatment Upcoming Encounters Date Type Department Care Team (Late st Contact Info) Description 01/08/2025 11:20 AM CDT Office Visit [facility] - Endocrinology [id number] [place] [address], [address] [place] [address] [place] [address] [facility] [address] [place] [address] 02/10/2025 10:45 AM CDT Office [place] [facility] [place] [address] [address] [facility] [address] [place] [address] [place] [address] [address] [facility] [address] [place] [address] 11/16/2025 10:30 AM CDT Office Visit [facility] - FURNACE WORKER [address] [facility] [address] [place] [phone] Heath Hernandez MD [address] [facility] [address] [place] [address] documented as of this encounter Visit Diagnoses Not on filedocumented in this encounter Care Teams Polymer Materials Consultant Relationship Specialty Start Date End Date Reji Hernández MD [address] [place] [address] PCP - General 04/30/08 01/10/16 [place] [address] [facility] [address] [place] [address] PCP - General Internal Medicine 01/11/16 01/16/16 [place] [address] [facility] [address] [place] [address] PCP - General Internal Medicine 01/17/16 Reji Hernández MD [address] [place] [address] 01/11/16 01/16/16 [place] [address] [facility] [address] [place] [address] Internal Medicine 01/17/16 [place] [address] [address] [facility] [address] [place] [address] Nephrology 05/31/13 11/17/14 Vicki Mackay MD [address] [place] [address] Surgery 07/10/13 11/17/14 [place] [address] [place] [address] Endocrinology 11/18/14 [place] [address] [place] [address] Obstetrics and Gynecology 11/18/14 Cirilo Guzman MD [address] [facility] [address] [place] [address] Rheumatology 11/18/14 Marquise Peres MD [address] [place] [address] Obstetrics and Gynecology 04/11/1708/19 Vicki Mackay MD [address] [place] [address] Surgery 02/13/18 documented as of this encounter
--- OUTSIDE RECORDS SUMMARY | 2024-12-14 04:15 | XMS_ITS ---
Author Organization [facility] Address [address] [place], [place] [id number] Care Team Providers Care Construction Crew Member Name Role Phone Greta Early Unavailable [phone] Allergies No Known Allergies Medications Medication SIG (Take, Route, Frequency, Duration) Notes Start Date End Date Status Cosentyx Sensoready Pen 150 MG/ML Inject 1 pen (150mg) Subcutaneous on week 4 and then every 4 weeks thereafter for 84 days 11/27/2024 02/19/2025 Active Spironolactone 100 MG 1 tablet Orally On ce a day Active Cosentyx Sensoready Pen 150 MG/ML Inject 1 pen (150mg) Subcutaneous on week 0, 1, 2, and 3 11/27/2024 Active Estradiol 0.5 MG 1 tablet Orally Once a day Active Meloxicam 15 MG 1 tablet Orally Once a day Active metFORMIN HCl 500 MG 1 tablet with a vanessa l Orally Once a day Active NexIUM 40 MG 1 capsule 1/2 to 1 h our before morning meal Orally Once a day Active Medrol 4 MG 1 tablet with food o r milk Orally every 12 hrs Active Albuterol Sulfate 0.63 MG/3ML as directed Inhalation Activ e Social History Tobacco Use: Social History Observation Description Date Details (start date - stop date) Never Smoker NA - NA Sex Assigned At : Social History Observation Description Sex Assigned At Unknown Tobacco Control (Standard) Question Answer Notes Tobacco use: Nonsmoker Problems Problem Type SNOMED Code ICD Code Onset Dates Problem Status W/U Status Risk Notes Problem Rheumatoid arthritis (88642058) Rheumatoid arthritis, involving unspecified site, unspecified whether rheumatoid factor present (M06.9) Active confirmed Problem 279488575 Arthropathic psoriasis, unspecified (L40.50) Active confirmed Problem PsA (Psoriatic arthritis) (167566932) PSA (psoriatic arthritis) (L40.50) Active confirmed Problem Psoriasis (2554380) Psoriasis (L40.9) Active confirmed Problem Ankylosing spondylitis (4784576) (ankylosing spondylitis) (M45.9) Active confirmed Problem Osteoarthritis (294890179) OA (osteoarthritis ) (M19.90) Active confirmed 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 Problem Gastroesophageal reflux disease (045178661) GERD (gastroesophage al reflux disease) (K21.9) Active confirmed Problem Chronic fatigue syndrome (64779294) Chronic fatigue (R53.82) Active confirmed Problem Oral ulcer (38630472) Oral ulcer (K12.1) Active confirmed Problem 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) Active confirmed Problem Dry mouth (20926840) Dry mouth (R68.2) Active confirmed Problem Raised antinuclear antibody (225483649) Positive TANIA (antinuclear antibody) (R76.8) Active confirmed Vital Signs Height 63 in 11/26/2024 Weight 170 lbs 11/26/2024 BMI 30.11 kg/m2 11/26/2024 Height-cm 160.02 cm 11/26/2024 Weight-kg 77.11 kg 11/26/2024 Encounters Encounter Location Date Provider Diagnosis [address] [place], [place] [phone] 11/26/2024 Greta Espurvoa Arthropathic psoriasis, unspecified L40.50 ; Other jail (current) drug therapy Z79.899 and Routine health maintenance Z00.00 Assessments Encounter Date Diagnosis (ICD Code) Assessment Notes Treatment Notes Treatment Clinical Notes Section Notes 11/26/2024 Arthropathic psoriasis, unspecified (ICD-10 - L40.50) Ms. Page is a 54 year-old female with psoriatic arthritis, currently managed by Dr. Osuna. At this time, patient will begin Cosentyx. Patient will be monitored long wall mining machine tender for symptom control and side effects. LABS: [...] the office with any concerns. 11/26/2024 Other jail (current) drug therapy (ICD-10 - Z79.899) When [...] -combined-sched ule.pdf 11/26/2024 Other Plan Of Treatment Medication Medication Name Sig Start Date Stop Date Notes Cosentyx Sensoready Pen 150 MG/ML Inject 1 pen (150mg) Subcutaneous on week 4 and then every 4 weeks thereafter for 84 days 11/27/2024 02/19/2025 Cosentyx Sensoready Pen 150 MG/ML Inject 1 pen (150mg) Subcutaneous on week 0, 1, 2, and 3 11/27/2024 Treatment Notes Assessment Notes Arthropathic psoriasis, unspecified Ms. Page is a 54 year-old female with psoriatic arthritis, currently managed by Dr. Osuna. At this time, patient will begin Cosentyx. Patient will be monitored jail for symptom control and side effects. LABS: QuantiFERON-TB Gold (11/03/2024): Negative Hepatitis B Surface Antigen (11/03/2024): NR Psoriatic Arthritis is chronic in nature with periods of remission and flares. Flares can be triggered by stress, infections (group A strep), certain medications, and alcohol. Discussed Cosentyx can worsen Crohn's disease, immunosuppression, allergic reactions and infections. Instructed to call the office with any concerns. Other jail (current) drug therapy W hen on high-risk medications, patient must be vigilant [...] new skin lesions, or other unusual symptoms. Routine health maintenance https://www.c dc.gov/vaccines/schedules/downloa ds/adult/vhtja-kvbzoecq-cvczwkid.pdf Progress Notes * Colt PAGEOB:[birth year] (54 yo F)Acc No.[id number]:11/26/2024 Patient: Sienna HERNANDEZ Provider: Michael Early :1970 A ge:54 Y S ex:Female Date:11/26/2024 Address:[address] [place], [place] [address] Subjective: * Chief Complaints: * * HPI: T elemedicine: Ms. Page is a 54 year-old female with psoriatic arthritis, currently managed by Dr. Osuna. Patient's past medical history is notable for , OA, Humberto's syndrome, GERD, chronic fatigue, oral ulcers, lichen planopilaris, dry mouth, psoriasis, and positive TANIA. Family history notable for myasthenia gravis. RHEUMATOID HISTORY: The patient reports joint pain, swelling, and stiffness specifically in her neck, back, shoulder, elbows, hands, thumbs, hips, ankles, and feet. Previously, the patient has tried and failed Enbrel (2003, d/c due to lack of efficacy), MTX (2023, d/c due to GI upset), SSZ (, d/c due to lack of efficacy), LEF, and Remicade (ineffective). The patient does occasionally take OTC meds, including Ibuprofen, Tylenol, and Tylenol Arthritis. She reports use of meloxicam as needed. Patient reports visiting the urgent care in July 2024 due to cold. Patient was called to verify their medical status and their prescription status. At this time, there are no changes to our prescription plans. [facility] is assisting as a specialty team in monitoring their health in consult with the patient's power technician. Biologic/small molecule agents affect human immunology can put patients at risk for various infections and malignancies. Proper monitoring with lab tests and an updated vaccination profile can minimize these risks. A [facility] steam room attendant will be available to the patient for medication management. * Medical History: * Surgical History: * Hospitalization/Major Diagno stic Procedure: V isited urgent care due to cold 07/2024 * Family History: F ather: myasthenia gravis. * Social History: T obacco Use: T obacco Control (Standard) T obacco use: N onsmoker * Medications: T akingmetFORMIN HCl 500 MG Tablet 1 tablet with a meal Orally Once a day Medrol 4 MG Tablet 1 tablet with food or milk Orally every 12 hrs NexIUM 40 MG Capsule Delayed Release 1 capsule 1/2 to 1 hour before morning meal Orally Once a day Albuterol Sulfate 0.63 MG/3ML Nebulization Solution as directed Inhalation Spironolactone 100 MG Tablet 1 tablet Orally Once a day Estradiol 0.5 MG Tablet 1 tablet Orally Once a day Meloxicam 15 MG Tablet 1 tablet Orally Once a day Medication List reviewed and reconciled with the patientTaking metFORMIN HCl 500 MG Tablet 1 tablet with a meal Orally Once a day Taking Medrol 4 MG Tablet 1 tablet with food or milk Orally every 12 hrs Taking NexIUM 40 MG Capsule Delayed Release 1 capsule 1/2 to 1 hour before morning meal Orally Once a day Taking Albuterol Sulfate 0.63 MG/3ML Nebulization Solution as directed Inhalation Taking Spironolactone 100 MG Tablet 1 tablet Orally Once a day Taking Estradiol 0.5 MG Tablet 1 tablet Orally Once a day Taking Meloxicam 15 MG Tablet 1 tablet Orally Once a day Medication List reviewed and reconciled with the patient * Allergies: N .K.D.A.no[Allergies Verified] Objective: * Vitals: W t:170lbs, Wt-k.11 kg, Ht:63in, Ht-cm: 160.02 cm, BMI:30.11Index, Body Surface Area: 1.85. Assessment: * Assessment: 1. A rthropathic psoriasis, unspecified - L40.50 2 . O ther long wall mining machine tender (current) drug therapy - Z79.899 3 . [facility] health maintenance - Z00.00 ? Plan: * Treatment: 2. O ther long wall mining machine tender (current) drug therapy Notes:When on high-risk medications, patient must be vigilant [...] new skin lesions, or other unusual symptoms. 3. [facility] Notes:https://www.cdc.gov/vaccines/schedul es/downloads/adult/keliw-nnvjaqlz-hdfkvpsd. pdf * Procedure Codes: * Billing Information: * Visit Code: * Procedure Codes: Care Plan Details* * Sign off status: Completed true * Provider: Michael Early Date: 11/26/2024 Generated for Jonny good/Mira/Giorgio on: 12/14/2024 04:15 AM CDT History and Physical Notes * HPI (History of Present Illness) Category Sub-Category Detail Notes Category Not es Telemedicine Ms. Page is a 54 year-old female with psoriatic arthritis, currently managed by Dr. Osuna. Patient's past medical history is notable for , OA, Fairchance's syndrome, GERD, chronic fatigue, oral ulcers, lichen planopilaris, dry mouth, psoriasis, and positive TANIA. Family history notable for myasthenia gravis. RHEUMATOID HISTORY: The patient reports joint pain, swelling, and stiffness specifically in her neck, back, shoulder, elbows, hands, thumbs, hips, ankles, and feet. Previously, the patient has tried and failed Enbrel (2003, d/c due to lack of efficacy), MTX (2023, d/c due to GI upset), SSZ (, d/c due to lack of efficacy), LEF, and Remicade (ineffective). The patient does occasionally take OTC meds, including Ibuprofen, Tylenol, and Tylenol Arthritis. She reports use of meloxicam as needed. Patient reports visiting the urgent care in July 2024 due to cold. Patient was called to verify their medical status and their prescription status. At this time, there are no changes to our prescription plans. [facility] is assisting as a specialty team in monitoring their health in consult with the patient's power technician. Biologic/small molecule agents affect human immunology can put patients at risk for various infections and malignancies. Proper monitoring with lab tests and an updated vaccination profile can minimize these risks. A [facility] steam room attendant will be available to the patient for medication management.
--- OUTSIDE RECORDS SUMMARY | 2024-12-14 04:15 | XMS_ITS ---
Author Organization [facility] Address [address] [place], [place] [address] Care Team Providers Care B Operator Name Role Phone Jaleel CONROY, Abelino Primary Care Provider UnavailClarisa Sykes Unavailable [phone] REASON FOR VISIT Cancel Appointment Request Encounters Encounter Location Date Provider Diagnosis [facility] [address], [address] [place], [place] [address] 12/02/2024 Clarisa Arreaga PLAN OF TREATMENT No Information
--- OUTSIDE RECORDS SUMMARY | 2024-12-14 04:15 | XMS_ITS | Encounter Summary ---
Author Organization [facility] Health Address [address] [place] [address] Care Team Providers Care Side Boss Name Role Phone Reji Hernández MD Primary Care Provider [phone] Abelino Marmolejo MD Primary Care Provider [phone] Abelino Marmolejo MD Primary Care Provider [phone] Reji Hernández MD Unavailable [phone] Abelino Marmolejo MD Unavailable [phone] Ofe Savage MD Unavailable [phone] Vicki Mackay MD Unavailable Hansa Cheng MD Unavailable [phone] Tereso Gardner MD Unavailable [phone] Cirilo Guzman MD Unavailable [phone] Marquise Peres MD Unavailable [phone] Vicki Mackay MD Unavailable Encounter Details Date Type Department Care Team (Late st Contact Info) Description 01/08/2012 [facility] Reji Hernández MD [address] [place] [address] Social History Tobacco Use Types Packs/Day Years Used Date Smoking Tobacco: Former Cigarettes Q uit: 04/28/2003 Alcohol Use Standard Drinks/Week Comments No 0 (1 standard drink = 0.6 oz pur e alcohol) Comments No Sex and Gender Information Value Date Recorded Sex Assigned at Not on file Legal Sex Female 6:59 AM HEALTHCARE RECRUITER Gender Identity Not on file Sexual Orientation Not on file documented as of this encounter Plan of Treatment Upcoming Encounters Date Type Department Care Team (Late st Contact Info) Description 01/08/2025 11:20 AM CDT Office Visit [facility] - Endocrinology [id number] [place] [address], [address] [place] [address] [place] [address] [facility] [address] [place] [address] 02/10/2025 10:45 AM CDT Office Visit [facility] [place] [address] [address] [facility] [address] [place] [address] [place] [address] [address] [facility] [address] [place] [address] 11/16/2025 10:30 AM CDT Office Visit [facility] - CHIEF CONTRACT OFFICER [address] [facility] [address] [place] [address] Heath Hernandez MD [address] [facility] [address] [place] [address] documented as of this encounter Visit Diagnoses Not on filedocumented in this encounter Care Teams Side Boss Relationship Specialty Start Date End Date Reji Hernández MD [address] [place] [address] PCP - General 04/30/08 01/10/16 [place] [address] [facility] [address] [place] [address] PCP - General Internal Medicine 01/11/16 01/16/16 [place] [address] [facility] [address] [place] [address] PCP - General Internal Medicine 01/17/16 Reji Hernández MD [address] [place] [address] 01/11/16 01/16/16 [place] [address] [facility] [address] [place] [address] Internal Medicine 01/17/16 [place] [address] [facility] [address] [place] [address] Nephrology 05/31/13 11/17/14 Vicki Mackay MD [address] [place] [address] Surgery 07/10/13 11/17/14 [place] [address] [place] [address] Endocrinology 11/18/14 [place] [address] [place] [address] Obstetrics and Gynecology 11/18/14 Cirilo Guzman MD [address] [facility] [address] [place] [address] Rheumatology 11/18/14 Marquise Peres MD [address] [place] [address] Obstetrics and Gynecology 04/11/1708/19 Vicki Mackay MD [address] [place] [address] Surgery 02/13/18 documented as of this encounter
--- OUTSIDE RECORDS SUMMARY | 2024-12-14 04:15 | XMS_ITS ---
Author Organization [facility] Address [address] [place], [place] [address] Care Team Providers Care Clerk Typist Name Role Phone Jaleel CONROY, Abelino Primary Care Provider Clarisa Castro Unavailable [phone] ALLERGIES No Known Allergies RESULTS Component Value Reference Range Notes AST (SGOT) Reviewed date:11/19/2024 08:09:04 AM Interpretation: Performing Lab:[facility] Phone - [phone], Director - Kelvin Notes/Report: AST (SGOT) 22 0-40 IU/L Creatinine, Serum Reviewed date:11/19/2024 08:09:04 AM Interpretation: Performing Lab:[facility] Phone - [phone], Director - Kelvin Notes/Report: Creatinine 0.84 0.57-1.00 mg/dL eGFR 83 >59 mL/min/1.73 ALT (SGPT) Reviewed date:11/19/2024 08:09:04 AM Interpretation: Performing Lab:[facility], Phone - [phone], Director - Kelvin Notes/Report: ALT (SGPT) 20 0-32 IU/L CBC With Differential/Platel et Reviewed date:11/19/2024 08:09:04 AM Interpretation: Performing Lab:[facility], Phone - [phone], Director - [facility] Notes/Report: WBC 6.2 3.4-10.8 x10E3/uL RBC [...] Westergren Reviewed date:11/19/2024 08:09:04 AM Interpretation: Performing Lab:[email or web address] [place], [address] [place] [address], Phone - [phone], Director - [facility] Notes/Report: Sedimentation Rate-Jasonergren 15 0-40 mm/hr C-Reactive Protein, Quant Reviewed date:11/19/2024 08:09:04 AM Interpretation: Performing Lab:[email or web address] [place], [address] [facility], Phone - [phone], Director [facility] Notes/Report: C-Reactive Protein, Quant 2 0-10 mg/L REASON FOR VISIT The patient is here for a scheduled rheumatology follow-up MEDICATIONS Medication SIG (Take, Route, Frequency, Duration) Notes Start Date End Date Status NexIUM 40 mg 1 cap(s) orally once a day Active Singulair 10 mg 1 tab(s) orally once a day (in the evening) prn Active albuterol CFC free 90 mcg/inh 2 puff(s) inhaled PRN Active estrogen Active cyclobenzaprine 10 mg 1 tab(s) orally at night as needed Active metFORMIN 500 mg 1 tab(s) orally 2 ti mes a day Active meloxicam 15 mg 1 tab(s) orally once a day Active Breo Ellipta PRN Active Diclofenac Sodium sodium 75 mg 1 tab(s) orally 2 times a day 10/09/2024 Active TraMADol Hydrochloride 50 mg 1 tab(s) orally every 8 hours as needed 07/09/2023 Active Remicade 100 mg 5 mg/kg intravenousl y every 6 weeks Active Arava 20 mg 1 tab(s) orally once a day for 30 day(s) 11/18/2024 Active tramadol 50 mg 1 tab(s) orally ever y 8 hours prn Active VITAL SIGNS BMI 27.44 kg/m2 11/18/2024 Blood pressure systolic 145 mm Hg 11/19/19 25 Blood pressure diastolic 91 mm Hg 025 Heart Rate 86 /min 11/18/2024 Height 66 in 11/18/2024 Weight 170 lbs 11/18/2024 Encounters Encounter Location Date Provider Diagnosis [facility] [address] [place] [address], [address] [place], [place] [id number] 11/18/2024 Clarisa Arreaga Ankylosing spondylit is M45.9 and Other snf (current) drug therapy Z79.899 ASSESSMENTS Encounter Date Diagnosis Assessment Notes Treatment Notes Treatment Clinical Notes Section Notes 11/18/2024 Ankylosing spondylitis (ICD-10 - M45.9) I [...] care physician for coordination of care. 11/18/2024 Other snf (current) drug therapy (ICD-10 - Z79.899) I [...] primary care physician for coordination of care. PLAN OF TREATMENT Medication Medication Name Sig Start Date Stop Date Notes NexIUM 40 mg 1 cap(s) orally once a day Singulair 10 mg 1 tab(s) orally once a day (in the evening) prn albuterol CFC free 90 mcg/inh 2 puff(s) inhaled PRN estrogen cyclobenzaprine 10 mg 1 tab(s) orally at night as needed metFORMIN 500 mg 1 tab(s) orally 2 ti mes a day meloxicam 15 mg 1 tab(s) orally once a day Breo Ellipta PRN Diclofenac Sodium sodium 75 mg 1 tab(s) orally 2 times a day 10/09/2024 Remicade 100 mg 5 mg/kg intravenousl y every 6 weeks Arava 20 mg 1 tab(s) orally once a day for 30 day(s) 11/18/2024 tramadol 50 mg 1 tab(s) orally ever y 8 hours prn Next Appt Details Follow Up: 4 weeks Amanda Brown: Progress Notes * Examination Category Sub-Category Detail Notes Category Not es Rheumatology Lumbar spine: Right low back TTP General Constitutional: No acute distress HEENT: Normal sclerae and c onjunctivae, Neck TTP Cardiovascular Normal peripheral pu lsations, No edema Abdomen: soft, no organomegal y or masses Skin: No cutaneous lesions . No subcutaneous nodules noted in the 4 extremities Neurological: No focal neurologica l findings Psych: Alert, oriented x 3, Normal affect Musculoskeletal: Normal strength. No muscle atrophy Joint Exam Shoulders No swelling. No tenderness. NROM. Bilateral trochanter TTP Elbows No swelling. No tend erness. NROM. Wrists No swelling. No tend erness. NROM. Hips No tenderness, haja l ROM, no instability or deformity Knees No swelling, no tend erness, NROM. , Bilateral crepitus with motion Ankles No swelling, no tend erness, NROM., No instability or deformity. All MCPs No swelling, no tend erness, no deformity unless noted below. All PIPs No swelling, no tend erness, no deformity unless noted below. All DIPs No swelling, no tend erness, no deformity unless noted below. All MTPs No swelling, no tend erness, NROM, no deformity unless noted below. History and Physical Notes * HPI (History of Present Illness) Category Sub-Category Detail Notes Category Not es Spine Low Back Pain Patient is her e for a follow up for treatment of Ankylosing spondylitis. She has continued on Remicade infusions and tolerating it well. Today she complains of pain on her left elbow with swelling and soreness with a nodule on inner right forearm. She reports pain in her feet and ankles. Radiation of Pain Numbness/tingling joint pain joint swelling morning stiffness Less than 30 minutes Medication problems fatigue infections swollen glands fever cough dyspnea Chest pain Physical Examination Category Sub-Category Detail Notes Section Note s MDHAQ Summary Function (0-10):: 4 Pain (0-10):: 6 Patient Global Assessment of Disease Activity (0 -10):: 5 RAPID3 Score (0-30):: 15 Physician Global Assessment of Disease Activity (0-10):: 8 Prognosis Good w/tx Erosive Damage No
[2024-12-14] MEDS: MORPHINE SULFATE (*CRX) 2 MG/ML INJ IV PUSH (04:25)
[2024-12-14 04:31] LABS: Hematocrit 45.7 % (37.0-47.0); Hemoglobin 15.3 g/dL (12.0-15.0); Immature Granulocyte Percent A 0.5 % (0-0.5); Lymphocytes Absolute Auto 1.88 K/mm3 (0.9-3.2); Mean Corpuscular HGB Conc 33.5 g/dl (32-36); Mean Corpuscular Hemoglobin 29.7 pg (26-34); Mean Corpuscular Volume 88.6 fl (80-100); Nucleated Red Blood Cells Absolute Auto 0.000 K/mm3 (0.0-0.012); Nucleated Red Blood Cells Perc 0.0 % (0.0-0.2); Platelet Count Result 376 k/mm3 (150-375); Red Blood Count 5.16 M/mm3 (4.2-5.4); White Blood Count 15.8 K/mm3 (4.5-10.0)
--- OUTSIDE RECORDS SUMMARY | 2024-12-14 04:38 | XMS_ITS ---
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
--- OUTSIDE RECORDS SUMMARY | 2024-12-14 04:38 | XMS_ITS | Clinical Summary ---
Author Organization [facility] Address [address] [place] [address] Care Team Providers Care Geriatric Nursing Assistant Name Role Phone Abelino Marmolejo MD Primary Care Provider Abelino Marmolejo MD Unavailable [phone] Hansa Cheng MD Unavailable [phone] Cirilo Guzman MD Unavailable [phone] Vicki Mackay MD Unavailable [phone] Source Comments [facility],non-owned Affiliates and Associated Physician Practices is amultiple site organization consisting of ambulatory clinics and hospital sitesin [place], [place], [place] and [place]. This disclosure is being madepursuant to the Care Everywhere program and may not contain all information available regarding this patient. 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 Extensive workup showed evidence for adrenal adenoma. Surgery at 09/2013; had cortisol producing tumor. Encounters Date Type Department Care Team Description 11/10/2024 10:30 AM CDT Office Visit [facility] - AUTOMATION AND CONTROLS MANAGER [address] [place] [address] Heath Hernandez MD LOCO III (vulvar intraepithelial neoplasia III) (Primary Dx) 11/10/2024 Travel 10/18/2024 Refill [facility] [place] [address] [address] , [address] [address] Nas Asencio MD Refill Request from Last [...] on file Legal Sex Female 6:59 AM MERGERS AND ACQUISITIONS ASSOCIATE Gender Identity Not on file Sexual Orientation Not on file Last Filed Vital Signs Vital Sign Reading Time Taken Comments Blood Pressure 124/72 11/10/2024 9:58 AM CDT Pulse 101 06/26/2024 10:23 AM MERGERS AND ACQUISITIONS ASSOCIATE Temperature 36.5 C (97.7 F) 03/25/2024 7:27 AM MERGERS AND ACQUISITIONS ASSOCIATE Respiratory Rate 23 03/25/2024 7:45 AM MERGERS AND ACQUISITIONS ASSOCIATE Oxygen Saturation 99% 06/26/2024 10:23 AM MERGERS AND ACQUISITIONS ASSOCIATE Inhaled Oxygen Concentration - - Weight 78 kg (172 lb) 11/10/2024 9:58 AM CDT Height 160 cm (5' 3) 11/10/2024 9:58 AM CDT Body Mass Index 30.47 11/10/2024 9:58 AM CDT Plan of Treatment Upcoming Encounters Date Type Department Care Team (Late st Contact Info) Description 01/08/2025 11:20 AM CDT Office Visit [facility] - Endocrinology [address] [place] [address], [address] [place] [address] Hansa Cheng MD [address] [place] [address] [address] [place] [address] 02/10/2025 10:45 AM CDT Office Visit [facility] [place] [address] [address], [facility] [address] [place] [address] [place] [address] [address] [facility] [address] [place] [address] 11/16/2025 10:30 AM CDT Office Visit [facility] - AUTOMATION AND CONTROLS MANAGER [address] [facility] [address] [place] [address] Heath Hernandez MD [address] [facility] [address] [place] [address] Health Maintenance Due Date Last Done Comments [...] this topic Medical Devices Implanted Type Area Ice Skater Device Identifier Shelf Expiration Date Model / Serial / Lot Perfix Plug Large Implanted:Qty: 1 on 05/03/2016 by Jaylan Narvaez MD at [facility] Left: [employer] 10/15/2021 [id number] / / [id number] Procedures Procedure Name Priority Date/Time Associated Diagnosis Comments PAP IMAGE-GUIDED Routine 11/10/2024 10:4 8 AM CDT LOCO III (vulvar intraepithelial neoplasia III) BASIC METABOLIC PANEL (CALCIUM TOTAL) Routine 06/21/2024 9:04 AM MERGERS AND ACQUISITIONS ASSOCIATE Secondary adrenal insufficiency Essential hypertension Hyperkalemia MAMMO [...] CDT) Case Report Gynecologic Cytology Report Case: [id number] Authorizing Provider: Heath Hernandez MD Collected: 11/10/2024 10:48 AM Ordering Location: [facility] - Received: 11/10/2024 10:49 AM AUTOMATION AND CONTROLS MANAGER First Screen: Perico Barker CT(ASCP) Specimen: THINPREP [...] 9:40 AM CDT [facility] Interpretation HOSE HANDLER Negative for intraepithelial lesion or malignancy. 11/12/2024 9:40 AM CDT [facility] at 0940 CDT Pap Footnote The Pap Smear is a screening test. False positive and false negative results occur. Negative results do not preclude abnormalities, thus clinical correlation is required. This specimen was evaluated by the ThinPrep Imaging System along with an additional manual rescreening by a labor relations specialist and/or pathologist. 11/12/2024 9:40 AM CDT [facility] Embedded Images 9:40 AM CDT [facility] Pathology/Cytolo gy ENTIRE VAGINA / Unknown Collection / Unknown 11/10/2024 10:48 AM CDT 11/10/2024 10:49 AM CDT Heath Hernandez MD LAB - PATHOLOGY/CYTOLOGY ORDERAB LES Final Result Performing Organization Address City/State/[facility] Co de Phone Number [facility] [phone] * BASIC METABOLIC PANEL (CALCIUM TOTAL) (06/21/2024 9:04 AM MERGERS AND ACQUISITIONS ASSOCIATE) Glucose 91 70 - 99 mg/dL [facility] [...] BLOOD SPECIMEN / Unknown 06/21/2024 9:04 AM MERGERS AND ACQUISITIONS ASSOCIATE 06/21/2024 Narrative [facility] ACCOUNT BILL - 06/22/2024 9:35 AM MERGERS AND ACQUISITIONS ASSOCIATE Performed at: - [facility] [address] [id number] Hot Box Spotter: Frankie Henson PhD, Phone: [phone] us Hansa Cheng MD LAB - CHEMISTRY ORDERABL ES Final Result [facility] ACCOUNT BILL [address] [place] [address] * Mammo Bilat Screening W Micah (01/01/2024 11:29 AM CDT) Anatomical Region Laterality [...] detected Not detected 11/16/2023 7:35 AM CDT [facility] High Risk Human Papilloma Interp 11/16/2023 7:35 AM CDT [facility] Comment:High Risk Human Isiah lloma Virus was Not Detected. Pathology/Cytolo gy MISCELLANEOUS SAMPLES / Unknown 11/12/2023 9:30 AM CDT 11/13/2023 12:32 PM CDT Narrative [facility] - 11/16/2023 7:35 AM CDT [...] LAB - MICROBIOLOGY ORDERABLES Fi nal Result [facility] [address] [phone] * ENDOSCOPY, COLON, DIAGNOSTIC (08/08/2023 10:23 AM CDT) Report Endoscopy POC _ Patient Name: Chao Page Procedure Date: 08/08/2023 10:23 AM Date of : 1970 Admit Type: Outpatient Age: 53 Gender: Female Attending MD: Nas Asencio MD, [id number] _ Procedure: Colonoscopy Indications: Last colonoscopy: 2016, [...] by the physician, the nurse and the blending machine feeder in the procedure room. Mental Status Examination: [...] the patient. Procedure Code(s): --- Professional --- 08347, 59, Colonoscopy, flexible; with control of bleeding, any method 87366, Colonoscopy, flexible; with biopsy, single or multiple --- Technical --- 81942, 59, Colonoscopy, flexible; with control of bleeding, any method 39383, Colonoscopy, flexible; with biopsy, single or multiple Diagnosis Code(s): --- Professional --- D12.3, Benign neoplasm of transverse colon (hepatic flexure or splenic flexure) K92.1, Melena (includes Hematochezia) --- Technical --- D12.3, Benign neoplasm of transverse colon (hepatic flexure or splenic flexure) K92.1, Melena (includes Hematochezia) CPT copyright 2020 [employer]. All rights reserved. The codes documented in this report are preliminary and upon access lead review may be revised to meet current compliance requirements. Dr. Nas Asencio MD Nas Asencio MD 08/08/2023 1:13:27 PM This report has been signed electronically. Number of Addenda: 0 Note Initiated On: 08/08/2023 10:23 AM [facility] END[facility] 08/08/2023 10:2 3 AM CDT us Alyssa Toure CLIENT CUSTOMER MANAGER-SENIOR DENTIST GI PROCEDURE ORDERABLE S Edited Result - Final [facility] [place] [address] * HEPATITIS C ANTIBODY (01/09/2023 10:14 AM [...] Resulting Agency Comment [facility] [address] [facility] [phone] us Yuan Garcia MD LAB - CHEMISTRY ORDERABLES Final Result [facility] INSURANCE BILL [address] [place] [address] * LIPID PROFILE (LIPID PANEL) (02/28/2011 1:28 [...] PM CDT Narrative Resulting Agency Comment [facility] [address] [facility] [phone] us Reji Hernández MD LAB - CHEMISTRY ORDERABLE S Final Result [facility] ACCOUNT BILL [address] [place] [address] from Last 3 Months or Most Recently Relevant to Health Maintenance [facility] Advance Directives * Full Code (Latest Code Status on File) Date Activated Date Inactivated Comments 11/03/2020 3:41 PM 11/06/2020 1:04 PM * Full Code Date Activated Date Inactivated Comments 11/03/2020 11:14 AM 11/03/2020 3:41 PM Care Teams Geriatric Nursing Assistant Relationship Specialty Start [place] [address] [facility] [address] [place] [address] PCP - General Internal Medicine 01/17/16 [place] [address] [facility] [address] [place] [address] Internal Medicine 01/17/16 [place] [address] [facility] [address] [place], [place] [id number] Endocrinology 11/18/14 Cirilo Guzman MD [address] [facility] [address] [place] [address] Rheumatology 11/18/14 Vicki Mackay MD [address] [place] [address] Surgery 02/13/18
--- OUTSIDE RECORDS SUMMARY | 2024-12-14 04:38 | XMS_ITS | Encounter Summary ---
Author Organization [facility] Address [address] [place] [address] Care Team Providers Care Store Administrator Name Role Phone Abelino Marmolejo MD Primary Care Provider Abelino Marmolejo MD Unavailable [phone] Hansa Cheng MD Unavailable Tereso Gardner MD Unavailable [phone] Cirilo Guzman MD Unavailable [phone] Marquise Peres MD Unavailable [phone] Vicki Mackay MD Unavailable [phone] Encounter Details Date Type Department Care Team (Late st Contact Info) Description 01/20/2016 [facility] [address] [place] [address] [place] [address] 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 Gender Identity Not on file Sexual Orientation Not on file documented as of this encounter Plan of Treatment Upcoming Encounters Date Type Department Care Team (Late st Contact Info) Description 01/08/2025 11:20 AM CDT Office Visit [facility] - Endocrinology [address], [address] [place] [address] [place] [address] [place] [address] 02/10/2025 10:45 AM CDT Office [place] [facility] [place] [address] [facility] [address] [place] [address] [place] [address] [address] [facility] [address] [place] [address] 11/16/2025 10:30 AM CDT Office Visit [facility] - DEAF AND HARD OF HEARING TEACHER [address] [facility] [address] [place] [address] Heath Hernandez MD [address] [facility] [address] [place] [address] documented as of this encounter Visit Diagnoses Not on filedocumented in this encounter Care Teams Store Administrator Relationship Specialty Start [place] [address] [address] [place] [address] PCP - General Internal Medicine 01/17/16 [place] [address] [place] [address] Internal Medicine 01/17/16 [place] [address] [place] [address] Endocrinology 11/18/14 [place] [address] [place] [address] Obstetrics and Gynecology 11/18/14 Cirilo Guzman MD [address] [facility] [address] [place] [address] Rheumatology 11/18/14 Marquise Peres MD [address] [place] [address] Obstetrics and Gynecology 04/11/1708/19 Vicki Mackay MD [address] [place] [address] Surgery 02/13/18 documented as of this encounter
--- OUTSIDE RECORDS SUMMARY | 2024-12-14 04:39 | XMS_ITS | Clinical Summary ---
Author Organization [facility] Address [address] [place] [address] Care Team Providers Care Bread Icer Name Role Phone Abelino Marmolejo MD Primary Care Provider Allergies No known active allergies Medications albuterol [...] 10/06/2022 Surgical History Surgery Date Site/Laterality Comments CO UNLISTED PROCEDURE ABDOMEN PERITONEUM & OMENTUM Hernia Repair - (Added by TW Conv) FOOT SURGERY Foot Surgery - (Added by TW Conv) CO INJECTION AA&/STRD ILIOINGUINAL IH NERVES Nerve Block Ilioinguinal - excision (Added by TW Conv) ADRENALECTOMY Adrenalectomy - (Added by TW Conv) CO TOTAL ABDOMINAL HYSTERECT W/WO RMVL TUBE OVARY Hysterectomy - (Added by TW Conv) CO SALPINGO-OOPHORECTOMY COMPL/PRTL UNI/BI SPX Salpingo-oophorectomy Unilateral - [...] - (Added by TW Conv) Renovascular hypertension [place] scular hypertension - (Added by TW Conv) [...] on file Legal Sex Female 5:05 AM AFTER SCHOOL CAREGIVER Gender Identity Not on file Sexual Orientation [...] 73 kg (161 lb) 06/25/2024 1:04 PM AFTER SCHOOL CAREGIVER Height 160 cm (5' 3) 06/25/2024 1:04 PM AFTER SCHOOL CAREGIVER Body Mass Index 28.52 06/25/2024 1:04 PM AFTER SCHOOL CAREGIVER Plan of Treatment Health Maintenance Due Date [...] - Td or Tdap) 08/29/2031 08/28/2021 Insurance [facility] Care Teams Bread Icer Relationship Specialty [place] [address] [address] PCP - General 10/17/16
--- OUTSIDE RECORDS SUMMARY | 2024-12-14 04:39 | XMS_ITS | Clinical Summary ---
Author Organization [facility] Address [address] [place] [address] Care Team Providers Care Smoked Meat Preparer Name Role Phone Unavailable Primary Care Provider Unavailabl e Encounters Date Type Department Care Team Description 12/03/2024 External Device Data ST[facility] ABSTRACTION Provider, Abstract 12/02/2024 External Device Data [facility] ABSTRACTION Provider, Abstract 11/04/2024 1:15 PM CDT [facility] [address] [address] Mariah Moffett, DPM Primary osteoarthritis, right ankle and foot 11/04/2024 12:30 PM CDT [facility] [address] [address] Mariah Moffett, DPM Primary osteoarthritis, left ankle and foot 11/04/2024 11:40 AM CDT [facility] [address] [address] Mansoor Osuna MD Multiple joint pain 11/04/2024 External Device Data [facility] ABSTRACTION Provider, Abstract 10/09/2024 10:30 AM CDT [facility] [address] [address] Stephanie Núñez NP Low back pain; Knee [...] on file Legal Sex Female 2:52 AM LABOR EMPLOYMENT ASSOCIATE Gender Identity Not on file Sexual [...] overlying high-grade articular cartilage loss. Mariah Moffett [facility] MR ORDERABLES Final Result * MRI [...] No acute abnormality in the bilateral knees. [facility] ORDER[facility]LES Fi nal Result * [...] No acute abnormality in the bilateral knees. [facility] ORDER[facility]LES Fi nal Result * [...] nal Result from Last 3 Months Insurance [facility] [employer] ACCESS
--- OUTSIDE RECORDS SUMMARY | 2024-12-14 04:39 | XMS_ITS | Referral Summary ---
Author Organization [facility] Address [address] [place] [address] Care Team Providers Care Machining Associate Name Role Phone Abelino Marmolejo MD Primary Care Provider [phone] Allergies No known active allergies Medications albuterol [...] on file Legal Sex Female 5:05 AM FIRE AND EXPLOSION INVESTIGATOR Gender Identity Not on file Sexual Orientation [...] 73 kg (161 lb) 06/25/2024 1:04 PM FIRE AND EXPLOSION INVESTIGATOR Height 160 cm (5' 3) 06/25/2024 1:04 PM FIRE AND EXPLOSION INVESTIGATOR Body Mass Index 28.52 06/25/2024 1:04 PM FIRE AND EXPLOSION INVESTIGATOR Plan of Treatment Not on file Insurance [facility] Care Teams Machining Associate Relationship Specialty Start [place] [address] [address] PCP - General 10/17/16
--- OUTSIDE RECORDS SUMMARY | 2024-12-14 04:39 | XMS_ITS | Encounter Summary ---
Author Organization [facility] Address [address] [place] [address] Care Team Providers Care Dynamite Shooter Name Role Phone Reji Hernández MD Primary Care Provider [phone] Abelino Marmolejo MD Primary Care Provider [phone] Abelino Marmolejo MD Primary Care Provider [phone] Reji Hernández MD Unavailable [phone] Abelino Marmolejo MD Unavailable [phone] Ofe Svaage MD Unavailable Vicki Mackay MD Unavailable Hansa Cheng MD Unavailable Tereso Gardner MD Unavailable Cirilo Guzman MD Unavailable [phone] Marquise Peres MD Unavailable [phone] Vicki Mackay MD Unavailable [phone] Encounter Details Date Type Department Care Team (Late st Contact Info) Description 01/14/2013 [facility] Luke Brandon MD [address] [place] [address] Social History Tobacco Use Types Packs/Day Years Used Date Smoking Tobacco: Former Cigarettes Q uit: 04/28/2003 Alcohol Use Standard Drinks/Week Comments No 0 (1 standard drink = 0.6 oz pur e alcohol) Comments No Sex and Gender Information Value Date Recorded Sex Assigned at Not on file 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 Gender Identity Not on file Sexual Orientation Not on file documented as of this encounter Plan of Treatment Upcoming Encounters Date Type Department Care Team (Late st Contact Info) Description 01/08/2025 11:20 AM CDT Office Visit [facility] - Endocrinology [address] [place] [address], [address] [place] [address] [place] [address] [facility] [address] [place] [address] 02/10/2025 10:45 AM CDT Office [place] [facility] [place] [address] [address] [facility] [address] [place] [address] [place] [address] [address] [facility] [address] [place] [address] 11/16/2025 10:30 AM CDT Office Visit [facility] - GROUP CAPTAIN [address] [facility] [address] [place] [address] Heath Hernandez MD [address] [facility] [address] [place] [address] documented as of this encounter Visit Diagnoses Not on filedocumented in this encounter Care Teams Dynamite Shooter Relationship Specialty Start Date End Date Reji Hernández MD [address] [place] [address] PCP - General 04/30/08 01/10/16 [place] [address] [facility] [address] [place] [address] PCP - General Internal Medicine 01/11/16 01/16/16 [place] [address] [facility] [address] [place] [address] PCP - General Internal Medicine 01/17/16 Reji Hernández MD [address] [place] [address] 01/11/16 01/16/16 [place] [address] [facility] [address] [place] [address] Internal Medicine 01/17/16 [place] [address] [address] [facility] [address] [place] [address] Nephrology 05/31/13 11/17/14 Vicki Mackay MD [address] [place] [address] Surgery 07/10/13 11/17/14 [place] [address] [place] [address] Endocrinology 11/18/14 [place] [address] [place] [address] Obstetrics and Gynecology 11/18/14 Cirilo Guzman MD [address] [facility] [address] [place] [address] Rheumatology 11/18/14 Marquise Peres MD [address] [place] [address] Obstetrics and Gynecology 04/11/1708/19 Vicki Mackay MD [address] [place] [address] Surgery 02/13/18 documented as of this encounter
--- OUTSIDE RECORDS SUMMARY | 2024-12-14 04:39 | XMS_ITS | Encounter Summary ---
Author Organization [facility] Address [address] [place] [address] Care Team Providers Care Formula Maker Name Role Phone Reji Hernández MD Primary Care Provider [phone] Abelino Marmolejo MD Primary Care Provider [phone] Abelino Marmolejo MD Primary Care Provider [phone] Reji Hernández MD Unavailable [phone] Abelino Marmolejo MD Unavailable [phone] Ofe Savage MD Unavailable [phone] Vicki Mackay MD Unavailable [phone] Hansa Cheng MD Unavailable Tereso Gardner MD Unavailable Cirilo Guzman MD Unavailable [phone] Marquise Peres MD Unavailable [phone] Vicki Mackay MD Unavailable Encounter Details Date Type Department Care Team (Late st Contact Info) Description 05/08/2013 [facility] [address] [address] [address] Social History Tobacco Use Types Packs/Day Years Used Date Smoking Tobacco: Former Cigarettes Q uit: 04/28/2003 Alcohol Use Standard Drinks/Week Comments No 0 (1 standard drink = 0.6 oz pur e alcohol) Comments No Sex and Gender Information Value Date Recorded Sex Assigned at Not on file 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 Gender Identity Not on file Sexual Orientation Not on file documented as of this encounter Plan of Treatment Upcoming Encounters Date Type Department Care Team (Late st Contact Info) Description 01/08/2025 11:20 AM CDT Office Visit [facility] - Endocrinology [address] [place] [address], [address] [place] [address] [place] [address] [facility] [address] [place] [address] 02/10/2025 10:45 AM CDT Office [place] [address] [address] [facility] [address] [place] [address] [place] [address] [address] [facility] [address] [place] [address] 11/16/2025 10:30 AM CDT Office Visit [facility] - PUBLIC HEALTH INFORMATICIAN [address] [place] [facility] [address] [place] [address] Heath Hernandez MD [address] [facility] [address] [place] [address] documented as of this encounter Visit Diagnoses Not on filedocumented in this encounter Care Teams Formula Maker Relationship Specialty Start Date End Date Reji Hernández MD [address] [place] [address] PCP - General 04/30/08 01/10/16 [place] [address] [facility] [address] [place] [address] PCP - General Internal Medicine 01/11/16 01/16/16 [place] [address] [facility] [address] [place] [address] PCP - General Internal Medicine 01/17/16 Reji Hernández MD [address] [place] [address] 01/11/16 01/16/16 [place] [address] [facility] [address] [place] [address] Internal Medicine 01/17/16 [place] [address] [address] [facility] [address] [place] [address] Nephrology 05/31/13 11/17/14 Vicki Mackay MD [address] [place] [address] Surgery 07/10/13 11/17/14 [place] [address] [place] [address] Endocrinology 11/18/14 [place] [address] [place] [address] Obstetrics and Gynecology 11/18/14 Cirilo Guzman MD [address] [facility] [address] [place] [address] Rheumatology 11/18/14 Marquise Peres MD [address] [place] [address] Obstetrics and Gynecology 04/11/1708/19 Vicki Mackay MD [address] [place] [address] Surgery 02/13/18 documented as of this encounter
--- OUTSIDE RECORDS SUMMARY | 2024-12-14 04:39 | XMS_ITS | Encounter Summary ---
Author Organization [facility] Address [address] [place] [address] Care Team Providers Care Marine Surveyor Name Role Phone Reji Hernández MD Primary Care Provider [phone] Abelino Marmolejo MD Primary Care Provider [phone] Abelino Marmolejo MD Primary Care Provider [phone] Reji Hernández MD Unavailable [phone] Abelino Marmolejo MD Unavailable [phone] Ofe Saavge MD Unavailable [phone] Vicki Mackay MD Unavailable Hansa Cheng MD Unavailable Tereso Gardner MD Unavailable [phone] Cirilo Guzman MD Unavailable [phone] Marquise Peres MD Unavailable [phone] Vicki Mackay MD Unavailable [phone] Encounter Details Date Type Department Care Team (Late st Contact Info) Description 01/08/2012 [facility] Reji Hernández MD [address] [place] [address] Social History Tobacco Use Types Packs/Day Years Used Date Smoking Tobacco: Former Cigarettes Q uit: 04/28/2003 Alcohol Use Standard Drinks/Week Comments No 0 (1 standard drink = 0.6 oz pur e alcohol) Comments No Sex and Gender Information Value Date Recorded Sex Assigned at Not on file 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 Gender Identity Not on file Sexual Orientation Not on file documented as of this encounter Plan of Treatment Upcoming Encounters Date Type Department Care Team (Late st Contact Info) Description 01/08/2025 11:20 AM CDT Office Visit [facility] - Endocrinology [address] [place] [address], [address] [place] [address] [place] [address] [facility] [address] [place] [address] 02/10/2025 10:45 AM CDT Office [place] [facility] [address] [address] [facility] [address] [place] [address] [place] [address] [address] [facility] [address] [place] [address] 11/16/2025 10:30 AM CDT Office Visit [facility] - RUG WASHER [address] [facility] [address] [place] [address] Heath Hernandez MD 10[address] [facility] [address] [place] [address] documented as of this encounter Visit Diagnoses Not on filedocumented in this encounter Care Teams Marine Surveyor Relationship Specialty Start Date End Date Reji Hernández MD [address] [place] [address] PCP - General 04/30/08 01/10/16 [place] [address] [facility] [address] [place] [address] PCP - General Internal Medicine 01/11/16 01/16/16 [place] [address] [facility] [address] [place] [address] PCP - General Internal Medicine 01/17/16 Reji Hernández MD [address] [place] [address] 01/11/16 01/16/16 [place] [address] [facility] [address] [place] [address] Internal Medicine 01/17/16 [place] [address] [facility] [address] [place] [address] Nephrology 05/31/13 11/17/14 Vicki Mackay MD [address] [place] [address] Surgery 07/10/13 11/17/14 [place] [address] [facility] [email or web address] [place] [address] Endocrinology 11/18/14 [place] [address] [facility] [email or web address] [place] [address] Obstetrics and Gynecology 11/18/14 Cirilo Guzman MD [address] [facility] [address] [place] [address] Rheumatology 11/18/14 Marquise Peres MD [address] [place] [address] Obstetrics and Gynecology 04/11/1708/19 Vicki Mackay MD [address] [place] [address] Surgery 02/13/18 documented as of this encounter
[2024-12-14 05:58] LABS: Alanine Aminotransferase 18 U/L (6-35); Albumin Level 4.6 g/dL (3.5-5.1); Alkaline Phosphatase 73 U/L (38-126); Anion Gap 14 mmol/L (4-12); Aspartate Amino Transferase 29 U/L (14-36); Bilirubin,Total 2.0 mg/dL (0.2-1.3); Blood Urea Nitrogen 17 mg/dL (7-17); Calcium 9.5 mg/dL (8.4-10.2); Carbon Dioxide 18 mmol/L (22-30); Chloride 103 mmol/L (98-107); Estimated Glomerular Filt Rate > 60; Glucose 107 mg/dL (65-110); Potassium 4.0 mmol/L (3.4-5.0); Sodium 135 mmol/L (137-145); Total Protein 8.5 g/dL (6.3-8.2)
[2024-12-14 06:19] LABS: Non Pathogenic Casts 0-2
[2024-12-14 06:25] LABS: Appearance Urine Clear (Clear); Specific Grav Ur 1.020 (1.001-1.035)
[2024-12-14 06:26] LABS: Add Urine Microscopic? YES; Glucose Urine UA Negative (Negative); Leukocyte Esterase Ur 1+ LEU/UL (Negative); Nitrate Urine Negative (Negative)
--- NOTE | 2024-12-14 06:37 | ED_ITS ---
HPI - Abdominal Pain General Chief Complaint: Abdominal Pain <Ann Marie Dela Cruz MD - Last Filed: 12/14/24 07:29> Stated Complaint: left lower abd pain <Ann Marie Dela Cruz MD - Last Filed: 12/14/24 07:29> Time Seen by Provider: 12/14/24 04:21 <Ann Marie Dela Cruz MD - Last Filed: 12/14/24 07:29> History of Present Illness HPI narrative: Few days ago patient started having what feels like menstrual cramps over lower abdomen, yesterday it moved over to her left lower abdomen and has been there since, has become much more severe and she is having chills. Has never had symptoms like this before. No current nausea/vomiting. <Ann Marie Dela Cruz MD - Last Filed: 12/14/24 07:29> Related Data Home Medications: Home Medications ?Medication ?Instructions ?Recorded ?Confirmed ?Last Taken ?Type fluticasone furoate 100 1 inh inhalation DAILY 08/02/19 08/28/21 Unknown History mcg-vilanterol 25 mcg/dose inhalation powder (Breo Ellipta) pantoprazole 40 mg tablet,delayed 40 mg PO DAILY 08/02/19 08/28/21 Unknown History release meloxicam 15 mg tablet 15 mg PO DAILY 04/11/21 08/28/21 Unknown History infliximab 100 mg intravenous 100 mg IV USEASDIRECTD 08/28/21 08/28/21 Unknown History solution (Remicade) <Ann Marie Dela Cruz MD - Last Filed: 12/14/24 07:29> Allergies/Adverse Reactions: Allergies Allergy/AdvReac Type Severity Reaction Status Date / Time No Known Allergies Allergy Verified 12/14/24 04:25 <Ann Marie Dela Cruz MD - Last Filed: 12/14/24 07:29> Review of Systems 2 Review of Systems: All systems reviewed & are unremarkable except as noted in HPI and below <Ann Marie Dela Cruz MD - Last Filed: 12/14/24 07:29> PMFSH Past Medical History Medical History: Medical History (Updated 12/14/24 @ 08:44 by Olaf Beebe MD) [place] disease Augusta's disease GERD (gastroesophageal reflux disease) Ankylosing spondylitis Asthma <Ann Marie Dela Cruz MD - Last Filed: 12/14/24 07:29> Surgical History Surgical History: Surgical History Hx of total adrenalectomy S/P foot surgery, left <Ann Marie Dela Cruz MD - Last Filed: 12/14/24 07:29> Family History Family History: Family History Father Diabetes mellitus <Ann Marie Dela Cruz MD - Last Filed: 12/14/24 07:29> Social History Social History: Social History Smoking status: Never smoker Alcohol intake: never Substance use: never Living arrangements: with family Gender identity (if verbalized by the patient): Female Sexual Orientation (if Verbalized by the Patient): Straight or Heterosexual Spiritual care concerns: No <Ann Marie Dela Cruz MD - Last Filed: 12/14/24 07:29> Exam 2 Narrative: EXAMINATION OF ORGAN SYSTEMS/BODY AREAS: Constitutional: Vital signs per nursing GENERAL: Appears uncomfortable HEAD: Normal with no signs of head trauma. EYES: EOMI, conjunctiva normal ENT: Hearing grossly intact LUNGS: Nonlabored breathing. HEART: [Regular rate and rhythm] ABD: [Soft], tender left lower quadrant EXT: Normal range of motion SKIN: [No rashes or lesions.] NEURO: [Alert and oriented x 3. No gross focal sensory or strength deficits.] PSYCH: Normal affect <Ann Marie Dela Cruz MD - Last Filed: 12/14/24 07:29> Course Course Emergency Course: Patient care was signed out to me by the overnight physician. Patient is a 54 old female coming in for complaint of abdominal pain. Patient does have history of ankylosing spondylosis and is on Remicade. Patient has required multiple doses of IV pain medication including morphine and fentanyl. CT scan was concerning for acute diverticulitis with no abscess or perforation. Patient was started on IV Rocephin and IV Flagyl. Case was discussed with hospitalist patient was accepted for admission. Patient requires admission due to her history of immunosuppression, elevated lactic acid and poorly controlled pain. < Olaf Beebe MD - Last Filed: 12/14/24 08:44> Vital Signs Vital signs: Vital Signs Temperature 98.4 F 12/14/24 04:17 Pulse Rate 100 12/14/24 04:17 Respiratory Rate 15 12/14/24 04:17 Blood Pressure 128/86 12/14/24 04:17 Pulse Oximetry 98 12/14/24 04:17 Oxygen Delivery Room Air 12/14/24 04:17 Temperature 98.4 F 12/14/24 04:17 Pulse Rate 83 12/14/24 07:51 Respiratory Rate 20 12/14/24 07:51 Blood Pressure 111/81 12/14/24 07:17 Pulse Oximetry 95 12/14/24 07:51 Oxygen Delivery Room Air 12/14/24 04:17 <Ann Marie Dela Cruz MD - Last Filed: 12/14/24 07:29> Vital Signs Temperature 98.4 F 12/14/24 04:17 Pulse Rate 100 12/14/24 04:17 Respiratory Rate 15 12/14/24 04:17 Blood Pressure 128/86 12/14/24 04:17 Pulse Oximetry 98 12/14/24 04:17 Oxygen Delivery Room Air 12/14/24 04:17 Temperature 98.4 F 12/14/24 04:17 Pulse Rate 83 12/14/24 07:51 Respiratory Rate 20 12/14/24 07:51 Blood Pressure 111/81 12/14/24 07:17 Pulse Oximetry 95 12/14/24 07:51 Oxygen Delivery Room Air 12/14/24 04:17 <Olaf Beebe MD - Last Filed: 12/14/24 08:44> MDM - Abdominal Pain MDM Narrative Medical decision making narrative: Electronic medical record was reviewed. Patient presented to the ED with complaint of [abdominal pain, LLQ]. Vitals [were within acceptable limits]. Physical exam revealed [tenderness to palpation in the LLQ]. Based on the patient's history and physical exam, my differential includes but is not limited to [gastroenteritis, diverticulitis, appendicitis]. [IV access was established by nursing staff. Patient was given morphine]. CBC, BMP, lipase, LFTs, bilirubin and alk phos were obtained. Labs were pertinent for WBC 15.8. [Decision was made to obtain a CT-abdomen to evaluate for acute abdominal process.] On reevaluation, the patient still has pain; additional pain meds ordered. S/o to oncoming ER physician pending CT. <Ann Marie Dela Cruz MD - Last Filed: 12/14/24 07:29> Lab Data Result diagrams: 12/14/24 04:24 12/14/24 05:28 <Ann Marie Dela Cruz MD - Last Filed: 12/14/24 07:29> Labs: Lab Results 12/14/24 12/14/24 12/14/24 Range/Units 04:24 05:28 05:50 WBC 15.8 H (4.5-10.0) K/mm3 RBC 5.16 (4.2-5.4) M/mm3 Hgb 15.3 H (12.0-15.0) g/dL Hct 45.7 (37.0-47.0) % MCV 88.6 (80-100) fl MCH 29.7 (26-34) pg MCHC 33.5 (32-36) g/dl RDW 11.8 (11.5-14.5) % Plt Count 376 H (150-375) k/mm3 MPV 9.1 (7.4-10.4) fl Immature Gran % (Auto) 0.5 (0-0.5) % Neut % (Auto) 76.1 H (45.5-73.1) % Lymph % (Auto) 11.9 L (18.3-44.2) % [place] % (Auto) 10.9 H (2.6-8.5) % Eos % (Auto) 0.2 (0-4.4) % Baso % (Auto) 0.4 (0.2-1.2) % Lymph # (Auto) 1.88 (0.9-3.2) K/mm3 [place] # (Auto) 1.7 H (0.1-0.6) K/mm3 Eos # (Auto) 0.0 (0-0.3) K/mm3 Baso # (Auto) 0.1 (0.0-0.1) K/mm3 Abs Immat Gran (auto) 0.08 H (0.00-0.031) K/mm3 Absolute Neuts (auto) 12.0 H (1.3-6.7) K/mm3 Absolute Nucleated RBC 0.000 (0.0-0.012) K/mm3 Nucleated RBC % 0.0 (0.0-0.2) % Sodium 135 L (137-145) mmol/L Potassium 4.0 (3.4-5.0) mmol/L Chloride 103 (98-107) mmol/L Carbon Dioxide 18 L (22-30) mmol/L Anion Gap 14 H (4-12) mmol/L BUN 17 (7-17) mg/dL Creatinine 0.83 (0.7-1.0) mg/dL Estim Creat Clear Calc Not Reportable Estimated GFR > 60 (59 - ) Glucose 107 (65-110) mg/dL Lactic Acid 0.7 (0.7-2.0) mmol/L Calcium 9.5 (8.4-10.2) mg/dL Total Bilirubin 2.0 H (0.2-1.3) mg/dL AST 29 (14-36) U/L ALT 18 (6-35) U/L Alkaline Phosphatase 73 (38-126) U/L Total Protein 8.5 H (6.3-8.2) g/dL Albumin 4.6 (3.5-5.1) g/dL Urine Color Dark yellow (Yellow) Urine Appearance Clear (Clear) Urine pH 6.0 (5.0-9.0) Ur Specific [place] 1.020 (1.001-1.035) Urine Protein Negative (Negative) mg/dL Urine Glucose (UA) Negative (Negative) mg/dL Urine Ketones 1+ H (Negative) mg/dL Ur Blood (Man) Negative (Negative) Urine Nitrate Negative (Negative) Urine Bilirubin 1+ H (Negative) Urine Urobilinogen 0.2 (<2.0) mg/dL Leukocyte Esterase Rfl 1+ H (Negative) THAI/UL Urine RBC 3-5 H (0-2) /hpf Urine WBC 0-5 (0-3) /hpf Ur Squamous Epith Cells Occasional (Few) /hpf Urine Bacteria None seen /hpf Urine Casts 0-2 <Ann Marie Dela Cruz MD - Last Filed: 12/14/24 07:29> Lab Results 12/14/24 12/14/24 12/14/24 Range/Units 04:24 05:28 05:50 WBC 15.8 H (4.5-10.0) K/mm3 RBC 5.16 (4.2-5.4) M/mm3 Hgb 15.3 H (12.0-15.0) g/dL Hct 45.7 (37.0-47.0) % MCV 88.6 (80-100) fl MCH 29.7 (26-34) pg MCHC 33.5 (32-36) g/dl RDW 11.8 (11.5-14.5) % Plt Count 376 H (150-375) k/mm3 MPV 9.1 (7.4-10.4) fl Immature Gran % (Auto) 0.5 (0-0.5) % Neut % (Auto) 76.1 H (45.5-73.1) % Lymph % (Auto) 11.9 L (18.3-44.2) % [place] % (Auto) 10.9 H (2.6-8.5) % Eos % (Auto) 0.2 (0-4.4) % Baso % (Auto) 0.4 (0.2-1.2) % Lymph # (Auto) 1.88 (0.9-3.2) K/mm3 [place] # (Auto) 1.7 H (0.1-0.6) K/mm3 Eos # (Auto) 0.0 (0-0.3) K/mm3 Baso # (Auto) 0.1 (0.0-0.1) K/mm3 Abs Immat Gran (auto) 0.08 H (0.00-0.031) K/mm3 Absolute Neuts (auto) 12.0 H (1.3-6.7) K/mm3 Absolute Nucleated RBC 0.000 (0.0-0.012) K/mm3 Nucleated RBC % 0.0 (0.0-0.2) % Sodium 135 L (137-145) mmol/L Potassium 4.0 (3.4-5.0) mmol/L Chloride 103 (98-107) mmol/L Carbon Dioxide 18 L (22-30) mmol/L Anion Gap 14 H (4-12) mmol/L BUN 17 (7-17) mg/dL Creatinine 0.83 (0.7-1.0) mg/dL Estim Creat Clear Calc Not Reportable Estimated GFR > 60 (59 - ) Glucose 107 (65-110) mg/dL Lactic Acid 0.7 (0.7-2.0) mmol/L Calcium 9.5 (8.4-10.2) mg/dL Total Bilirubin 2.0 H (0.2-1.3) mg/dL AST 29 (14-36) U/L ALT 18 (6-35) U/L Alkaline Phosphatase 73 (38-126) U/L Total Protein 8.5 H (6.3-8.2) g/dL Albumin 4.6 (3.5-5.1) g/dL Urine Color Dark yellow (Yellow) Urine Appearance Clear (Clear) Urine pH 6.0 (5.0-9.0) Ur Specific [place] 1.020 (1.001-1.035) Urine Protein Negative (Negative) mg/dL Urine Glucose (UA) Negative (Negative) mg/dL Urine Ketones 1+ H (Negative) mg/dL Ur Blood (Man) Negative (Negative) Urine Nitrate Negative (Negative) Urine Bilirubin 1+ H (Negative) Urine Urobilinogen 0.2 (<2.0) mg/dL Leukocyte Esterase Rfl 1+ H (Negative) THAI/UL Urine RBC 3-5 H (0-2) /hpf Urine WBC 0-5 (0-3) /hpf Ur Squamous Epith Cells Occasional (Few) /hpf Urine Bacteria None seen /hpf Urine Casts 0-2 <Olaf Beebe MD - Last Filed: 12/14/24 08:44> Imaging Data Radiologist's impression: ITS Impressions Abdomen/Pelvis CT 12/14/24 07:41 IMPRESSION: Mural thickening and surrounding inflammatory change within the distal descending colon, with infiltration of the adjacent mesentery, consistent with (likely) acute diverticulitis for which follow-up to resolution is recommended as a malignancy can have a similar appearance. No gross perforation or drainable fluid collection. <Ann Marie Dela Cruz MD - Last Filed: 12/14/24 07:29> ITS Impressions Abdomen/Pelvis CT 12/14/24 07:41 IMPRESSION: Mural thickening and surrounding inflammatory change within the distal descending colon, with infiltration of the adjacent mesentery, consistent with (likely) acute diverticulitis for which follow-up to resolution is recommended as a malignancy can have a similar appearance. No gross perforation or drainable fluid collection. <Olaf Beebe MD - Last Filed: 12/14/24 08:44> Discharge Plan Discharge Clinical Impression: Abdominal pain, LLQ, Diverticulitis <Ann Marie Dela Cruz MD - Last Filed: 12/14/24 07:29> Patient Disposition: Still a Patient <Ann Marie Dela Cruz MD - Last Filed: 12/14/24 07:29> Condition: Serious <Ann Marie Dela Cruz MD - Last Filed: 12/14/24 07:29> Instructions: Antibiotic Form <Ann Marie Dela Cruz MD - Last Filed: 12/14/24 07:29> Patient Language: Slovenian <Ann Marie Dela Cruz MD - Last Filed: 12/14/24 07:29> Prescriptions: No Action meloxicam 15 mg tablet 15 mg PO DAILY infliximab [Remicade] 100 mg Recon Soln 100 mg IV USEASDIRECTD Rx Instructions: Given IV every 8 weeks. sulfamethoxazole-trimethoprim [Bactrim DS] 800-160 mg tablet 1 tablet PO Q12H Qty: 20 0RF cephalexin 500 mg capsule 500 mg PO Q6H Qty: 40 0RF Breo Ellipta 100-25 mcg/dose blister with device 1 inh INHALATION DAILY pantoprazole 40 mg tablet,delayed release (DR/EC) 40 mg PO DAILY <Ann Marie Dela Cruz MD - Last Filed: 12/14/24 07:29> Follow-up/Referrals: Abelino Marmolejo [Other] <Ann Marie Dela Cruz MD - Last Filed: 12/14/24 07:29>
[2024-12-14] MEDS: LACTATED RINGERS 1,000 ML 999 ML IV CONT (06:59)
[2024-12-14] MEDS: fentaNYL CITRATE INJ (*CRX) 100 MCG/2 ML VIAL 50 MCG IV PUSH ×3 (07:00→13:03)
--- NOTE | 2024-12-14 07:18 | PC.NURSE ---
Report to WAYLON Garay.
--- NOTE | 2024-12-14 09:30 | ADMGEN ---
This patient, Sienna Walker, was admitted to Medical Room 250-01. Patient/family oriented to hospital policies and general routines including ID bracelet, bed and alarms, visiting hours, pain management, procedures, bathroom and other care routines, personal items, smoking policy, room service/diet, and visiting hours. Information on how to activate the Rapid Response Team has been discussed. Patient/Family are encouraged to report perceived risks to care and to ask questions if they do not understand what they are told or what they should do.
[2024-12-14] MEDS: cefTRIAXone 1 GM in SODIUM CHLORIDE 0.9% IV 50 ML 100 ML IVPB (09:53)
[2024-12-14] MEDS: metroNIDAZOLE 500 MG/ISO 100ML 500 MG/100 ML BAG 100 MG IVPB ×2 (10:13→18:12)
[2024-12-14] MEDS: LACTATED RINGERS 1,000 ML 125 ML IV CONT ×2 (10:16→20:11)
[2024-12-14] MEDS: SPIRONOLACTONE 50 MG TABLET 100 MG PO (12:33)
[2024-12-14] MEDS: PANTOPRAZOLE 40 MG TABLET PO ×2 (12:33→20:21)
[2024-12-14] MEDS: MELOXICAM 7.5 MG TABLET 15 MG PO (12:33)
--- NOTE | 2024-12-14 13:26 | P.HP_ITS ---
H&P: HPI History of Present Illness Date/Time: 12/14/24 13:26 Chief Complaint: Abdominal Pain Narrative: This is a very pleasant 54 year old female pt with PMH of [place] syndrome, Addisons syndrome, GERD, Asthma, Ankylosing Spondylosis on Remicade, who is s/p Total Adrenalectomy, who presented through the ER this AM with complaints of having lower abdominal pain for the past couple of days that spreads across the low abdomen, but then localized to the LLQ. She had a couple of days of N/V/D before the pain began, but none since. She denies any hematemesis, melena, or hematochezia. The pain is described as a cramp but has gradually become more sharp, intense and constant in the LLQ. Pt is not a diabetic, but states that she has taken Metformin from her PCP because her C-peptide was high signifying insulin resistance. She reports her last A1C was 5.8. She last had a colonoscopy in 07/2023 and it was normal. In the ER, pt was worked up and findings were significant for CT scan of abd and pelvis showing acute diverticulitis without abscess formation or perforation. Her WBC's were 15.8. Remainder of labs and workup normal. She was placed on Rocephin and Flagyl and started on pain control and admitted to the hospital for continued management and monitoring. Review of Systems Review of Systems: All systems reviewed & are unremarkable except as noted in HPI and below PMFSH Past Medical History Medical History (Updated 12/14/24 @ 13:38 by AMANDA Aguilar) [place] disease Tomy's disease GERD (gastroesophageal reflux disease) Ankylosing spondylitis Asthma Surgical History Surgical History (Updated 12/14/24 @ 13:37 by AMANDA Aguilar) Hx of total adrenalectomy S/P foot surgery, left Family History Family History Father Diabetes mellitus Social History Social History Smoking status: Former smoker Alcohol intake: current Substance use: never Substance use type: does not use Do You Feel Safe in your Home?: Yes Lack of Transportation: No Lack of Food: Never True Current Housing: I Have Housing Concerned About Future Housing: No Difficulty Paying Gas/Electric Bills: No Difficulty Paying for Meds: No Currently Unemployed: No Education: Associate Degree Difficulty w/ Childcare or Family Care: No Living arrangements: with family Gender identity (if verbalized by the patient): Female Sexual Orientation (if Verbalized by the Patient): Straight or Heterosexual Spiritual care concerns: No Meds Home Medications and Allergies Home Medications ?Medication ?Instructions ?Recorded ?Confirmed ?Type meloxicam 15 mg tablet 15 mg PO DAILY 04/11/21 12/14/24 History infliximab 100 mg intravenous 100 mg IV USEASDIRECTD 08/28/21 12/14/24 History solution (Remicade) amitriptyline 25 mg tablet 25 mg PO HS 12/14/24 12/14/24 History esomeprazole magnesium 40 mg 40 mg PO BID 12/14/24 12/14/24 History capsule,delayed release (Nexium) estradiol 0.5 mg tablet 0.5 mg PO DAILY 12/14/24 12/14/24 History metformin 500 mg tablet 500 mg PO BID 12/14/24 12/14/24 History spironolactone 100 mg tablet 100 mg PO BID 12/14/24 12/14/24 History Allergies Allergy/AdvReac Type Severity Reaction Status Date / Time No Known Allergies Allergy Verified 12/14/24 09:47 Vital Signs Vital Signs - 24 hr 12/14/24 04:17 12/14/24 04:20 12/14/24 04:32 Temperature 98.4 F Pulse Rate 100 100 90 Respiratory Rate 15 15 22 H Blood Pressure 128/86 128/86 114/88 Pulse Oximetry 98 98 96 Oxygen Delivery Room Air 12/14/24 06:45 12/14/24 06:49 12/14/24 07:00 Temperature Pulse Rate 91 91 89 Respiratory Rate 18 15 17 Blood Pressure 100/53 L 100/53 L Pulse Oximetry 96 94 98 Oxygen Delivery 12/14/24 07:02 12/14/24 07:15 12/14/24 07:17 Temperature Pulse Rate 84 87 80 Respiratory Rate 20 16 17 Blood Pressure 118/84 111/81 Pulse Oximetry 96 93 95 Oxygen Delivery 12/14/24 07:51 12/14/24 09:36 12/14/24 10:54 Temperature Pulse Rate 83 77 Respiratory Rate 20 16 Blood Pressure 125/65 Pulse Oximetry 95 99 99 Oxygen Delivery Room Air Exam Const: General: no acute distress and uncomfortable; No in distress HENMT: Mouth: Yes moist mucous membranes Eyes: General: appearance normal, both eyes and all related structures Neck: Neck: supple and no JVD Lymphatic: lymphadenopathy not noted Resp: Effort & Inspection: normal respiratory effort Auscultation: clear to auscultation bilaterally Cardio: Rate: regular rate Rhythm: regular rhythm Heart sounds: no gallops, no murmurs and no rubs GI: GI Palp: Yes Soft to palpation, Yes Tenderness to palpation present (GI) and Yes Guarding due to palpation present (GI) Auscultation: normal bowel sounds Other: LLQ abdominal pain Skin: General skin exam: normal color and no rashes or lesions noted Lesi ons: no lesions noted Rashes: no rashes noted Wounds: no wounds Neuro: General: gait normal Speech: normal speech Motor exam (neuro): 5/5 motor strength present throughout and Normal motor muscle tone present throughout Sensory Exam: normal sensation Extrem: General: normal to inspection, no edema and no pedal edema Other: FROM of all extremities actively without deficit. Psych: Mental Status: mental status grossly normal Affect: normal affect H&P: Results Labs Labs: Short CBC 12/14/24 Range/Units 04:24 WBC 15.8 H (4.5-10.0) K/mm3 Hgb 15.3 H (12.0-15.0) g/dL Hct 45.7 (37.0-47.0) % Plt Count 376 H (150-375) k/mm3 BMP 12/14/24 05:28 Sodium 135 L Potassium 4.0 Chloride 103 Carbon Dioxide 18 L BUN 17 Creatinine 0.83 Glucose 107 Calcium 9.5 Liver Function 12/14/24 Range/Units 05:28 Total Bilirubin 2.0 H (0.2-1.3) mg/dL AST 29 (14-36) U/L ALT 18 (6-35) U/L Alkaline Phosphatase 73 (38-126) U/L Albumin 4.6 (3.5-5.1) g/dL Urine 12/14/24 Range/Units 05:50 Urine Color Dark yellow (Yellow) Urine Appearance Clear (Clear) Urine pH 6.0 (5.0-9.0) Ur Specific [place] 1.020 (1.001-1.035) Urine Protein Negative (Negative) mg/dL Urine Glucose (UA) Negative (Negative) mg/dL Assessment and Plan Assessment and plan (1) Diverticulitis: Code(s): K57.92 - Diverticulitis of intestine, part unspecified, without perforation or abscess without bleeding Status: Acute Assessment and Plan: * Continue IV abx * Continue IVF for hydration * Continue PRN pain meds and PRN Anti-emetics * CT scan was independently reviewed by myself and there are no s/s of acute abscess formation and no perforation. * Discussed with pt that she will need outpt follow up colonoscopy upon discharge. (2) Hx of total adrenalectomy: Code(s): E89.6 - Postprocedural adrenocortical (-medullary) hypofunction Status: Chronic Assessment and Plan: * Continue Aldactone * Consider checking Cortisol levels (3) Ankylosing spondylitis: Code(s): M45.9 - Ankylosing spondylitis of unspecified sites in spine Status: Chronic Assessment and Plan: * Hold [facility] Quality VTE Prophylaxis VTE prophylaxis: pharmacologic ordered Hospitalist [facility] Advance Care Plan I have confirmed that the patient's Advanced Care Plan is present, code status is documented, or surrogate decision maker is listed in patient medical record.: Yes Medication Reconciliation I have utilized all available resources to obtain, update and review the patients current medications (includes all prescriptions, OTC, herbals, cannabis, and nutritional supplements).: Yes
[2024-12-14] MEDS: HYDROmorphone HCL INJ (*CRX) 2 MG/ML VIAL 1 MG IV PUSH ×2 (16:39→21:56)
[2024-12-14] MEDS: ONDANSETRON INJ 4 MG/2 ML VIAL IV PUSH (17:20)
[2024-12-14] MEDS: AMITRIPTYLINE HCL 25 MG TABLET PO (20:21)
[2024-12-15] MEDS: LACTATED RINGERS 1,000 ML 125 ML IV CONT ×2 (04:03→13:09)
[2024-12-15] MEDS: HYDROmorphone HCL INJ (*CRX) 2 MG/ML VIAL 1 MG IV PUSH (04:04)
[2024-12-15 04:17] VITALS: BP 110/60; PULSE 83; RESP 16; TEMP 37.3; O2SAT 94
[2024-12-15 05:20] LABS: Hematocrit 39.5 % (37.0-47.0); Hemoglobin 12.6 g/dL (12.0-15.0); Immature Granulocyte Percent A 0.4 % (0-0.5); Lymphocytes Absolute Auto 2.12 K/mm3 (0.9-3.2); Mean Corpuscular HGB Conc 31.9 g/dl (32-36); Mean Corpuscular Hemoglobin 29.8 pg (26-34); Mean Corpuscular Volume 93.4 fl (80-100); Nucleated Red Blood Cells Absolute Auto 0.000 K/mm3 (0.0-0.012); Nucleated Red Blood Cells Perc 0.0 % (0.0-0.2); Platelet Count Result 298 k/mm3 (150-375); Red Blood Count 4.23 M/mm3 (4.2-5.4); White Blood Count 8.1 K/mm3 (4.5-10.0)
[2024-12-15] MEDS: metroNIDAZOLE 500 MG/ISO 100ML 500 MG/100 ML BAG 100 MG IVPB ×3 (05:39→21:26)
[2024-12-15 06:17] LABS: Alanine Aminotransferase 13 U/L (6-35); Albumin Level 3.6 g/dL (3.5-5.1); Alkaline Phosphatase 54 U/L (38-126); Anion Gap 5 mmol/L (4-12); Aspartate Amino Transferase 23 U/L (14-36); Bilirubin,Total 1.3 mg/dL (0.2-1.3); Blood Urea Nitrogen 8 mg/dL (7-17); Calcium 8.7 mg/dL (8.4-10.2); Carbon Dioxide 28 mmol/L (22-30); Chloride 101 mmol/L (98-107); Estimated CRCL calculation 76 ml/min; Estimated Glomerular Filt Rate > 60; Glucose 95 mg/dL (65-110); Lipase 47 U/L (23-300); Magnesium 1.9 mg/dL (1.6-2.3); Potassium 4.0 mmol/L (3.4-5.0); Sodium 134 mmol/L (137-145); Total Protein 6.8 g/dL (6.3-8.2)
[2024-12-15 08:00] VITALS: O2SAT 94
[2024-12-15] MEDS: MELOXICAM 7.5 MG TABLET 15 MG PO (08:16)
[2024-12-15] MEDS: PANTOPRAZOLE 40 MG TABLET PO ×2 (08:16→17:09)
[2024-12-15] MEDS: SPIRONOLACTONE 50 MG TABLET 100 MG PO ×2 (08:16→17:09)
[2024-12-15] MEDS: HYDROcodone/acetaminophen (*CRX) 5-325 MG TABLET 1 TAB PO (08:17)
[2024-12-15] MEDS: ENOXAPARIN 40 MG/0.4 ML SYRINGE SUB-Q (08:17)
[2024-12-15] MEDS: HYDROmorphone HCL INJ (*CRX) 2 MG/ML VIAL 0.5 MG IV PUSH ×3 (10:57→21:31)
[2024-12-15] MEDS: cefTRIAXone 1 GM in SODIUM CHLORIDE 0.9% IV 50 ML 100 ML IVPB (10:58)
[2024-12-15 14:00] VITALS: BP 107/52; PULSE 73; RESP 16; TEMP 36.4; O2SAT 97
--- NOTE | 2024-12-15 14:06 | P.PNIM_ITS ---
Progress Note: A&P Assessment and Plan (1) Diverticulitis: Code(s): K57.92 - Diverticulitis of intestine, part unspecified, without perforation or abscess without bleeding Status: Acute Assessment and Plan: * Continue IV abx * Continue IVF for hydration * Continue PRN pain meds and PRN Anti-emetics * CT scan was independently reviewed by myself and there are no s/s of acute abscess formation and no perforation. * Discussed with pt that she will need outpt follow up colonoscopy upon discharge. (2) Hx of total adrenalectomy: Code(s): E89.6 - Postprocedural adrenocortical (-medullary) hypofunction Status: Chronic Assessment and Plan: * Continue Aldactone * Consider checking Cortisol levels (3) Ankylosing spondylitis: Code(s): M45.9 - Ankylosing spondylitis of unspecified sites in spine Status: Chronic Assessment and Plan: * Hold Remicade Plan patient presented with LLQ pain and is found to have diverticulitis, being treated with ceftriaxone and Flagyl, stats pain is getting better and feels better compared to when she arrived, will continue and reassess tomorrow, possible discharge tomorrow. Subjective Date/time seen: 12/15/24 14:06 Interval history: Abdominal Pain Narrative: This is a very pleasant 54 year old female pt with PMH of Cushings syndrome, Addisons syndrome, GERD, Asthma, Ankylosing Spondylosis on Remicade, who is s/p Total Adrenalectomy, who presented through the ER this AM with complaints of having lower abdominal pain for the past couple of days that spreads across the low abdomen, but then localized to the LLQ. She had a couple of days of N/V/D before the pain began, but none since. She denies any hematemesis, melena, or hematochezia. The pain is described as a cramp but has gradually become more sharp, intense and constant in the LLQ. Pt is not a diabetic, but states that she has taken Metformin from her PCP because her C-peptide was high signifying insulin resistance. She reports her last A1C was 5.8. She last had a colonoscopy in 07/2023 and it was normal. In the ER, pt was worked up and findings were significant for CT scan of abd and pelvis showing acute diverticulitis without abscess formation or perforation. Her WBC's were 15.8. Remainder of labs and workup normal. She was placed on Rocephin and Flagyl and started on pain control and admitted to the hospital for continued management and monitoring. patient presented with LLQ pain and is found to have diverticulitis, being treated with ceftriaxone and Flagyl, stats pain is getting better and feels better compared to when she arrived, will continue and reassess tomorrow, possible discharge tomorrow. Review of Systems Review of Systems: All systems reviewed & are unremarkable except as noted in HPI and below Exam Narrative: Patient is comfortable, NAD HEENT: eyes are clear and none icteric LUNGS:CTA HEART: RR S1S2 ABD: BS+, Soft and nontender Lower extremities: no edema SKIN: nonjaundiced Neuro: grossly intact. Objective Data Vital Signs Vital Signs: Vital Signs - 24 hr 12/14/24 15:27 12/14/24 20:00 12/14/24 21:22 Temperature 36.7 C Pulse Rate 79 79 Respiratory Rate 17 17 Blood Pressure 103/54 L Pulse Oximetry 91 96 96 Oxygen Delivery Room Air Room Air 12/15/24 04:17 12/15/24 08:00 Temperature 37.3 C Pulse Rate 83 Respiratory Rate 16 Blood Pressure 110/60 Pulse Oximetry 94 94 Oxygen Delivery Room Air Intake/Output Intake/Output: Intake & Output 12/12/24 12/13/24 12/14/24 12/15/24 23:59 23:59 23:59 23:59 Intake Total 4080 2823.3 Balance 4080 2823.3 Meds/Results Medications: Active Medications Generic Name Dose Route Start Last Admin Trade Name Daljitq PRN Reason Stop Dose Admin Hydrocodone Bitart/Acetaminophen 1 tab 12/15/24 07:41 12/15/24 08:17 Hydrocodone/Acetaminophen (*Crx) 5-325 Mg Tablet PO 1 tab Q4H PRN Administration Pain Rated 4-6 Amitriptyline HCl 25 mg 12/14/24 21:00 12/14/24 20:21 Amitriptyline Hcl 25 Mg Tablet PO 25 mg HS NEHAL Administration Enoxaparin Sodium 40 mg 12/15/24 09:00 12/15/24 08:17 Enoxaparin 40 Mg/0.4 Ml Syringe SUB-Q 40 mg DAILY NEHAL Administration Estradiol 0.5 mg 12/14/24 09:00 12/15/24 08:16 Estradiol 0.5 Mg Tablet PO 0.5 mg DAILY NEHAL Administration Hydromorphone HCl 0.5 mg 12/15/24 10:44 12/15/24 10:57 Hydromorphone Hcl Inj (*Crx) 2 Mg/Ml Vial IV PUSH 0.5 mg Q3H PRN Administration Pain Rated 7-10 Ceftriaxone Sodium 1 gm/ 50 mls @ 100 mls/hr 12/15/24 10:00 12/15/24 10:58 Sodium Chloride IVPB 100 mls/hr Q24H NEHAL Administration Metronidazole 500 mg in 100 mls @ 100 mls/hr 12/14/24 19:00 12/15/24 13:09 Flagyl 500 Mg/Iso Soln 100 Ml IVPB 100 mls/hr Q8HR NEHAL Administration Lactated Ringer's 1,000 mls @ 125 mls/hr 12/14/24 08:45 12/15/24 13:09 Lr - Lactated Ringers Iv IV CONT 125 mls/hr .Q8H NEHAL Administration Meloxicam 15 mg 12/14/24 09:00 12/15/24 08:16 Meloxicam 7.5 Mg Tablet PO 15 mg QAM NEHAL Administration Ondansetron HCl 4 mg 12/14/24 13:36 12/14/24 17:20 Ondansetron Inj 4 Mg/2 Ml Vial IV PUSH 4 mg Q6H PRN Administration Nausea And Vomiting Pantoprazole Sodium 40 mg 12/14/24 12:10 12/15/24 08:16 Pantoprazole 40 Mg Tablet PO 40 mg BID NEHAL Administration Polyethylene Glycol 17 gm 12/15/24 07:41 12/15/24 08:16 Polyethylene Glycol 3350 17 Gm Powd.Pack PO 17 gm QAM PRN Administration Constipation Spironolactone 100 mg 12/14/24 12:10 12/15/24 08:16 Spironolactone 50 Mg Tablet PO 100 mg BID NEHAL Administration Radiology Results: ITS Impressions Abdomen/Pelvis CT 12/14/24 07:41 IMPRESSION: Mural thickening and surrounding inflammatory change within the distal descending colon, with infiltration of the adjacent mesentery, consistent with (likely) acute diverticulitis for which follow-up to resolution is recommended as a malignancy can have a similar appearance. No gross perforation or drainable fluid collection. Labs Labs: Laboratory Results - last 24 hr 12/15/24 04:55 WBC 8.1 RBC 4.23 Hgb 12.6 Hct 39.5 MCV 93.4 D MCH 29.8 MCHC 31.9 L RDW 11.9 Plt Count 298 MPV 9.3 Immature Gran % (Auto) 0.4 Neut % (Auto) 57.2 Lymph % (Auto) 26.3 [place] % (Auto) 12.5 H Eos % (Auto) 2.7 Baso % (Auto) 0.9 Lymph # (Auto) 2.12 [place] # (Auto) 1.0 H Eos # (Auto) 0.2 Baso # (Auto) 0.1 Abs Immat Gran (auto) 0.03 Absolute Neuts (auto) 4.6 Absolute Nucleated RBC 0.000 Nucleated RBC % 0.0 Sodium 134 L Potassium 4.0 Chloride 101 Carbon Dioxide 28 Anion Gap 5 BUN 8 D Creatinine 0.71 Estim Creat Clear Calc 76 Estimated GFR > 60 Glucose 95 Calcium 8.7 Magnesium 1.9 Total Bilirubin 1.3 AST 23 ALT 13 Alkaline Phosphatase 54 Total Protein 6.8 Albumin 3.6 Lipase 47 Quality VTE Prophylaxis VTE prophylaxis: pharmacologic ordered
[2024-12-15 20:46] VITALS: BP 116/52; PULSE 76; RESP 16; TEMP 36.1; O2SAT 98
[2024-12-15] MEDS: AMITRIPTYLINE HCL 25 MG TABLET PO (21:26)
[2024-12-16 01:15] VITALS: O2SAT 95
[2024-12-16] MEDS: HYDROmorphone HCL INJ (*CRX) 2 MG/ML VIAL 0.5 MG IV PUSH ×4 (04:44→21:14)
[2024-12-16] MEDS: metroNIDAZOLE 500 MG/ISO 100ML 500 MG/100 ML BAG 100 MG IVPB ×3 (05:01→21:16)
[2024-12-16 05:19] LABS: Hematocrit 38.5 % (37.0-47.0); Hemoglobin 12.4 g/dL (12.0-15.0); Mean Corpuscular HGB Conc 32.2 g/dl (32-36); Mean Corpuscular Hemoglobin 29.7 pg (26-34); Mean Corpuscular Volume 92.1 fl (80-100); Platelet Count Result 282 k/mm3 (150-375); Red Blood Count 4.18 M/mm3 (4.2-5.4); White Blood Count 5.8 K/mm3 (4.5-10.0)
[2024-12-16 05:33] VITALS: BP 118/60; PULSE 73; RESP 16; TEMP 36.6; O2SAT 96
[2024-12-16 05:49] LABS: Alanine Aminotransferase 12 U/L (6-35); Albumin Level 3.7 g/dL (3.5-5.1); Alkaline Phosphatase 53 U/L (38-126); Anion Gap 4 mmol/L (4-12); Aspartate Amino Transferase 23 U/L (14-36); Bilirubin,Total 0.8 mg/dL (0.2-1.3); Blood Urea Nitrogen 8 mg/dL (7-17); Calcium 8.8 mg/dL (8.4-10.2); Carbon Dioxide 30 mmol/L (22-30); Chloride 98 mmol/L (98-107); Estimated CRCL calculation 73 ml/min; Estimated Glomerular Filt Rate > 60; Glucose 104 mg/dL (65-110); Magnesium 2.0 mg/dL (1.6-2.3); Potassium 4.4 mmol/L (3.4-5.0); Sodium 132 mmol/L (137-145); Total Protein 7.0 g/dL (6.3-8.2)
[2024-12-16 08:00] VITALS: O2SAT 96
[2024-12-16] MEDS: ENOXAPARIN 40 MG/0.4 ML SYRINGE SUB-Q (08:05)
[2024-12-16] MEDS: SPIRONOLACTONE 50 MG TABLET 100 MG PO ×2 (08:06→17:11)
[2024-12-16] MEDS: PANTOPRAZOLE 40 MG TABLET PO ×2 (08:06→17:11)
[2024-12-16] MEDS: MELOXICAM 7.5 MG TABLET 15 MG PO (08:06)
[2024-12-16] MEDS: HYDROcodone/acetaminophen (*CRX) 5-325 MG TABLET 1 TAB PO (08:11)
[2024-12-16] MEDS: cefTRIAXone 1 GM in SODIUM CHLORIDE 0.9% IV 50 ML 100 ML IVPB (09:46)
[2024-12-16 14:00] VITALS: BP 116/65; PULSE 73; RESP 18; TEMP 36.6; O2SAT 96
--- NOTE | 2024-12-16 17:21 | P.PNIM_ITS ---
Progress Note: A&P Assessment and Plan (1) Diverticulitis: Code(s): K57.92 - Diverticulitis of intestine, part unspecified, without perforation or abscess without bleeding Status: Acute Assessment and Plan: * Continue IV abx * Continue IVF for hydration * Continue PRN pain meds and PRN Anti-emetics * CT scan was independently reviewed by myself and there are no s/s of acute abscess formation and no perforation. * Discussed with pt that she will need outpt follow up colonoscopy upon discharge. (2) Hx of total adrenalectomy: Code(s): E89.6 - Postprocedural adrenocortical (-medullary) hypofunction Status: Chronic Assessment and Plan: * Continue Aldactone * Consider checking Cortisol levels (3) Ankylosing spondylitis: Code(s): M45.9 - Ankylosing spondylitis of unspecified sites in spine Status: Chronic Assessment and Plan: * Hold Remicade Plan patient presented with LLQ pain and is found to have diverticulitis, being treated with ceftriaxone and Flagyl, on 12/15 stated pain was getting better and felt better compared to when she arrived, however today pain was getting worsen and she had not had BM for several days, KUB was concerning to further evaluate CT of abdomen was done and showed redemonstration of mural thickening within the proximal sigmoid colon. The diverticulum are less prominent on today's examination for which the possibility of malignancy is suggested. did discuss with patient and her and answers their questions, will consult GI and general surgery for further recommendation. patient is instructed limit PO intake Subjective Date/time seen: 12/16/24 17:21 Interval history: Abdominal Pain Narrative: This is a very pleasant 54 year old female pt with PMH of Cushings syndrome, Ad disons syndrome, GERD, Asthma, Ankylosing Spondylosis on Remicade, who is s/p Total Adrenalectomy, who presented through the ER this AM with complaints of having lower abdominal pain for the past couple of days that spreads across the low abdomen, but then localized to the LLQ. She had a couple of days of N/V/D before the pain began, but none since. She denies any hematemesis, melena, or hematochezia. The pain is described as a cramp but has gradually become more sharp, intense and constant in the LLQ. Pt is not a diabetic, but states that she has taken Metformin from her PCP because her C-peptide was high signifying insulin resistance. She reports her last A1C was 5.8. She last had a colonoscopy in 07/2023 and it was normal. In the ER, pt was worked up and findings were significant for CT scan of abd and pelvis showing acute diverticulitis without abscess formation or perforation. Her WBC's were 15.8. Remainder of labs and workup normal. She was placed on Rocephin and Flagyl and started on pain control and admitted to the hospital for continued management and monitoring. patient presented with LLQ pain and is found to have diverticulitis, being treated with ceftriaxone and Flagyl, on 12/15 stated pain was getting better and felt better compared to when she arrived, however today pain was getting worsen and she had not had BM for several days, KUB was concerning to further evaluate CT of abdomen was done and showed redemonstration of mural thickening within the proximal sigmoid colon. The diverticulum are less prominent on today's examination for which the possibility of malignancy is suggested. did discuss with patient and her and answers their questions, will consult GI and general surgery for further recommendation. patient is instructed limit PO intake Review of Systems Review of Systems: All systems reviewed & are unremarkable except as noted in HPI and below Exam Narrative: Patient is comfortable, NAD HEENT: eyes are clear and none icteric LUNGS:CTA HEART: RR S1S2 ABD: BS+, Soft and nontender Lower extremities: no edema SKIN: nonjaundiced Neuro: grossly intact. Objective Data Vital Signs Vital Signs: Vital Signs - 24 hr 12/15/24 20:00 12/15/24 20:46 12/16/24 01:15 Temperature 36.1 C L Pulse Rate 76 Respiratory Rate 16 Blood Pressure 116/52 L Pulse Oximetry 98 95 Oxygen Delivery Room Air Room Air 12/16/24 05:33 12/16/24 08:00 12/16/24 14:00 Temperature 36.6 C 36.6 C Pulse Rate 73 73 Respiratory Rate 16 18 Blood Pressure 118/60 116/65 Pulse Oximetry 96 96 96 Oxygen Delivery Room Air Intake/Output Intake/Output: Intake & Output 12/13/24 12/14/24 12/15/24 12/16/24 23:59 23:59 23:59 23:59 Intake Total 4080 4013.3 1240 Balance 4080 4013.3 1240 Meds/Results Medications: Active Medications Generic Name Dose Route Start Last Admin Trade Name Freq PRN Reason Stop Dose Admin Hydrocodone Bitart/Acetaminophen 1 tab 12/15/24 07:41 12/16/24 08:11 Hydrocodone/Acetaminophen (*Crx) 5-325 Mg Tablet PO 1 tab Q4H PRN Administration Pain Rated 4-6 Amitriptyline HCl 25 mg 12/14/24 21:00 12/15/24 21:26 Amitriptyline Hcl 25 Mg Tablet PO 25 mg HS NEHAL Administration Enoxaparin Sodium 40 mg 12/15/24 09:00 12/16/24 08:05 Enoxaparin 40 Mg/0.4 Ml Syringe SUB-Q 40 mg DAILY NEHAL Administration Estradiol 0.5 mg 12/14/24 09:00 12/16/24 08:05 Estradiol 0.5 Mg Tablet PO 0.5 mg DAILY NEHAL Administration Hydromorphone HCl 0.5 mg 12/15/24 10:44 12/16/24 13:28 Hydromorphone Hcl Inj (*Crx) 2 Mg/Ml Vial IV PUSH 0.5 mg Q3H PRN Administration Pain Rated 7-10 Ceftriaxone Sodium 1 gm/ 50 mls @ 100 mls/hr 12/15/24 10:00 12/16/24 09:46 Sodium Chloride IVPB 100 mls/hr Q24H NEHAL Administration Metronidazole 500 mg in 100 mls @ 100 mls/hr 12/14/24 19:00 12/16/24 13:23 Flagyl 500 Mg/Iso Soln 100 Ml IVPB 100 mls/hr Q8HR ENHAL Administration Meloxicam 15 mg 12/14/24 09:00 12/16/24 08:06 Meloxicam 7.5 Mg Tablet PO 15 mg QAM NEHAL Administration Ondansetron HCl 4 mg 12/14/24 13:36 12/14/24 17:20 Ondansetron Inj 4 Mg/2 Ml Vial IV PUSH 4 mg Q6H PRN Administration Nausea And Vomiting Pantoprazole Sodium 40 mg 12/14/24 12:10 12/16/24 17:11 Pantoprazole 40 Mg Tablet PO 40 mg BID NEHAL Administration Polyethylene Glycol 17 gm 12/15/24 07:41 12/16/24 08:10 Polyethylene Glycol 3350 17 Gm Powd.Pack PO 17 gm QAM PRN Administration Constipation Spironolactone 100 mg 12/14/24 12:10 12/16/24 17:11 Spironolactone 50 Mg Tablet PO 100 mg BID NEHAL Administration Radiology Results: ITS Impressions Abdomen X-Ray 12/16/24 14:25 IMPRESSION: A paucity of bowel gas within the left lower quadrant consistent with patient's known sigmoid diverticulitis for which follow-up CT examination may be performed for if the concern is for possible progression to abscess formation. Follow-up to resolution is recommended as a malignancy has a similar appearance. Abdomen/Pelvis CT 12/16/24 16:29 IMPRESSION: Redemonstration of mural thickening within the proximal sigmoid colon. The diverticulum are less prominent on today's examination for which the possibility of malignancy is suggested. Follow-up to resolution is again recommended as a malignancy has a similar appearance. No drainable fluid collection or gross perforation is appreciated Labs Labs: Laboratory Results - last 24 hr 12/16/24 05:05 WBC 5.8 RBC 4.18 L Hgb 12.4 Hct 38.5 MCV 92.1 MCH 29.7 MCHC 32.2 RDW 11.8 Plt Count 282 MPV 9.2 Sodium 132 L Potassium 4.4 Chloride 98 Carbon Dioxide 30 Anion Gap 4 BUN 8 Creatinine 0.74 Estim Creat Clear Calc 73 Estimated GFR > 60 Glucose 104 Calcium 8.8 Magnesium 2.0 Total Bilirubin 0.8 AST 23 ALT 12 Alkaline Phosphatase 53 Total Protein 7.0 Albumin 3.7 Quality VTE Prophylaxis VTE prophylaxis: pharmacologic ordered
[2024-12-16 19:53] VITALS: BP 129/64; PULSE 78; RESP 16; TEMP 36.8; O2SAT 100
[2024-12-16] MEDS: AMITRIPTYLINE HCL 25 MG TABLET PO (21:16)
[2024-12-17 04:59] VITALS: BP 115/61; PULSE 78; RESP 16; TEMP 36.1; O2SAT 99
[2024-12-17 05:08] LABS: Hematocrit 40.1 % (37.0-47.0); Hemoglobin 12.8 g/dL (12.0-15.0); Mean Corpuscular HGB Conc 31.9 g/dl (32-36); Mean Corpuscular Hemoglobin 29.9 pg (26-34); Mean Corpuscular Volume 93.7 fl (80-100); Platelet Count Result 305 k/mm3 (150-375); Red Blood Count 4.28 M/mm3 (4.2-5.4); White Blood Count 4.7 K/mm3 (4.5-10.0)
[2024-12-17 05:35] LABS: Alanine Aminotransferase 12 U/L (6-35); Albumin Level 3.6 g/dL (3.5-5.1); Alkaline Phosphatase 55 U/L (38-126); Anion Gap 4 mmol/L (4-12); Aspartate Amino Transferase 21 U/L (14-36); Bilirubin,Total 0.6 mg/dL (0.2-1.3); Blood Urea Nitrogen 7 mg/dL (7-17); Calcium 8.7 mg/dL (8.4-10.2); Carbon Dioxide 28 mmol/L (22-30); Chloride 99 mmol/L (98-107); Estimated CRCL calculation 78 ml/min; Estimated Glomerular Filt Rate > 60; Glucose 99 mg/dL (65-110); Magnesium 2.1 mg/dL (1.6-2.3); Potassium 3.9 mmol/L (3.4-5.0); Sodium 131 mmol/L (137-145); Total Protein 6.6 g/dL (6.3-8.2)
[2024-12-17] MEDS: metroNIDAZOLE 500 MG/ISO 100ML 500 MG/100 ML BAG 100 MG IVPB ×3 (05:56→21:13)
[2024-12-17] MEDS: PANTOPRAZOLE 40 MG TABLET PO ×2 (09:13→17:21)
[2024-12-17] MEDS: ENOXAPARIN 40 MG/0.4 ML SYRINGE SUB-Q (09:13)
[2024-12-17] MEDS: MELOXICAM 7.5 MG TABLET 15 MG PO (09:13)
[2024-12-17] MEDS: SPIRONOLACTONE 50 MG TABLET 100 MG PO ×2 (09:14→17:22)
--- NOTE | 2024-12-17 09:51 | P.CONGS_ITS ---
Assessment and Plan Assessment and plan (1) Diverticulitis: Code(s): K57.92 - Diverticulitis of intestine, part unspecified, without perforation or abscess without bleeding Status: Acute Assessment and Plan: * CT scan showing wall thickening of the sigmoid and descending colon on initial CT with diverticulosis. She appears to clinically be improving with IV antibiotics and her repeat CT scan yesterday still showed mural thickening in the sigmoid colon with less prominent diverticulum in this area, with the possibility of malignancy, but no perforation or abscess. She had a colonoscopy last year that was normal, which would make the risk of developing colon cancer since then very low. There is still the possibility that this is related to diverticulitis or an inflammatory process rather than malignancy. She is also concerned about the recent diagnosis of medication-induced lupus causing these changes in her bowel. GI was consulted and can evaluate for any need for further endoscopic evaluation. There is no indication for surgical intervention at this time. Would continue to treat for diverticulitis with antibiotics. Her diet could be advanced as tolerated to low fiber diet for 2 weeks, then transition to high fiber diet. She has already been educated by the dietitian. (2) Psoriatic arthritis: Code(s): L40.50 - Arthropathic psoriasis, unspecified Status: Acute (3) Ankylosing spondylitis: Code(s): M45.9 - Ankylosing spondylitis of unspecified sites in spine Status: Chronic (4) Hx of total adrenalectomy: Code(s): E89.6 - Postprocedural adrenocortical (-medullary) hypofunction Status: Chronic Plan I have discussed the patient's case and plan of care with Dr. Guerra. History of Present Illness Consult details Consult date: 12/17/24 Reason for consult: other (Mural thickening of sigmoid colon) Requesting physician: Jasmeet Harvey MD Narrative: This is a 54-year-old woman with history of insulin deficiency, ankylosing spondylitis and psoriatic arthritis on Remicade, history of Humberto's disease s/p left adrenalectomy, who we have been asked to see in surgical consultation for mural thickening of the sigmoid colon. She had an onset of cramping lower abdominal pain 4 days ago. Her pain began to localize more to the LLQ over the next 24 hours and she developed a fever, therefore she presented to the ED for evaluation on Sunday. Workup revealed leukocytosis and CT evidence of mural thickening and surrounding inflammatory change within the distal descending colon with infiltration of the adjacent mesentery, consistent with acute diverticulitis vs malignancy. No perforation or abscess. She was admitted to the hospitalist and started on IV antibiotics. Her white blood cell count normalized and she has been afebrile. Her diet has been slowly advanced to full liquids, which she has been tolerating. She was still requiring IV Dilaudid for her abdominal pain and had a repeat CT scan yesterday of the abdomen and pelvis, which showed persistent mural thickening of the sigmoid colon where diverticulum or less prominent, with still a possibility of malignancy. Still no perforation or abscess. Our service has been consulted and she is now seen on the medical floor. She has had issues with constipation, but finally had a bowel movement this morning and is feeling much better today. She reports her left lower quadrant pain has been improving. She denies known history of diverticulitis. She had a colonoscopy last July that was reportedly normal. No family history of colorectal cancer. To note, the patient recently started seeing a new data entry clerk. She has been on Remicade for ankylosing spondylitis for years and has had some changes in her symptoms prompting the new data entry clerk. They have done a thorough outpatient workup and she was diagnosed with psoriatic arthritis and they were concerned with medication induced lupus from the Remicade. She would be due for her next dose of Remicade this week and is supposed to be switching to Cosentyx this month. Review of Systems 2 Review of Systems: All systems reviewed & are unremarkable except as noted in HPI and below [facility] Past Medical History Medical History (Updated 12/17/24 @ 10:54 by ARIEL Frazier) Psoriatic arthritis [place] disease resulting in left adrenalectomy Canmer's disease GERD (gastroesophageal reflux disease) Ankylosing spondylitis Asthma Surgical History Surgical History History of inguinal hernia repair Right inguinal hernia repair as a child. Left inguinal hernia repair with plug mesh as an adult, with eventual removal of mesh and revision of hernia repair years later. History of incisional hernia repair Port site hernia of the left flank from adrenalectomy, which was repaired open with mesh. Hx of total adrenalectomy Laparoscopic left adrenalectomy S/P foot surgery, left Family History Family History Father Diabetes mellitus Social History Social History Smoking status: Former smoker Alcohol intake: current Substance use: never Substance use type: does not use Do You Feel Safe in your Home?: Yes Lack of Transportation: No Lack of Food: Never True Current Housing: I Have Housing Concerned About Future Housing: No Difficulty Paying Gas/Electric Bills: No Difficulty Paying for Meds: No Currently Unemployed: No Education: Associate Degree Difficulty w/ Childcare or Family Care: No Living arrangements: with family Gender identity (if verbalized by the patient): Female Sexual Orientation (if Verbalized by the Patient): Straight or Heterosexual Spiritual care concerns: No Meds Home Medications and Allergies Home Medications ?Medication ?Instructions ?Recorded ?Confirmed ?Type meloxicam 15 mg tablet 15 mg PO DAILY 04/11/21 12/14/24 History infliximab 100 mg intravenous 100 mg IV USEASDIRECTD 08/28/21 12/14/24 History solution (Remicade) amitriptyline 25 mg tablet 25 mg PO HS 12/14/24 12/14/24 History esomeprazole magnesium 40 mg 40 mg PO BID 12/14/24 12/14/24 History capsule,delayed release (Nexium) estradiol 0.5 mg tablet 0.5 mg PO DAILY 12/14/24 12/14/24 History metformin 500 mg tablet 500 mg PO BID 12/14/24 12/14/24 History spironolactone 100 mg tablet 100 mg PO BID 12/14/24 12/14/24 History Allergies Allergy/AdvReac Type Severity Reaction Status Date / Time No Known Allergies Allergy Verified 12/14/24 09:47 Vital Signs Vital Signs - 24 hr 12/16/24 14:00 12/16/24 19:53 12/16/24 21:04 Temperature 97.8 F 98.3 F Pulse Rate 73 78 Respiratory Rate 18 16 Blood Pressure 116/65 129/64 Pulse Oximetry 96 100 Oxygen Delivery Room Air 12/17/24 04:59 12/17/24 09:24 Temperature 97 F L Pulse Rate 78 Respiratory Rate 16 Blood Pressure 115/61 Pulse Oximetry 99 Oxygen Delivery Room Air Exam 2 Const: General: comfortable and no acute distress Nutritional Appearance: a verage body habitus Orientation/consciousness: patient oriented x3 HENMT: Head: normocephalic and atraumatic Ears: hearing grossly normal bilaterally Mouth: Yes moist mucous membranes Eyes: General: appearance normal, both eyes and all related structures P upils: Equal, round and reactive pupils present Neck: Neck: normal visual inspection and full ROM Resp: Effort & Inspection: no respiratory distress Auscultation: clear to auscultation bilaterally Cardio: Rate: regular rate Rhythm: regular rhythm Peripheral pulses: P eripheral pulses 2+ throughout GI: Inspection: non-distended, scar (Pfannenstiel, left flank transverse scar) and no visible herniation GI Palp: Yes Soft to palpation, Yes Tenderness to palpation present (GI) (LLQ, mild), No Guarding due to palpation present (GI), Yes No hepatosplenomegaly present and No Rebound tenderness present P ercussion: Yes normal to percussion Auscultation: normal bowel sounds R ectal Exam: deferred Skin: General skin exam: normal color Neuro: General: moves all extremities and no focal motor deficits Speech: n ormal speech Motor exam (neuro): 5/5 motor strength present throughout Extrem: General: normal to inspection and no edema Psych: Mental Status: mental status grossly normal Attitude: cooperative Insight: Good insight present (Psych) Judgement: Good judgement present (Psych) Results Labs 12/17/24 04:30 12/17/24 04:30 Labs: Abnormal lab results 12/17/24 Range/Units 04:30 MCHC 31.9 L (32-36) g/dl Sodium 131 L (137-145) mmol/L Creatinine 0.69 L (0.7-1.0) mg/dL Diabetes panel 12/17/24 Range/Units 04:30 Sodium 131 L (137-145) mmol/L Potassium 3.9 (3.4-5.0) mmol/L Chloride 99 (98-107) mmol/L Carbon Dioxide 28 (22-30) mmol/L BUN 7 (7-17) mg/dL Creatinine 0.69 L (0.7-1.0) mg/dL Glucose 99 (65-110) mg/dL Calcium 8.7 (8.4-10.2) mg/dL AST 21 (14-36) U/L ALT 12 (6-35) U/L Alkaline Phosphatase 55 (38-126) U/L Total Protein 6.6 (6.3-8.2) g/dL Albumin 3.6 (3.5-5.1) g/dL Calcium panel 12/17/24 Range/Units 04:30 Calcium 8.7 (8.4-10.2) mg/dL Albumin 3.6 (3.5-5.1) g/dL Pituitary panel 12/17/24 Range/Units 04:30 Sodium 131 L (137-145) mmol/L Potassium 3.9 (3.4-5.0) mmol/L Chloride 99 (98-107) mmol/L Carbon Dioxide 28 (22-30) mmol/L BUN 7 (7-17) mg/dL Creatinine 0.69 L (0.7-1.0) mg/dL Glucose 99 (65-110) mg/dL Calcium 8.7 (8.4-10.2) mg/dL Adrenal panel 12/17/24 Range/Units 04:30 Sodium 131 L (137-145) mmol/L Potassium 3.9 (3.4-5.0) mmol/L Chloride 99 (98-107) mmol/L Carbon Dioxide 28 (22-30) mmol/L BUN 7 (7-17) mg/dL Creatinine 0.69 L (0.7-1.0) mg/dL Glucose 99 (65-110) mg/dL Calcium 8.7 (8.4-10.2) mg/dL Total Bilirubin 0.6 (0.2-1.3) mg/dL AST 21 (14-36) U/L ALT 12 (6-35) U/L Alkaline Phosphatase 55 (38-126) U/L Total Protein 6.6 (6.3-8.2) g/dL Albumin 3.6 (3.5-5.1) g/dL All other labs normal. Imaging Additional studies: ITS Impressions Abdomen/Pelvis CT 12/14/24 07:41 IMPRESSION: Mural thickening and surrounding inflammatory change within the distal descending colon, with infiltration of the adjacent mesentery, consistent with (likely) acute diverticulitis for which follow-up to resolution is recommended as a malignancy can have a similar appearance. No gross perforation or drainable fluid collection. Abdomen X-Ray 12/16/24 14:25 IMPRESSION: A paucity of bowel gas within the left lower quadrant consistent with patient's known sigmoid diverticulitis for which follow-up CT examination may be performed for if the concern is for possible progression to abscess formation. Follow-up to resolution is recommended as a malignancy has a similar appearance. Abdomen/Pelvis CT 12/16/24 16:29 IMPRESSION: Redemonstration of mural thickening within the proximal sigmoid colon. The diverticulum are less prominent on today's examination for which the possibility of malignancy is suggested. Follow-up to resolution is again recommended as a malignancy has a similar appearance. No drainable fluid collection or gross perforation is appreciated
[2024-12-17] MEDS: cefTRIAXone 1 GM in SODIUM CHLORIDE 0.9% IV 50 ML 100 ML IVPB (10:51)
[2024-12-17 13:56] VITALS: BP 123/71; PULSE 88; RESP 18; TEMP 36.4; O2SAT 96
[2024-12-17] MEDS: HYDROcodone/acetaminophen (*CRX) 5-325 MG TABLET 1 TAB PO (15:21)
--- NOTE | 2024-12-17 16:36 | P.PNIM_ITS ---
Progress Note: A&P Assessment and Plan (1) Diverticulitis: Code(s): K57.92 - Diverticulitis of intestine, part unspecified, without perforation or abscess without bleeding Status: Acute Assessment and Plan: * Continue IV abx * Continue IVF for hydration * Continue PRN pain meds and PRN Anti-emetics * CT scan was independently reviewed by myself and there are no s/s of acute abscess formation and no perforation. * Discussed with pt that she will need outpt follow up colonoscopy upon discharge. (2) Hx of total adrenalectomy: Code(s): E89.6 - Postprocedural adrenocortical (-medullary) hypofunction Status: Chronic Assessment and Plan: * Continue Aldactone * Consider checking Cortisol levels (3) Ankylosing spondylitis: Code(s): M45.9 - Ankylosing spondylitis of unspecified sites in spine Status: Chronic Assessment and Plan: * Hold Remicade Plan patient presented with LLQ pain and is found to have diverticulitis, being treated with ceftriaxone and Flagyl, on 12/15 stated pain was getting better and felt better compared to when she arrived, however today pain was getting worsen and she had not had BM for several days, KUB was concerning to further evaluate CT of abdomen was done and showed redemonstration of mural thickening within the proximal sigmoid colon. The diverticulum are less prominent on today's examination for which the possibility of malignancy is suggested. did discuss with patient and her and answers their questions, will consult GI and general surgery for further recommendation. patient is instructed limit PO intake. today patient was seen by surgery service and stated patient does not need any surgical intervention, and seeing by GI recommended patient will need colonoscopy once her current symptoms have improved, will monitor, will assess and may discharge on oral antibiotics. Subjective Date/time seen: 12/17/24 16:36 Interval history: Abdominal Pain Narrative: This is a very pleasant 54 year old female pt with PMH of Cushings syndrome, Addisons syndrome, GERD, Asthma, Ankylosing Spondylosis on Remicade, who is s/p Total Adrenalectomy, who presented through the ER this AM with complaints of having lower abdominal pain for the past couple of days that spreads across the low abdomen, but then localized to the LLQ. She had a couple of days of N/V/D before the pain began, but none since. She denies any hematemesis, melena, or hematochezia. The pain is described as a cramp but has gradually become more sharp, intense and constant in the LLQ. Pt is not a diabetic, but states that she has taken Metformin from her PCP because her C-peptide was high signifying insulin resistance. She reports her last A1C was 5.8. She last had a colonoscopy in 07/2023 and it was normal. In the ER, pt was worked up and findings were significant for CT scan of abd and pelvis showing acute diverticulitis without abscess formation or perforation. Her WBC's were 15.8. Remainder of labs and workup normal. She was placed on Rocephin and Flagyl and started on pain control and admitted to the hospital for continued management and monitoring. patient presented with LLQ pain and is found to have diverticulitis, being treated with ceftriaxone and Flagyl, on 12/15 stated pain was getting better and felt better compared to when she arrived, however today pain was getting worsen and she had not had BM for several days, KUB was concerning to further evaluate CT of abdomen was done and showed redemonstration of mural thickening within the proximal sigmoid colon. The diverticulum are less prominent on today's examination for which the possibility of malignancy is suggested. did discuss with patient and her and answers their questions, will consult GI and general surgery for further recommendation. patient is instructed limit PO intake. today patient was seen by surgery service and stated patient does not need any surgical intervention, and seeing by GI recommended patient will need colonoscopy once her current symptoms have improved, will monitor, will assess and may discharge on oral antibiotics. Review of Systems Review of Systems: All systems reviewed & are unremarkable except as noted in HPI and below Exam Narrative: Patient is comfortable, NAD HEENT: eyes are clear and none icteric LUNGS:CTA HEART: RR S1S2 ABD: BS+, Soft and nontender Lower extremities: no edema SKIN: nonjaundiced Neuro: grossly intact. Objective Data Vital Signs Vital Signs: Vital Signs - 24 hr 12/16/24 19:53 12/16/24 21:04 12/17/24 04:59 Temperature 36.8 C 36.1 C L Pulse Rate 78 78 Respiratory Rate 16 16 Blood Pressure 129/64 115/61 Pulse Oximetry 100 99 Oxygen Delivery Room Air 12/17/24 09:24 12/17/24 13:56 Temperature 36.4 C Pulse Rate 88 Respiratory Rate 18 Blood Pressure 123/71 Pulse Oximetry 96 Oxygen Delivery Room Air Intake/Output Intake/Output: Intake & Output 12/14/24 12/15/24 12/16/24 12/17/24 23:59 23:59 23:59 23:59 Intake Total 4080 4013.3 3240 2660 Balance 4080 4013.3 3240 2660 Meds/Results Medications: Active Medications Generic Name Dose Route Start Last Admin Trade Name Freq PRN Reason Stop Dose Admin Hydrocodone Bitart/Acetaminophen 1 tab 12/15/24 07:41 12/17/24 15:21 Hydrocodone/Acetaminophen (*Crx) 5-325 Mg Tablet PO 1 tab Q4H PRN Administration Pain Rated 4-6 Amitriptyline HCl 25 mg 12/14/24 21:00 12/16/24 21:16 Amitriptyline Hcl 25 Mg Tablet PO 25 mg HS NEHAL Administration Enoxaparin Sodium 40 mg 12/15/24 09:00 12/17/24 09:13 Enoxaparin 40 Mg/0.4 Ml Syringe SUB-Q 40 mg DAILY NEHAL Administration Estradiol 0.5 mg 12/14/24 09:00 12/17/24 09:13 Estradiol 0.5 Mg Tablet PO 0.5 mg DAILY NEHAL Administration Hydromorphone HCl 0.5 mg 12/15/24 10:44 12/16/24 21:14 Hydromorphone Hcl Inj (*Crx) 2 Mg/Ml Vial IV PUSH 0.5 mg Q3H PRN Administration Pain Rated 7-10 Ceftriaxone Sodium 1 gm/ 50 mls @ 100 mls/hr 12/15/24 10:00 12/17/24 11:20 Sodium Chloride IVPB Infused Q24H NEHAL Infusion Metronidazole 500 mg in 100 mls @ 100 mls/hr 12/14/24 19:00 12/17/24 13:20 Flagyl 500 Mg/Iso Soln 100 Ml IVPB 100 mls/hr Q8HR NEHAL Administration Meloxicam 15 mg 12/14/24 09:00 12/17/24 09:13 Meloxicam 7.5 Mg Tablet PO 15 mg QAM NEHAL Administration Ondansetron HCl 4 mg 12/14/24 13:36 12/14/24 17:20 Ondansetron Inj 4 Mg/2 Ml Vial IV PUSH 4 mg Q6H PRN Administration Nausea And Vomiting Pantoprazole Sodium 40 mg 12/14/24 12:10 12/17/24 09:13 Pantoprazole 40 Mg Tablet PO 40 mg BID NEHAL Administration Polyethylene Glycol 17 gm 12/15/24 07:41 12/17/24 09:15 Polyethylene Glycol 3350 17 Gm Powd.Pack PO 17 gm QAM PRN Administration Constipation Spironolactone 100 mg 12/14/24 12:10 12/17/24 09:14 Spironolactone 50 Mg Tablet PO 100 mg BID NEHAL Administration Radiology Results: ITS Impressions Abdomen X-Ray 12/16/24 14:25 IMPRESSION: A paucity of bowel gas within the left lower quadrant consistent with patient's known sigmoid diverticulitis for which follow-up CT examination may be performed for if the concern is for possible progression to abscess formation. Follow-up to resolution is recommended as a malignancy has a similar appearance. Abdomen/Pelvis CT 12/16/24 16:29 IMPRESSION: Redemonstration of mural thickening within the proximal sigmoid colon. The diverticulum are less prominent on today's examination for which the possibility of malignancy is suggested. Follow-up to resolution is again recommended as a malignancy has a similar appearance. No drainable fluid collection or gross perforation is appreciated Labs Labs: Laboratory Results - last 24 hr 12/17/24 04:30 WBC 4.7 RBC 4.28 Hgb 12.8 Hct 40.1 MCV 93.7 MCH 29.9 MCHC 31.9 L RDW 11.6 Plt Count 305 MPV 10.1 Sodium 131 L Potassium 3.9 Chloride 99 Carbon Dioxide 28 Anion Gap 4 BUN 7 Creatinine 0.69 L Estim Creat Clear Calc 78 Estimated GFR > 60 Glucose 99 Calcium 8.7 Magnesium 2.1 Total Bilirubin 0.6 AST 21 ALT 12 Alkaline Phosphatase 55 Total Protein 6.6 Albumin 3.6 Quality VTE Prophylaxis VTE prophylaxis: pharmacologic ordered
--- NOTE | 2024-12-17 19:23 | P.CONGI_ITS ---
Assessment and Plan Assessment and plan (1) Diverticulitis: Code(s): K57.92 - Diverticulitis of intestine, part unspecified, without perforation or abscess without bleeding Status: Acute Assessment and Plan: new diagnosis, already feeling better with iv abx she is hoping to go home tomorrow with oral abx malignancy will be highly unlikely since she just had colonoscopy last year but I recommend to repeat another one in 3-4 weeks after resolution of acute diverticulitis for which she will call her GI doctor at [facility] (2) Abnormal CT scan, colon: Code(s): R93.3 - Abnormal findings on diagnostic imaging of other parts of digestive tract Status: Acute Assessment and Plan: most likely is from diverticulitis, less likely malignancy regardless need to wait for colonoscopy 3-4 more weeks (3) Abdominal pain, LLQ: Code(s): R10.32 - Left lower quadrant pain Status: Acute (4) Psoriatic arthritis: Code(s): L40.50 - Arthropathic psoriasis, unspecified Status: Acute (5) Immunocompromised state: Code(s): D84.9 - Immunodeficiency, unspecified Status: Acute Assessment and Plan: on remicade, h/o autoimmune condition GI Consult Note Consult date/time: 12/17/24 19:23 Reason for consult: diverticulitis HPI: Sienna Walker is a 54 year old female with history of ankylosing spondylitis and psoriatic arthritis on Remicade, history of Humberto's disease s/p left adrenalectomy here with new diagnosis of diverticulitis. She had new onset of cramping lower abdominal pain 4 days ago prior admission, also fever for 1 day. ER evaluation revealed leukocytosis and CT evidence of mural thickening and surrounding inflammatory change within the distal descending colon with infiltration of the adjacent mesentery, consistent with acute diverticulitis vs malignancy. No perforation or abscess. Started on iv abx and feeling better. Her last colonoscopy 07/2023 at [facility] only one polyp removed, no suspicious lesions. 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 She would be due for her next dose of Remicade this week and is supposed to be switching to Cosentyx this month. Review of Systems 2 Constitutional: Constitutional: Reports chills Comments: fever Eyes: Eyes: Denies blurry vision ENT: Reports Normal hearing present Cardiovascular: Cardiovascular: Denies chest pain Respiratory: Respiratory: Denies cough Gastrointestinal: Gastrointestinal: Reports abdominal pain Genitourinary: Genitourinary: Denies urinary urgency Musculoskeletal: Musculoskeletal: Denies neck pain Integumentary/Breasts: Skin/Breast: Denies rash Neurologic: Denies Abnormal speech present [facility] Past Medical History Medical History (Updated 12/17/24 @ 19:27 by Osiel Devine MD) Immunocompromised state Abnormal CT scan, colon Psoriatic arthritis 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 Left inguinal hernia repair with plug mesh as an adult, with eventual removal of mesh and revision of hernia repair years later. History of incisional hernia repair Port site hernia of the left flank from adrenalectomy, which was repaired open with mesh. Hx of total adrenalectomy Laparoscopic left adrenalectomy S/P foot surgery, left Family History Family History Father Diabetes mellitus Social History Social History Smoking status: Former smoker Alcohol intake: current Substance use: never Substance use type: does not use Do You Feel Safe in your Home?: Yes Lack of Transportation: No Lack of Food: Never True Current Housing: I Have Housing Concerned About Future Housing: No Difficulty Paying Gas/Electric Bills: No Difficulty Paying for Meds: No Currently Unemployed: No Education: Associate Degree Difficulty w/ Childcare or Family Care: No Living arrangements: with family Gender identity (if verbalized by the patient): Female Sexual Orientation (if Verbalized by the Patient): Straight or Heterosexual Spiritual care concerns: No Meds Home Medications and Allergies Home Medications ?Medication ?Instructions ?Recorded ?Confirmed ?Type meloxicam 15 mg tablet 15 mg PO DAILY 04/11/21 12/14/24 History infliximab 100 mg intravenous 100 mg IV USEASDIRECTD 08/28/21 12/14/24 History solution (Remicade) amitriptyline 25 mg tablet 25 mg PO HS 12/14/24 12/14/24 History esomeprazole magnesium 40 mg 40 mg PO BID 12/14/24 12/14/24 History capsule,delayed release (Nexium) estradiol 0.5 mg tablet 0.5 mg PO DAILY 12/14/24 12/14/24 History metformin 500 mg tablet 500 mg PO BID 12/14/24 12/14/24 History spironolactone 100 mg tablet 100 mg PO BID 12/14/24 12/14/24 History Allergies Allergy/AdvReac Type Severity Reaction Status Date / Time No Known Allergies Allergy Verified 12/14/24 09:47 Vital Signs Vital Signs - 24 hr 12/16/24 19:53 12/16/24 21:04 12/17/24 04:59 Temperature 98.3 F 97 F L Pulse Rate 78 78 Respiratory Rate 16 16 Blood Pressure 129/64 115/61 Pulse Oximetry 100 99 Oxygen Delivery Room Air 12/17/24 09:24 12/17/24 13:56 Temperature 97.6 F Pulse Rate 88 Respiratory Rate 18 Blood Pressure 123/71 Pulse Oximetry 96 Oxygen Delivery Room Air Exam 2 Const: General: comfortable and no acute distress Nutritional Appearance: a verage body habitus Orientation/consciousness: patient oriented x3 HENMT: Head: normocephalic and atraumatic Ears: hearing grossly normal bilaterally Mouth: Yes moist mucous membranes Eyes: General: appearance normal, both eyes and all related structures P upils: Equal, round and reactive pupils present Neck: Neck: normal visual inspection and full ROM Resp: Effort & Inspection: no respiratory distress Auscultation: clear to auscultation bilaterally Cardio: Rate: regular rate Rhythm: regular rhythm Peripheral pulses: P eripheral pulses 2+ throughout GI: Inspection: non-distended and no visible herniation GI Palp: Yes Soft to palpation, Yes Tenderness to palpation present (GI) (LLQ, mild), No Guarding due to palpation present (GI) and No Rebound tenderness present Percussion: Y es normal to percussion Auscultation: normal bowel sounds Skin: General skin exam: normal color Neuro: General: moves all extremities and no focal motor deficits Speech: n ormal speech Motor exam (neuro): 5/5 motor strength present throughout Extrem: General: normal to inspection and no edema Psych: Mental Status: mental status grossly normal Attitude: cooperative Insight: Good insight present (Psych) Judgement: Good judgement present (Psych) Results Labs 12/17/24 04:30 12/17/24 04:30 Labs: Short CBC 12/17/24 Range/Units 04:30 WBC 4.7 (4.5-10.0) K/mm3 Hgb 12.8 (12.0-15.0) g/dL Hct 40.1 (37.0-47.0) % Plt Count 305 (150-375) k/mm3 BMP 12/17/24 04:30 Sodium 131 L Potassium 3.9 Chloride 99 Carbon Dioxide 28 BUN 7 Creatinine 0.69 L Glucose 99 Calcium 8.7 Liver Function 12/17/24 Range/Units 04:30 Total Bilirubin 0.6 (0.2-1.3) mg/dL AST 21 (14-36) U/L ALT 12 (6-35) U/L Alkaline Phosphatase 55 (38-126) U/L Albumin 3.6 (3.5-5.1) g/dL
[2024-12-17 20:22] VITALS: BP 135/81; PULSE 76; RESP 18; TEMP 36.4; O2SAT 100
[2024-12-17] MEDS: AMITRIPTYLINE HCL 25 MG TABLET PO (21:13)
[2024-12-17 21:21] VITALS: O2SAT 100
[2024-12-18 04:05] VITALS: BP 122/77; PULSE 79; RESP 16; TEMP 36.5; O2SAT 99
[2024-12-18 04:53] LABS: Hematocrit 41.3 % (37.0-47.0); Hemoglobin 13.5 g/dL (12.0-15.0); Mean Corpuscular HGB Conc 32.7 g/dl (32-36); Mean Corpuscular Hemoglobin 29.9 pg (26-34); Mean Corpuscular Volume 91.6 fl (80-100); Platelet Count Result 388 k/mm3 (150-375); Red Blood Count 4.51 M/mm3 (4.2-5.4); White Blood Count 5.0 K/mm3 (4.5-10.0)
[2024-12-18 05:09] LABS: Alanine Aminotransferase 12 U/L (6-35); Albumin Level 3.6 g/dL (3.5-5.1); Alkaline Phosphatase 53 U/L (38-126); Anion Gap 6 mmol/L (4-12); Aspartate Amino Transferase 22 U/L (14-36); Bilirubin,Total 0.5 mg/dL (0.2-1.3); Blood Urea Nitrogen 9 mg/dL (7-17); Calcium 8.8 mg/dL (8.4-10.2); Carbon Dioxide 29 mmol/L (22-30); Chloride 103 mmol/L (98-107); Estimated CRCL calculation 71 ml/min; Estimated Glomerular Filt Rate > 60; Glucose 109 mg/dL (65-110); Magnesium 2.0 mg/dL (1.6-2.3); Potassium 4.3 mmol/L (3.4-5.0); Sodium 138 mmol/L (137-145); Total Protein 6.8 g/dL (6.3-8.2)
[2024-12-18] MEDS: metroNIDAZOLE 500 MG/ISO 100ML 500 MG/100 ML BAG 100 MG IVPB (06:15)
[2024-12-18] MEDS: PANTOPRAZOLE 40 MG TABLET PO (08:10)
[2024-12-18] MEDS: MELOXICAM 7.5 MG TABLET 15 MG PO (08:10)
[2024-12-18] MEDS: SPIRONOLACTONE 50 MG TABLET 100 MG PO (08:10)
[2024-12-18] MEDS: ENOXAPARIN 40 MG/0.4 ML SYRINGE SUB-Q (08:11)
[2024-12-18] MEDS: cefTRIAXone 1 GM in SODIUM CHLORIDE 0.9% IV 50 ML 100 ML IVPB (10:19)
--- NOTE | 2024-12-18 12:20 | P.DS_ITS ---
DS: Admitting Diagnosis Discharge Date 12/18/24 Admitting Diagnosis Abdominal Pain DS: Discharge Diagnosis Discharge Diagnosis (1) Diverticulitis: Code(s): K57.92 - Diverticulitis of intestine, part unspecified, without perforation or abscess without bleeding Status: Acute Assessment and Plan: * Continue IV abx * Continue IVF for hydration * Continue PRN pain meds and PRN Anti-emetics * CT scan was independently reviewed by myself and there are no s/s of acute abscess formation and no perforation. * Discussed with pt that she will need outpt follow up colonoscopy upon discharge. (2) Hx of total adrenalectomy: Code(s): E89.6 - Postprocedural adrenocortical (-medullary) hypofunction Status: Chronic Assessment and Plan: * Continue Aldactone * Consider checking Cortisol levels (3) Ankylosing spondylitis: Code(s): M45.9 - Ankylosing spondylitis of unspecified sites in spine Status: Chronic Assessment and Plan: * Hold Remicade Plan patient presented with LLQ pain and is found to have diverticulitis, being treated with ceftriaxone and Flagyl, on 12/15 stated pain was getting better and felt better compared to when she arrived, however today pain was getting worsen and she had not had BM for several days, KUB was concerning to further evaluate CT of abdomen was done and showed redemonstration of mural thickening within the proximal sigmoid colon. The diverticulum are less prominent on today's examination for which the possibility of malignancy is suggested. did discuss with patient and her and answers their questions, will consult GI and general surgery for further recommendation. patient is instructed limit PO intake. today patient was seen by surgery service and stated patient does not need any surgical intervention, and seeing by GI recommended patient will need colonoscopy once her current symptoms have improved, will monitor, will assess and may discharge on oral antibiotics. DS: Summary Hospital Course Hospital Course: patient presented with LLQ pain and is found to have diverticulitis, being treated with ceftriaxone and Flagyl, on 12/15 stated pain was getting better and felt better compared to when she arrived, however today pain was getting worsen and she had not had BM for several days, KUB was concerning to further evaluate CT of abdomen was done and showed redemonstration of mural thickening within the proximal sigmoid colon. The diverticulum are less prominent on today's examination for which the possibility of malignancy is suggested. did discuss with patient and her and answers their questions, will consult GI and general surgery for further recommendation. patient is instructed limit PO intake. today patient was seen by surgery service and stated patient does not need any surgical intervention, and seeing by GI recommended patient will need colonoscopy once her current symptoms have improved, will monitor, will assess and may discharge on oral antibiotics. patient clinical symptoms are improving, GI recommend to discharge the patient will follow up as an outpatient. will discharge patient today. Time Spent with Patient Time attestation: Total time spent providing and/or coordinating discharge services: Exam Narrative: Patient is comfortable, NAD HEENT: eyes are clear and none icteric LUNGS:CTA HEART: RR S1S2 ABD: BS+, Soft and nontender Lower extremities: no edema SKIN: nonjaundiced Neuro: grossly intact. DS: Data Data Completed and Pending Labs on day of discharge: Labs from last 24 hours 12/18/24 04:44 WBC 5.0 RBC 4.51 Hgb 13.5 Hct 41.3 MCV 91.6 MCH 29.9 MCHC 32.7 RDW 11.6 Plt Count 388 H MPV 9.0 Sodium 138 Potassium 4.3 Chloride 103 Carbon Dioxide 29 Anion Gap 6 BUN 9 Creatinine 0.77 Estim Creat Clear Calc 71 Estimated GFR > 60 Glucose 109 Calcium 8.8 Magnesium 2.0 Total Bilirubin 0.5 AST 22 ALT 12 Alkaline Phosphatase 53 Total Protein 6.8 Albumin 3.6 Preliminary micro results at discharge 12/14/24 09:20 Blood Culture - Preliminary Blood 12/14/24 09:20 Blood Culture - Preliminary Blood Discharge Plan Discharge Attending physician on discharge: Jasmeet Harvey Consulting providers: Osiel Devine; Olaf Beebe; Kayla Lopez; Leigh Moss; Leah Ellington Discharging Clinician: Jasmeet Harvey Patient Disposition: Home Activity: as tolerated Diet: low fiber and clear liquid Discharge Instructions: patient is instructed to avoid heavy fatty bulky meal, eat low fiber small amount, advance as tolerated and hydrate herself, patient to see her primary and GI provider as soon as possible. patient is instructed if she develops, abdominal pain, nausea, or vomiting to go to nearest ER. Patient Instructions: Antibiotic Form Patient Language: Lao Stand Alone Forms: General Discharge Information Follow-up/Referrals: Abelino Marmolejo [Other] Discharge Medications: New polyethylene glycol 3350 [Miralax] 17 gram Powder In Packet 17 g PO QAM PRN (Reason: Constipation) Qty: 14 0RF amoxicillin-pot clavulanate [Augmentin] 500-125 mg tablet 1 tablet PO Q8H Qty: 15 0RF Continued meloxicam 15 mg tablet 15 mg PO DAILY infliximab [Remicade] 100 mg Recon Soln 100 mg IV USEASDIRECTD Rx Instructions: Given IV every 8 weeks. esomeprazole magnesium [Nexium] 40 mg capsule,delayed release(DR/EC) 40 mg PO BID amitriptyline 25 mg tablet 25 mg PO HS estradiol 0.5 mg tablet 0.5 mg PO DAILY metformin 500 mg tablet 500 mg PO BID spironolactone 100 mg tablet 100 mg PO BID Date of admission: 12/17/24 10:08 Primary Care Provider: Abelino Marmolejo Admitting Provider: Jasmeet Harvey Attending physician on admission: Jasmeet Harvey Condition: Stable
== END 2024-12-18 13:30 | disposition home or self-care (01) | DRG 392 ==
LOC: ANHED 07:29 → ANH2MED 09:21
PROVIDERS: Nurse Practitioner Adult Health; Admitting Provider Family Medicine; Emergency Provider Emergency Medicine; Visit Provider Family Medicine
DX: K57.32 Diverticulitis of large intestine without perforation or abscess without bleeding (principal); E24.9 Cushing's syndrome, unspecified; E27.1 Primary adrenocortical insufficiency; E89.6 Postprocedural adrenocortical (-medullary) hypofunction; J45.909 Unspecified asthma, uncomplicated; K21.9 Gastro-esophageal reflux disease without esophagitis; L40.50 Arthropathic psoriasis, unspecified; M45.9 Ankylosing spondylitis of unspecified sites in spine
CPT/HCPCS: 36415; 74018; 74177; 80053; 81001; 83605; 83690; 83735; 85025; 85027; 87040; 87086; 96361; 96366; 96372; 96374; 96375; 96376; 99285; A9270; G0378; J0696; J1171; J1650; J1836; J2270; J2405; J3010; J7120; Q9967